=== PATIENT | male | born 1940 | race Caucasian/White ===

== ENCOUNTER 2019-11-23 23:53 | Inpatient (IN) ==
[2019-11-24] MEDS ORDERED: NS 1,000 ML IV ONE (00:25)
[2019-11-24 00:57] LABS: BASO# 0.02 X1000 (0.0-0.2); BASO% 0.3 % (0.0-0.8); EOS# 0.05 X1000 (0.0-0.7); EOS% 0.8 % (0.0-10.0); HEMOGLOBIN 11.7 g/dL (14.0-18.0); IMM GRAN# 0.01 X1000 (0.0-0.04); IMM GRAN% 0.2 % (0.0-0.5); LYMPH# 0.74 X1000 (1.2-3.4); LYMPH% 11.4 % (20.5-51.1); MCH 31.6 PG (27-31); MCHC 33.4 g/dL (33-37); MCV 94.6 FL (81-99); MONO# 0.89 X1000 (0.11-0.59); MONO% 13.7 % (1.7-9.3); MPV 9.5 FL (7.4-10.4); NEUT# 4.79 X1000 (1.4-6.5); NEUT% 73.6 % (42.2-75.2); PLT 150 X1000 (130-400); RDW 13.3 % (11.5-14.5)
[2019-11-24 01:10] LABS: ALBUMIN 3.5 g/dL (3.5-5.0); ALKALINE PHOSPHATASE 55 U/L (32-122); BUN 18 mg/dL (8-22); CALCIUM 8.4 mg/dL (8.8-10.2); CREATININE 0.7 mg/dL (0.7-1.2); ESTIMATED GFR > 60; GLUCOSE 103 mg/dL (70-104); GOT 29 U/L (10-34); GPT 16 U/L (10-44); TCO2 22 mmol/L (25-35); TOTAL PROTEIN 6.7 g/dL (6.3-8.3)
--- NOTE | 2019-11-24 01:21 | PROVIDER DOCUMENTATION ---
This chart was entered by Donita Quezada Scribe, acting as scribe for Ayde Araiza MD. HPI-Fever - General Chief Complaint: Fever Stated Complaint: FEVER/WHEEZING/CONFUSION Time Seen by Provider: 11/24/19 00:01 Source: patient, family Allergies/Adverse Reactions: Patient Allergies Allergy/AdvReac Type Severity Reaction Status Date / Time No Known Allergies Allergy Verified 11/24/19 00:04 Home Medications: Home Medication List Medication Instructions Recorded Confirmed Last Taken Type Atenolol [Tenormin] 50 mg PO DAILY 08/18/19 11/24/19 08/18/19 History Finasteride [Proscar] 5 mg PO DAILY 08/18/19 11/24/19 08/18/19 History Losartan [Cozaar] 100 mg PO DAILY 08/18/19 11/24/19 08/18/19 History Tamsulosin [Flomax] 0.4 mg PO BID 08/18/19 11/24/19 08/18/19 History Oseltamivir [Tamiflu] 45 mg PO BID 11/24/19 11/24/19 Unknown History - History of Present Illness-Fever Nature of Presenting Problem: pt is a 78 yowm presenting w/family to er w/cc pt [facility] he was dx w/flu friday, been on tamiflu since yest, pt had increased confusion, trouble ambulating fall yest and tonight, weakness and fever of 100.2. pt was given 4 doses of tamiflu (the daughter stopped tamiflu as she thought it was making him more confused). pt taking otc oscillococcinum otc. denies diarrhea, sob, cp, dizziness, xavier and dysuria. pt stays at independent living facility, fmily been staying w/pt bc of flu dx. At [place] [facility] pt is independent and has mild dementia as per daughter. Fever Severity/Quality: reports: low grade (100.2) Onset/Duration: reports: 5 days ago Timing: reports: still present Severity: reports: mild Context: reports: confusion, from snf (indep living) Recent Illness?: reports: other (influenza) Fever Therapy PEDIATRICIAN/MEDICAL DOCTOR: Initiated prescription medications (tamiflu), Initiated other (otc oscillococcinum) Cognitive Baseline: alert but confused Modifying Factors: improves with: nothing Associated Symptoms: reports: fever/chills, trouble walking, other (wheezing, fall) Similar Symptoms Previously?: Yes Recently seen or treated by another doctor?: Yes (seen at dr friday, +flu ) - Glascow Coma Score Best Eye Response (Jeronimo): (4) open spontaneously Best Verbal Response ([place]): (4) confused conversation Best Motor Response (Jeronimo): (5) localizes to pain [place] Total: 13 Review of Systems - Adult - REVIEW OF SYSTEMS - ADULT Constitutional: reports: see HPI, fever, other (increased confusion). denies: chills, fatique, night sweats Eyes: reports: no symptoms reported Ears, Nose, Mouth & Throat: reports: no symptoms reported Cardiovascular: reports: no symptoms reported Respiratory: reports: see HPI, wheezing. denies: cough, pleurisy, shortness of breath Gastrointestinal: reports: no symptoms reported. denies: diarrhea, nausea, vomiting Genitourinary: reports: no symptoms reported. denies: dysuria, hematuria, hesitency Musculoskeletal: reports: see HPI, muscle weakness. denies: joint pain, joint swelling, muscle aches Integumentary: reports: no symptoms reported Neurological: reports: see HPI, loss of balance. denies: dizziness/vertigo, headache/migraines, syncope Psychiatric: reports: no symptoms reported Endocrine: reports: no symptoms reported Hematologic/Lymphatic: reports: no symptoms reported Allergic/Immunologic: reports: no symptoms reported All Other Systems: Reviewed and Negative Past History - Adult - PAST MEDICAL HISTORY-ADULT Review of Records: reports: Nursing Assessment Review, Medications Reviewed, Social history reviewed & non-contributory. Major Childhood Illnesses: reports: denies history Cardiovascular: reports: HTN Respiratory: reports: denies history Gastrointestinal: reports: denies history Obstetrical/Gynecological: reports: denies history Genitourinary: reports: retention, other (enlarged prostate) Musculoskeletal: reports: denies history Neurological: reports: dementia Endocrine/Immune: reports: denies history Other Conditions: reports: denies history - PRIOR SURGERIES/PROCEDURES Surgical/Procedure History: reports: appendectomy, other - IMMUNIZATION STATUS Childhood Immunizations: See Nurse Assessment Flu Vaccine: See Nurse Assessment - FAMILY HISTORY Family History: reviewed, not pertinent - SOCIAL HISTORY Smoking: other (former smoker) Substance Use: alcohol Alcohol Use Frequency: rarely Physical Exam-General - PHYSICAL EXAM-ADULT Initial Vital Signs Reviewed: Yes - CONSTITUTIONAL General Appearance: appears well, no apparent distress, slow to respond. negative: cachetic, lethargic, combative - EYES Eyes: PERRL/EOMI, pink conjunctivae - HEAD, EARS, NOSE, MOUTH & THROAT HENMT: normocephalic/atraumatic, normal ENT inspection. negative: moist mucous membranes (dry muc mem) - NECK Neck: non-tender, full range of motion, supple, normal inspection - RESPIRATORY Respiratory: chest non-tender, lungs clear, normal breath sounds, no pleuratic chest pain, no respiratory distress, no accessory muscle use. negative: crackles, rhonchi, stridor, wheezing - CARDIOVASCULAR Cardiovascular: normal peripheral pulses, regular rate, rhythm - GASTROINTESTINAL (ABDOMEN) Abdominal Exam: normal bowel sounds, non tender, soft - MUSCULOSKELETAL Back Exam: normal inspection Extremity: normal range of motion, non-tender, normal inspection - SKIN Integumentary: normal color, normal turgor, warm/dry - NEUROLOGIC Neurologic: grossly normal - PSYCHIATRIC Psych/Mental Status: other (sharon x 2.). negative: oriented x 3 Progress - PLAN OF CARE/RESULTS Progress/Plan/Lab Results: Vital Signs - 8 hr 11/23/19 23:57 11/24/19 01:38 11/24/19 02:04 Temperature 98.1 F Pulse Rate 64 67 75 Respiratory Rate 18 22 24 Blood Pressure 218/107 203/105 228/134 O2 Sat by Pulse Oximetry 94 L 93 L 93 L 11/24/19 02:42 Temperature Pulse Rate Respiratory Rate Blood Pressure 203/102 O2 Sat by Pulse Oximetry Laboratory Results - last 24 hr 11/24/19 11/24/19 11/24/19 00:40 00:40 00:40 WBC 6.50 RBC 3.70 L Hgb 11.7 L Hct 35.0 L MCV 94.6 MCH 31.6 H MCHC 33.4 RDW Std Deviation 13.3 Plt Count 150 MPV 9.5 Immature Gran % (Auto) 0.2 Neut % (Auto) 73.6 Lymph % (Auto) 11.4 L [place] % (Auto) 13.7 H Eos % (Auto) 0.8 Baso % (Auto) 0.3 Immature Gran # (Auto) 0.01 Neut # (Auto) 4.79 Lymph # (Auto) 0.74 L [place] # (Auto) 0.89 H Eos # (Auto) 0.05 Baso # (Auto) 0.02 Sodium 135 L Potassium 3.5 Chloride 100 Carbon Dioxide 22 L Anion Gap 13 BUN 18 Creatinine 0.7 Estimated GFR/1.73 m2 > 60 BUN/Creatinine Ratio 26 Glucose 103 Calculated Osmolality 272 Calcium 8.4 L Total Bilirubin 0.90 AST 29 ALT 16 Alkaline Phosphatase 55 Trp-J-Naityettadb Pept Total Protein 6.7 Albumin 3.5 Globulin 3.0 Albumin/Globulin Ratio 1.0 Plasma Lactate 0.8 Urine Source Urine Color Urine Turbidity Urine pH Ur Specific [place] Urine Protein Ur Glucose (Stick) Ur Ketones (Stick) Urine Blood Urine Nitrite Urine Bilirubin Urobilinogen Dipstick Urine Leukocytes Urine WBC (Auto) Urine RBC (Auto) U Epithel Cells (Auto) Urine Bacteria (Auto) 11/24/19 11/24/19 00:40 03:03 WBC RBC Hgb Hct MCV MCH MCHC RDW Std Deviation Plt Count MPV Immature Gran % (Auto) Neut % (Auto) Lymph % (Auto) [place] % (Auto) Eos % (Auto) Baso % (Auto) Immature Gran # (Auto) Neut # (Auto) Lymph # (Auto) [place] # (Auto) Eos # (Auto) Baso # (Auto) Sodium Potassium Chloride Carbon Dioxide Anion Gap BUN Creatinine Estimated GFR/1.73 m2 BUN/Creatinine Ratio Glucose Calculated Osmolality Calcium Total Bilirubin AST ALT Alkaline Phosphatase Zqu-I-Uyyrwaxfwku Pept 5784 H Total Protein Albumin Globulin Albumin/Globulin Ratio Plasma Lactate Urine Source CLEAN CATCH Urine Color YELLOW Urine Turbidity CLEAR Urine pH 7.5 Ur Specific [place] 1.008 Urine Protein NEGATIVE Ur Glucose (Stick) NEGATIVE Ur Ketones (Stick) TRACE A Urine Blood LARGE A Urine Nitrite NEGATIVE Urine Bilirubin NEGATIVE Urobilinogen Dipstick NORMAL Urine Leukocytes NEGATIVE Urine WBC (Auto) <10 Urine RBC (Auto) TNTC A U Epithel Cells (Auto) <10 Urine Bacteria (Auto) NEGATIVE Orders Category Date Time Status Admit - [facility] Routine AdmDCTranf 11/24/19 04:05 Active Saline Loc NOW Care 11/24/19 00:25 Active CHEST-PORTABLE [RAD] Stat Exams 11/24/19 00:[address] HEAD W/O CONTRAST [CT] Stat Exams 11/24/19 00:25 Taken BLOOD CULTURE [BLDCUL] Stat Lab 11/24/19 00:44 Ordered BNP [PRO B-NATRIURETIC PEPTIDE] Stat Lab 11/24/19 00:40 Completed CBC WITH DIFF [HEME] Stat Lab 11/24/19 00:40 Completed COMPREHENSIVE METABOLIC PANEL [CHEM] Stat Lab 11/24/19 00:40 Completed LACTATE, PLASMA [CHEM] Stat Lab 11/24/19 00:40 Completed URINALYSIS W/POSS RFLX CULT [URINALYSIS] Stat Lab 11/24/19 03:03 Completed 0.9% Sodium Chloride Inj [Ns] 1,000 ml Med 11/24/19 00:25 Discontinued IV 999 mls/hr Azithromycin 500 mg/Ns [Zithromax 500 mg/Ns] Med 11/24/19 04:04 Active 500 mg in 250 ml IV NOW CefTRIAXONE [Rocephin] 1 gm Med 11/24/19 04:04 Active 0.9% Sodium Chloride Inj [Ns] 50 ml IV NOW Clonidine [Catapres] Med 11/24/19 02:43 Discontinued 0.1 mg PO NOW ONE Enalaprilat [Vasotec] Med 11/24/19 03:48 Discontinued 0.625 mg IV NOW ONE Furosemide [Lasix] Med 11/24/19 03:48 Discontinued 40 mg IV NOW ONE Lidocaine 2% Jelly Appl [Xylocaine 2% Jelly Uroject] Med 11/24/19 02:07 Discontinued 10 ml .ROUTE .STK-MED ONE Lorazepam [Ativan] Med 11/24/19 03:37 Discontinued 0.5 mg IV NOW ONE Pulse Oximetry Stat Oth 11/24/19 00:25 Completed Transfer/Admit Order [TRANSFER] Routine Transfer 11/24/19 04:07 Ordered Result Diagrams: 11/24/19 00:40 11/24/19 00:40 - REASSESSMENT Reassessment #1 Time Reassessed: 02:00 Status: other (questionable RLL infiltrate. UA pending) Reassessment #2 Time Reassessed: 03:00 Status: other (BP continued to be elevated, Clonidine ordered. Pt is little restless, will order some clonidine.) Reassessment #3 Time Reassessed: 03:45 Status: other (BP still elevated, will add lasix and enalaprilat. UA shows hematuria, negative leucks and Nitratites. Will admit, d/w Dr Robertson. Will add abxs for CAP, continue tamiflu.) - CONSULTS/PCP/HOSPITALIST Notification #1 *Consult/PCP/Hospitalist*: d/w Dr Robertson Time Discussed: 03:55 Consult Disposition: Admit Departure - Departure Date of Disposition Decision: 11/24/19 Time of Disposition Decision: 04:03 DIAGNOSIS: CHF (congestive heart failure), Generalized weakness, Frequent falls, Pneumonia, AMS (altered mental status), Uncontrolled hypertension Disposition: ADMITTED INPATIENT 09 Certified Medical Emergency: Emergent Condition: Stable Additional Instructions: ED Follow Up Instructions: You have been treated by a care provider in the Emergency Department. These instructions are being provided to you so you can have an understanding of how to care for yourself upon discharge. Upon discharge from the Emergency Department, you are responsible for making arrangements for follow-up care by a physician of your choice. Take all prescribed medications as directed. Return to the Emergency Department immediately for any new or worsening symptoms. You may call the Physician Referral phone number at [phone] to obtain a list of Physicians who are taking new patients. Referrals and Follow-Ups: None,PCP [NON-STAFF PROVIDER] - Discharge Education: Influenza, Adult, [id number] - Critical Care Note This patient required my direct & personal management of CC.: No Attestation - Physician/ MILAGRO Attestation Patient care was provided by Advanced Practice Provider:: No The physician spent face to face time with patient:: Yes Advanced Practice Provider documentation review:: Supervising physician onsite and consulted in the evaluation and care of this patient. The physician did have a face to face encounter with the patient. This chart was documented by the indicated scribe, (Donita Quezada Scribe) and accurately reflects the services I performed and decisions made by me, Ayde Araiza MD, as attested by the provider's signature.
[2019-11-24 02:07] LABS: CHLORIDE 100 mmol/L (98-107); POTASSIUM 3.5 mmol/L (3.5-5.1); SODIUM 135 mmol/L (136-145)
[2019-11-24] MEDS ORDERED: XYLOCAINE 2% JELLY UROJECT ONE (02:07)
[2019-11-24 02:12] LABS: AGAP 13; COSMO 272
[2019-11-24] MEDS ORDERED: CATAPRES PO ONE (02:43)
[2019-11-24 03:09] LABS: URINE SOURCE CLEAN CATCH
[2019-11-24] MEDS ORDERED: ATIVAN IV ONE (03:37)
[2019-11-24 03:42] LABS: BILIRUBIN URINE NEGATIVE (NEGATIVE); BLOOD URINE LARGE (NEGATIVE); COLOR YELLOW; GLUCOSE URINE NEGATIVE (NEGATIVE); KETONE URINE TRACE mg/dL (NEGATIVE); LEUKOCYTES URINE NEGATIVE (NEGATIVE); NITRITE URINE NEGATIVE (NEGATIVE); PH URINE 7.5; PROTEIN URINE NEGATIVE (NEGATIVE); SP GRAVITY URINE 1.008; TURBIDITY URINE CLEAR (CLEAR); UROBILINOGEN URINE NORMAL (NORMAL)
[2019-11-24 03:44] LABS: UR EPITHELIAL CELLS <10 /HPF (<10); URINE BACTERIA NEGATIVE /HPF; URINE RBC TNTC /HPF (<10); URINE WBC <10 /HPF (<10)
[2019-11-24] MEDS ORDERED: VASOTEC IV ONE ×2 (03:48→04:42)
[2019-11-24] MEDS ORDERED: LASIX IV ONE (03:48)
[2019-11-24] MEDS ORDERED: ROCEPHIN 1 GM in NS 50 ML IV ONE (04:04)
[2019-11-24] MEDS ORDERED: ZITHROMAX 500 MG/NS 500 MG/250 ML IVPB IV ONE (04:04)
[2019-11-24] MEDS ORDERED: CATAPRES PO PRN (04:40)
--- NOTE | 2019-11-24 08:53 | Diag Imaging Result Doc PS360 ---
CHEST-PORTABLE - 11/24/2019 INDICATION: cough COMPARISON: None FINDINGS: There is cardiomegaly and central pulmonary vascular congestion. No infiltrates or edema. No large pleural effusion. IMPRESSION: Cardiomegaly and pulmonary vascular congestion. Electronically signed by Damien Crow 11/24/2019 8:51 AM
--- NOTE | 2019-11-24 09:23 | HISTORY AND PHYSICAL ---
PRIMARY CARE PHYSICIAN: Dr. Chinchilla. CHIEF COMPLAINT: The patient was diagnosed with the flu on Friday, started Tamiflu and has had increased confusion with a fall x2 and increased weakness. HISTORY OF PRESENTING ILLNESS: This is a 78-year-old male, who presents to [facility] ER with family at the time of arrival, stating that he had been diagnosed with the flu on Friday and started Tamiflu, had taken about 4 doses of the Tamiflu, but continued to have increased weakness. He had 2 falls and increased confusion. Had to be placed in soft wrist restraints bilaterally due to pulling at equipment and confusion. When he arrived, his blood pressure was 218/107. He was satting 94% on room air. Labs were fairly unremarkable. He did have an elevated proBNP at 5784. No previous to compare to. His chest x- ray per ER read was a right lower lobe infiltrate, so he is being admitted for further evaluation and treatment. PAST MEDICAL HISTORY: Dementia, hypertension and an enlarged prostate. PAST SURGICAL HISTORY: An appendectomy. FAMILY HISTORY: Reviewed and noncontributory. SOCIAL HISTORY: Currently lives in an assisted living facility independently. He is a former smoker. Denied any alcohol or illicit drug use. ALLERGIES: No known drug allergies. HOME MEDICATIONS: We will hold his Tamiflu 45 mg p.o. b.i.d., continue his Tenormin 50 mg p.o. daily, Proscar 5 mg p.o. daily and Cozaar 100 mg p.o. daily, sertraline 100 mg p.o. daily and Flomax 0.4 mg p.o. b.i.d. LABORATORY DATA: Showed a white blood cell count of 6.50, hemoglobin 11.7, hematocrit 35, platelets 150. Sodium 135, potassium 3.5, chloride 100, CO2 22. BUN of 18, creatinine 0.7, glucose 103. ProBNP of 5784. Plasma lactate of 0.8. Urinalysis was negative, except for blood. IMAGING STUDIES: Chest x-ray per ER documentation showed a right lower lobe infiltrate. Awaiting Radiology read and head CT is pending. REVIEW OF SYSTEMS: Unable to obtain from patient. The family does report increased weakness, increased confusion, fall x2 since being diagnosed with the flu Friday. PHYSICAL EXAMINATION: VITAL SIGNS: On arrival, he had a temperature of 98.1 degrees, pulse 64, respirations 18, blood pressure 218/107, satting 94% on room air. He was given several antihypertensive medications in the emergency room, but it did not seem to affect his blood pressure. This morning, it is 206/103. We will continue his home medications, and I will also add some hydralazine p.r.n. GENERAL: This is a 78-year-old male lying in the bed, confused x3. Remains in bilateral soft wrist restraints due to confusion and pulling at medical equipment. HENT: Normocephalic, atraumatic. Normal ENT inspection. Oropharynx and nares are clear. EYES: Pupils are equal, round, reactive to light and accommodation. Extraocular movements are intact. NECK: Normal inspection. Normal range of motion. LUNGS: Clear to auscultation bilaterally with equal lung expansion and chest wall movement. HEART: With regular rate and rhythm. No murmurs, rubs, or gallops. ABDOMEN: Soft, nontender, nondistended. Bowel sounds are present x4 quadrants. MUSCULOSKELETAL: He had 5/5 strength x4 extremities. NEUROLOGICAL: The cranial nerves 2-12 appear grossly intact. ASSESSMENT: 1. Metabolic encephalopathy. 2. Right lower lobe pneumonia. 3. Uncontrolled hypertension. 4. Dementia. Aware. PLAN: He was admitted to the medical unit, placed on a healthy heart diet, telemetry. We will place him on Rocephin 1 gram IV q. 24 hours and azithromycin 500 mg IV q. 24 hours. He received a dose of each of those in the emergency room. We will continue his home medications as previously identified. I am going to place him on hydralazine 10 mg IV q. 4 hours p.r.n. for systolic blood pressure greater than 190, diastolic greater than 100. All of his electrolytes looked well, so we are going to hold off on giving him any fluids as he did have a mild bump in his proBNP, but I do not have anything to compare it with previously. He received 4 doses of the Tamiflu. I am not going to continue that at this point. He is on respiratory precautions. Recheck a CBC, BMP in the a.m. and further orders after seen by attending. Dictated by DALLAS Linder for Dwayne Robertson MD cc: Daja DejanDALLAS cisse MD Akram Haggag, MD
[2019-11-24] MEDS: COZAAR PO SCH (09:57)
[2019-11-24] MEDS: TENORMIN PO SCH (09:57)
[2019-11-24] MEDS: ZOLOFT PO SCH (09:57)
[2019-11-24] MEDS: PROSCAR PO SCH (09:57)
[2019-11-24] MEDS: FLOMAX PO SCH ×2 (09:57→20:56)
--- NOTE | 2019-11-24 10:18 | Diag Imaging Result Doc PS360 ---
CT HEAD W/O CONTRAST - 11/24/2019 INDICATION: altered mental status COMPARISON: 08/18/2019 FINDINGS: Stable moderate diffuse cerebral atrophy. Stable advanced cerebral white matter chronic microvascular ischemia. No intracranial mass or hemorrhage. The skull is intact. The sinuses are clear. IMPRESSION: No acute process. This exam was performed using automated exposure control, adjustment of mA or kV according to patient size, and/or use of iterative reconstruction technique Electronically signed by Damien Crow 11/24/2019 10:16 AM
[2019-11-24] MEDS: DUONEB (A & A) INH SCH ×4 (11:12→22:51)
[2019-11-24] MEDS ORDERED: RISPERDAL M-TAB PO ONE (12:45)
--- NOTE | 2019-11-24 13:09 | HISTORY AND PHYSICAL ---
ADDENDUM: The patient came in with confusion. He was recently diagnosed with the flu. He has been on 4 doses of Tamiflu. It was stopped because there was concern that it was making him more confused. He does have baseline dementia. He also had very high blood pressure. He is being treated for pneumonia, but his x-ray is being read as heart failure and not pneumonia. He does not have a white count. He does not have any fever. He has empirically been placed on antibiotics, but I think this may be a misdiagnosis. It looks like he may have some heart failure. PROBLEM LIST: 1. Congestive heart failure exacerbation presumably. May have been triggered by the flu. We will continue diuretics. He is on medications already for blood pressure. These may need to be further adjusted. He is maxed out on those other two, so we may need to put him on some Norvasc and see how he does. 2. Pneumonia. If his procalcitonin level is normal, I do not think we necessarily need to continue antibiotics. 3. Recent flu. He only got two doses of treatment, but I guess there is concern it may be making him confused. I think it is probably just the flu. He is in restraints. I am going to start some Risperdal, and will see how he does. 4. Disposition. Pending his clinical status. cc: Dwayne Robertson MD
[2019-11-24] MEDS: LASIX IV SCH (16:45)
[2019-11-24] MEDS: RISPERDAL M-TAB PO SCH (20:57)
[2019-11-25] MEDS: DUONEB (A & A) INH SCH ×6 (03:01→22:49)
[2019-11-25] MEDS: ROCEPHIN 1 GM in NS 50 ML IV SCH (03:46)
[2019-11-25] MEDS: LASIX IV SCH ×2 (03:46→15:24)
[2019-11-25] MEDS ORDERED: ZITHROMAX 500 MG/NS 500 MG/250 ML IVPB IV SCH (05:00)
[2019-11-25 06:27] LABS: BASO# 0.01 X1000 (0.0-0.2); BASO% 0.2 % (0.0-0.8); EOS# 0.02 X1000 (0.0-0.7); EOS% 0.3 % (0.0-10.0); HEMATOCRIT 37.7 % (42.0-52.0); HEMOGLOBIN 12.4 g/dL (14.0-18.0); IMM GRAN# 0.02 X1000 (0.0-0.04); IMM GRAN% 0.3 % (0.0-0.5); LYMPH# 0.74 X1000 (1.2-3.4); LYMPH% 11.6 % (20.5-51.1); MCH 30.7 PG (27-31); MCHC 32.9 g/dL (33-37); MCV 93.3 FL (81-99); MONO# 0.85 X1000 (0.11-0.59); MONO% 13.3 % (1.7-9.3); MPV 9.4 FL (7.4-10.4); NEUT# 4.73 X1000 (1.4-6.5); NEUT% 74.3 % (42.2-75.2); PLT 179 X1000 (130-400); RBC 4.04 XMIL (4.7-6.1); WBC 6.37 X1000 (4.8-10.8)
[2019-11-25 07:26] LABS: SODIUM 141 mmol/L (136-145)
[2019-11-25 07:27] LABS: AGAP 14; BUN 18 mg/dL (8-22); CALCIUM 8.6 mg/dL (8.8-10.2); CHLORIDE 100 mmol/L (98-107); COSMO 283; CREATININE 0.8 mg/dL (0.7-1.2); ESTIMATED GFR > 60; GLUCOSE 99 mg/dL (70-104); TCO2 27 mmol/L (25-35)
[2019-11-25 07:28] LABS: POTASSIUM 2.4 mmol/L (3.5-5.1)
[2019-11-25] MEDS ORDERED: KLOR-CON PO ONE (07:28)
[2019-11-25] MEDS ORDERED: POTASSIUM CHLORIDE 20 MEQ/SWI 20 MEQ/100 ML IVPB IV ONE (07:29)
[2019-11-25] MEDS ORDERED: NS 1,000 ML ONE (07:51)
[2019-11-25] MEDS: COZAAR PO SCH (08:05)
[2019-11-25] MEDS: RISPERDAL M-TAB PO SCH ×2 (08:05→19:59)
[2019-11-25] MEDS: PROSCAR PO SCH (08:05)
[2019-11-25] MEDS: TENORMIN PO SCH (08:05)
[2019-11-25] MEDS: FLOMAX PO SCH ×2 (08:05→19:59)
[2019-11-25] MEDS: ZOLOFT PO SCH (08:06)
--- NOTE | 2019-11-25 11:17 | PROGRESS NOTE ---
DATE: 11/25/2019 SUBJECTIVE: Patient with no new complaints. Family is not currently available. Staff notes that he had issues with agitation overnight, but no other issues currently. OBJECTIVE: Vital Signs: Temperature 97.5 degrees, pulse 98, respiratory rate 18, BP 165/85. General: The patient is awake, but confused. Does not answer questions or follow commands. He is in no distress. HEENT: Normocephalic, atraumatic. DOROTHY. Neck: Supple. CV: Regular rate. Chest: Clear. Abdomen: Soft. Extremities: Moves all extremities. ASSESSMENT: 1. Acute delirium. 2. Metabolic encephalopathy secondary to pneumonia and influenza. 3. Influenza. 4. Pneumonia. 5. Uncontrolled hypertension. Continue hydralazine. 6. Hypoxemia. PLAN: Will continue the patient on oxygen. Will continue symptomatic care. Further orders as needed. cc: Salomon Mejia MD
--- NOTE | 2019-11-25 15:19 | ECHO REPORT ---
ORDER DATE: 11/25/2019 ECHOCARDIOGRAPHIC MEASUREMENTS: 1. Interventricular septum 1.3. 2. Left ventricular posterior wall 1.4. 3. Diastolic diameter 5.2. 4. Left atrium 4. 5. Aorta 3.6. SUMMARY: 1. Aortic valve leaflets are trileaflet. 2. Mitral valve was normal. 3. Tricuspid valve was normal. There is left atrial enlargement. Normal left ventricular cavity size. Concentric left ventricular hypertrophy. Estimated ejection fraction of 65%. 4. There is mild mitral regurgitation. 5. Mild tricuspid regurgitation. Peak velocity across the tricuspid valve was 3 m/sec. 6. Pulmonary artery systolic pressure of 46 mmHg. 7. Peak velocity across the aortic valve less than 2 m/sec. There is no aortic stenosis. There is mild aortic regurgitation. 8. There is no pericardial effusion or obvious intracardiac mass or thrombus. cc: MD Dwayne Hameed MD
[2019-11-25] MEDS: APRESOLINE IV PRN ×2 (17:25→22:23)
[2019-11-26] MEDS: ROCEPHIN 1 GM in NS 50 ML IV SCH (04:11)
[2019-11-26] MEDS: LASIX IV SCH ×2 (04:11→16:07)
[2019-11-26] MEDS: DUONEB (A & A) INH SCH ×6 (06:36→23:10)
--- NOTE | 2019-11-26 09:33 | PROGRESS NOTE ---
DATE: 11/26/2019 SUBJECTIVE: Patient is still confused, disoriented, does not answer questions nor follow commands. PHYSICAL EXAMINATION: Vital Signs: Reviewed. Temperature 99 degrees, respiratory rate 18, BP 172/82. General: Patient is awake, alert, pleasant, no distress. HEENT: Normocephalic. Neck: Supple. Cardiovascular: Regular rate. Chest: Clear. Abdomen: Soft. Extremities: No edema. Neurologic: Unable to assess given patient's confusion. He still is in soft restraints due to his confusion. ASSESSMENT: 1. Hypertension currently elevated, but stable. 2. Metabolic encephalopathy. 3. Right lower lobe pneumonia. 4. Dementia. 5. Hypokalemia. We will replace and recheck. PLAN: We will continue patient in the hospital. Continue treatment. Further orders as needed. cc: Salomon Mejia MD
[2019-11-26] MEDS: TENORMIN PO SCH (10:01)
[2019-11-26] MEDS: FLOMAX PO SCH ×2 (10:01→21:21)
[2019-11-26] MEDS: COZAAR PO SCH (10:01)
[2019-11-26] MEDS: PROSCAR PO SCH (10:01)
[2019-11-26] MEDS: ZOLOFT PO SCH (10:01)
[2019-11-26] MEDS: RISPERDAL M-TAB PO SCH ×2 (10:01→21:20)
[2019-11-26 10:07] LABS: HEMATOCRIT 41.3 % (42.0-52.0); HEMOGLOBIN 13.6 g/dL (14.0-18.0); MCH 30.9 PG (27-31); MCHC 32.9 g/dL (33-37); MCV 93.9 FL (81-99); MPV 9.2 FL (7.4-10.4); RBC 4.4 XMIL (4.7-6.1); RDW 13.2 % (11.5-14.5); WBC 6.51 X1000 (4.8-10.8)
[2019-11-26 10:22] LABS: AGAP 14; ALKALINE PHOSPHATASE 60 U/L (32-122); BUN 19 mg/dL (8-22); CALCIUM 9.4 mg/dL (8.8-10.2); CHLORIDE 101 mmol/L (98-107); COSMO 287; CREATININE 0.7 mg/dL (0.7-1.2); ESTIMATED GFR > 60; GLUCOSE 123 mg/dL (70-104); GOT 25 U/L (10-34); GPT 14 U/L (10-44); MAGNESIUM 1.7 mg/dL (1.5-2.7); SODIUM 142 mmol/L (136-145); TCO2 27 mmol/L (25-35); TOTAL PROTEIN 7.6 g/dL (6.3-8.3)
[2019-11-26] MEDS: KLOR-CON PO SCH ×2 (16:11→21:20)
[2019-11-26] MEDS ORDERED: PNEUMOVAX 23 IM ONE (19:24)
[2019-11-27] MEDS: DUONEB (A & A) INH SCH ×6 (02:51→23:38)
[2019-11-27] MEDS: ROCEPHIN 1 GM in NS 50 ML IV SCH (04:29)
[2019-11-27] MEDS: LASIX IV SCH (04:29)
--- NOTE | 2019-11-27 07:10 | Diag Imaging Result Doc PS360 ---
CHEST-PORTABLE - 11/27/2019 INDICATION: follow PNA/pulm edema COMPARISON: 11/24/2019 FINDINGS: The lungs are normally expanded and clear. Heart size and mediastinal contours are normal. No pneumothorax or pleural effusion. IMPRESSION: Negative exam. Electronically signed by Damien Crow 11/27/2019 7:07 AM
[2019-11-27] MEDS: KLOR-CON PO SCH ×2 (09:18→21:23)
[2019-11-27] MEDS: COZAAR PO SCH (09:18)
[2019-11-27] MEDS: ZOLOFT PO SCH (09:18)
[2019-11-27] MEDS: TENORMIN PO SCH (09:18)
[2019-11-27] MEDS: RISPERDAL M-TAB PO SCH ×2 (09:18→21:23)
[2019-11-27] MEDS: PROSCAR PO SCH (09:19)
[2019-11-27] MEDS: FLOMAX PO SCH ×2 (09:19→21:23)
--- NOTE | 2019-11-27 17:32 | PROGRESS NOTE ---
DATE: 11/27/2019 SUBJECTIVE: The patient has no complaints. He is calm. PHYSICAL EXAMINATION: Vital Signs: Reviewed. Temperature 98, pulse 81, respiratory rate 18, BP 142/90. General: Patient is awake, currently in no distress. HEENT: Normocephalic. Neck: Supple. Cardiovascular: Regular rate. Chest: Clear. Abdomen: Soft. Extremities: Moves all extremities. ASSESSMENT: 1. Metabolic encephalopathy, continuing to be problematic. 2. Hypertension, improving. 3. Hypokalemia, improving. 4. Right lower lobe pneumonia. 5. Dementia. PLAN: We will continue patient in the hospital. We will attempt to remove his restraints and will follow. Hopefully to rehab soon. cc: Salomon Mejia MD
[2019-11-28] MEDS: DUONEB (A & A) INH SCH ×7 (03:15→23:23)
[2019-11-28] MEDS: ROCEPHIN 1 GM in NS 50 ML IV SCH (04:24)
[2019-11-28 06:45] LABS: HEMOGLOBIN 12.7 g/dL (14.0-18.0); MCH 30.8 PG (27-31); MCHC 32.6 g/dL (33-37); MCV 94.4 FL (81-99); MPV 9.3 FL (7.4-10.4); RBC 4.13 XMIL (4.7-6.1); RDW 13.1 % (11.5-14.5); WBC 7.77 X1000 (4.8-10.8)
[2019-11-28 06:53] LABS: AGAP 13; ALBUMIN 3.8 g/dL (3.5-5.0); ALKALINE PHOSPHATASE 62 U/L (32-122); BUN 39 mg/dL (8-22); CALCIUM 9.6 mg/dL (8.8-10.2); CHLORIDE 103 mmol/L (98-107); COSMO 293; CREATININE 0.8 mg/dL (0.7-1.2); ESTIMATED GFR > 60; GLUCOSE 105 mg/dL (70-104); GOT 30 U/L (10-34); GPT 13 U/L (10-44); MAGNESIUM 2.1 mg/dL (1.5-2.7); POTASSIUM 3.2 mmol/L (3.5-5.1); SODIUM 142 mmol/L (136-145); TCO2 26 mmol/L (25-35); TOTAL PROTEIN 7.3 g/dL (6.3-8.3)
[2019-11-28] MEDS ORDERED: KLOR-CON PO ONE (09:36)
[2019-11-28] MEDS: COZAAR PO SCH (09:55)
[2019-11-28] MEDS: ZOLOFT PO SCH (09:55)
[2019-11-28] MEDS: TENORMIN PO SCH (09:56)
[2019-11-28] MEDS: KLOR-CON PO SCH ×2 (09:56→21:19)
[2019-11-28] MEDS: RISPERDAL M-TAB PO SCH ×2 (09:56→21:20)
[2019-11-28] MEDS: PROSCAR PO SCH (09:56)
[2019-11-28] MEDS: FLOMAX PO SCH ×2 (09:56→21:19)
--- NOTE | 2019-11-28 12:52 | PROGRESS NOTE ---
DATE: 11/28/2019 SUBJECTIVE: Patient with no complaints. States that he wants a cup of coffee. OBJECTIVE: Vital Signs: Temp 98, pulse 78, respiratory rate 18, BP 166/60. General: The patient is awake. He is in no distress. HEENT: Normocephalic. Neck: Supple. Cardiovascular: Regular rate. No murmurs. Chest: Clear. Abdomen: Soft. Extremities: Moves all extremities, although generalized weakness. ASSESSMENT: 1. Metabolic encephalopathy, improving. 2. Right lower lobe pneumonia. Continue antibiotics. 3. Hypertension, stable. 4. Hypokalemia, improving. PLAN: We are going to continue the patient in the hospital until which time he can transition to rehab. cc: Salomon Mejia MD
[2019-11-28] MEDS: APRESOLINE IV PRN (22:20)
[2019-11-29] MEDS: ROCEPHIN 1 GM in NS 50 ML IV SCH (03:01)
[2019-11-29] MEDS: DUONEB (A & A) INH SCH ×4 (03:15→15:27)
[2019-11-29] MEDS ORDERED: NORVASC PO SCH (09:00)
[2019-11-29] MEDS: FLOMAX PO SCH (09:30)
[2019-11-29] MEDS: RISPERDAL M-TAB PO SCH (09:31)
[2019-11-29] MEDS: TENORMIN PO SCH (09:31)
[2019-11-29] MEDS: KLOR-CON PO SCH (09:31)
[2019-11-29] MEDS: COZAAR PO SCH (09:31)
[2019-11-29] MEDS: ZOLOFT PO SCH (09:31)
[2019-11-29] MEDS: PROSCAR PO SCH (09:31)
--- NOTE | 2019-11-29 12:25 | DISCHARGE SUMMARY ---
ADMISSION DATE: 11/24/2019 DISCHARGE DATE: 11/29/2019 PRIMARY CARE PHYSICIAN: Dr. Chinchilla. ADMISSION DIAGNOSES: 1. Metabolic encephalopathy. 2. A right lower lobe pneumonia. 3. Uncontrolled hypertension. 4. Dementia. DISCHARGE DIAGNOSES: 1. Metabolic encephalopathy, improved. 2. Right lower lobe pneumonia, improved. 3. Hypertension. 4. Hypokalemia, improved. SUMMARY OF FINDINGS: This is a 78-year-old male. Who presented to the ER stating that he had been diagnosed with the flu on the Friday before and had started Tamiflu, but continued to have increased weakness with 2 falls and increased confusion. He had been placed in soft wrist restraints bilaterally due to pulling at his equipment and confusion. When he arrived, his blood pressure was also noted to be 218/107. He had an elevated proBNP of 5784 with no previous to compare to. His chest x-ray showed a right lower lobe infiltrate. He was admitted, placed on IV antibiotics. We placed him on some hydralazine p.r.n. He has improved. His white blood cell count remains normal. He did have a low potassium down to 2.4, now up to 3.2. His chest x-ray on 11/27/2019 showed a negative exam, and he has remained afebrile for greater than 24 hours, although it is now felt that he can safely be discharged to rehab. DISCHARGE MEDICATIONS: Include Omnicef 300 mg p.o. b.i.d. x7 days, losartan 100 mg p.o. daily, atenolol 50 mg p.o. daily, finasteride 5 mg p.o. daily, tamsulosin 0.4 mg p.o. b.i.d., sertraline 100 mg p.o. daily, vitamin C 500 mg p.o. daily, aspirin 81 mg p.o. daily, probiotic p.o. daily, vitamin D 3 5000 units p.o. daily, fish oil 1200 mg p.o. daily, 10 mg p.o. daily, multivitamin p.o. daily, Co-Q 10 100 mg p.o. daily, vitamin B 12 1000 mcg sublingually daily, Saw palmetto capsule 1 p.o. daily and magnesium 400 mg p.o. daily. FOLLOWUP: He will follow up with his primary care physician once he has completed his rehab stay. TIME SPENT: This is a 35 minute discharge. Dictated by DALLAS Linder for Salomon Mejia MD cc: DALLAS Linder MD Akram Haggag, MD MTDD
[2019-11-29 13:53] VITALS: BP 206/104
[2019-11-29] MEDS: APRESOLINE IV PRN (14:14)
--- NOTE | 2019-11-30 08:44 | DISCHARGE SUMMARY ---
ADMISSION DATE: 11/24/2019 DISCHARGE DATE: 11/29/2019 Overall, patient has improved. He was admitted to the hospital with metabolic encephalopathy secondary to right lower lobe pneumonia as well as hypertension. Blood pressures although elevated or not nearly severe. We did add Norvasc. Potassium was noted to be low on several occasions and was replaced. His metabolic encephalopathy appeared to have improved. He does have baseline. We will discharge him to rehab. cc: Salomon Mejia MD
== END 2019-11-29 16:30 ==
LOC: P.ED 23:53 → SUATTDRO 11-24 04:32 → P.MEDSURG 11-24 04:32
PROVIDERS: ATTEND Family Medicine

== ENCOUNTER 2019-12-05 07:13 | Inpatient (IN) ==
[2019-12-05] MEDS ORDERED: MORPHINE IV ONE (07:22)
[2019-12-05] MEDS ORDERED: NS 1,000 ML IV ONE (07:22)
[2019-12-05] MEDS ORDERED: ZOFRAN IV ONE (07:22)
--- NOTE | 2019-12-05 07:40 | Diag Imaging Result Doc PS360 ---
EXAM: CHEST-2 VIEWS 12/05/2019 HISTORY: fall right rib pain, recent pneumonia TECHNIQUE: AP and lateral chest COMMENT: There are fractures of the posterior seventh and eighth ribs on the right. There is no evidence of pneumothorax or pleural fluid collection. Overall there has been no significant change otherwise since 11/27/2019 considering differences in technique. IMPRESSION: Right rib fractures. Electronically signed by Malik Tovar 12/05/2019 7:37 AM
--- NOTE | 2019-12-05 08:09 | Diag Imaging Result Doc PS360 ---
EXAM: CT T-SPINE/L-SPINE W/O CON 12/05/2019 HISTORY: fall injury TECHNIQUE: This exam was performed using automated exposure control, adjustment of mA or kV according to patient size, and/or use of iterative reconstruction technique. COMMENT: Thoracic spine: There is bridging osteophyte formation throughout much of the thoracic spine with accentuated dorsal kyphosis. There is compression of the upper endplate of T12 and L1 with some retropulsion of fragments by less than 4 mm at T12. There is a large pleural fluid collection present on the right. There are apparent fractures of the posterior lateral right fourth, sixth, seventh, eighth, ninth, and 10th ribs. There is no evidence of pneumothorax. There is compressive atelectasis in the right lower lobe and some subsegmental atelectasis is seen in the left lower lobe. Lumbar spine: There is compression of the upper endplate of L1 with 5 mm of retropulsion of the posterior fragment. There is some concavity of the upper endplate of the L5 vertebral body which may also be due to to a compression fracture, however this is of uncertain age. There are no previous studies available for comparison. There is some disc bulge at the L4-5 level. There is disc bulge and mild spinal stenosis at L3-4 and somewhat severe spinal stenosis is present at the L2-3 level due to disc bulge and ligamentum flavum hypertrophy. There is also disc bulge at the L1-2 level. There is a fairly large cyst posterior to the right kidney which displaces the right kidney anteriorly. This is not entirely included on the yqezc-md-guja but is at least 7 cm in transverse dimension and over 14 cm in superior-inferior dimension. There appear to be at least two separate loculations.There is a large amount of stool present in the colon particularly in the cecum and rectosigmoid colon. IMPRESSION: 1. Compression fractures of T12 and L1 as described above. Multiple right rib fractures. 2. Right hemothorax. 3. Large right renal or pararenal cyst. Constipation. Other nonacute findings as described above. Electronically signed by Malik Tovar 12/05/2019 8:06 AM
--- NOTE | 2019-12-05 08:12 | Diag Imaging Result Doc PS360 ---
EXAM: CT HEAD/C-SPINE W/O CONTRAST 12/05/2019 HISTORY: head injury/pain TECHNIQUE: This exam was performed using automated exposure control, adjustment of mA or kV according to patient size, and/or use of iterative reconstruction technique. COMMENT: There are patchy periventricular white matter lucencies bilaterally and mild generalized cerebral atrophy is present. Compared to 11/24/2019 the appearance the brain has not changed significantly. There is no evidence of mass effect bleed or abnormal extra-axial fluid collection. The visualized paranasal sinuses are clear. The calvarium is intact. Cervical spine: There are no previous studies available for comparison. There is posterior osteophyte formation at C3-4 and C4-5. There is no evidence of prevertebral soft tissue swelling fracture or subluxation. The facets are aligned. There are hypertrophic changes present in the right C4-5 facet joint. IMPRESSION: 1. No evidence of acute intracranial disease. Chronic microvascular changes and atrophy. 2. Degenerative changes in the cervical spine without evidence of acute bony abnormality. Electronically signed by Malik Tovar 12/05/2019 8:09 AM
[2019-12-05 08:23] LABS: ALLEN TEST YES; BE 1.1 mmoll (-3.0-3.0); BLOOD TYPE ARTERIAL; HCO3-(ACT) 25.7 mmoll (20.0-26.0); METHB 1.1 % (0.0-1.5); O2HB 94.6 % (95.0-99.0); PCO2(98.6) 37 mmHg (35-45); PO2(98.6) 77 mmHg (60-100); SAMPLE BLOOD; SAO2 97.6 % (95.0-100.0); pH(98.6) 7.44 (7.35-7.45)
[2019-12-05 08:26] LABS: MODALITY ROOM AIR
[2019-12-05 08:37] LABS: URINE SOURCE CATH
[2019-12-05 08:43] LABS: BASO# 0.03 X1000 (0.0-0.2); BASO% 0.4 % (0.0-0.8); EOS# 0.16 X1000 (0.0-0.7); HEMATOCRIT 38.1 % (42.0-52.0); HEMOGLOBIN 12.1 g/dL (14.0-18.0); IMM GRAN# 0.02 X1000 (0.0-0.04); IMM GRAN% 0.2 % (0.0-0.5); LYMPH# 1.07 X1000 (1.2-3.4); LYMPH% 13.2 % (20.5-51.1); MCH 30.5 PG (27-31); MCHC 31.8 g/dL (33-37); MONO# 0.86 X1000 (0.11-0.59); MONO% 10.6 % (1.7-9.3); MPV 9.5 FL (7.4-10.4); NEUT# 5.94 X1000 (1.4-6.5); NEUT% 73.6 % (42.2-75.2); PLT 272 X1000 (130-400); RBC 3.97 XMIL (4.7-6.1); RDW 12.7 % (11.5-14.5); WBC 8.08 X1000 (4.8-10.8)
[2019-12-05 08:44] LABS: BILIRUBIN URINE NEGATIVE (NEGATIVE); BLOOD URINE NEGATIVE (NEGATIVE); COLOR YELLOW; GLUCOSE URINE NEGATIVE (NEGATIVE); KETONE URINE NEGATIVE (NEGATIVE); LEUKOCYTES URINE NEGATIVE (NEGATIVE); NITRITE URINE NEGATIVE (NEGATIVE); PH URINE 6.5; PROTEIN URINE 50 mg/dL (NEGATIVE); SP GRAVITY URINE 1.027; TURBIDITY URINE CLEAR (CLEAR); UROBILINOGEN URINE NORMAL (NORMAL)
[2019-12-05 08:46] LABS: UR EPITHELIAL CELLS <10 /HPF (<10); URINE BACTERIA NEGATIVE /HPF; URINE RBC <10 /HPF (<10); URINE WBC <10 /HPF (<10)
[2019-12-05 09:00] LABS: AGAP 9; ALB/GLOB RATIO 1.2; ALBUMIN 3.9 g/dL (3.5-5.0); ALKALINE PHOSPHATASE 116 U/L (32-122); BUN 22 mg/dL (8-22); CALCIUM 9.2 mg/dL (8.8-10.2); CHLORIDE 102 mmol/L (98-107); CK PROFILE 133 U/L (24-204); COSMO 279; CREATININE 0.8 mg/dL (0.7-1.2); ESTIMATED GFR > 60; GLUCOSE 99 mg/dL (70-104); GOT 25 U/L (10-34); GPT 13 U/L (10-44); LIPASE 32 U/L (13-60); MAGNESIUM 2.1 mg/dL (1.5-2.7); POTASSIUM 4.4 mmol/L (3.5-5.1); SODIUM 138 mmol/L (136-145); TCO2 27 mmol/L (25-35); TOTAL BILIRUBIN 0.97 mg/dL (0.20-1.00); TOTAL PROTEIN 7.2 g/dL (6.3-8.3)
[2019-12-05 09:12] LABS: INR 1.15; PROTIME 14.8 Seconds (11.0-16.0)
--- NOTE | 2019-12-05 10:36 | PROVIDER DOCUMENTATION ---
This chart was entered by Stephie Eubanks Scribe, acting as scribe for Jh Butcher MD. HPI-Musculoskeletal Pain/Inj - GENERAL Chief Complaint: Fall Stated Complaint: FALL Time Seen by Provider: 12/05/19 07:13 Source: patient - HX OF PRESENT ILLNESS-MUSKULOSKELTAL Nature of Presenting Problem: 78 y/o male is sent from [facility] with complaint of back pain after fall two days ago. The patient was recently discharged from here with diagnosis of pneumonia and multiple falls at which time he had a chest x-ray due to right rib pain and was found to have multiple rib fractures. The patient is sent back to the ED today with persistent back pain. Onset/Duration: 2 days ago Timing: still present Modifying Factors: worse with: movement Any recent injury?: Yes (fall two days ago ) Locality of Occurance: Other ([facility]) - FALL INJURY Location of Pain/Injury: reports: back Injury Associated Symptoms: reports: back/neck pain - BACK & NECK PAIN/INJURY Back/Neck Pain Location: reports: lumbar spine Context / Method of Injury: reports: fall Review of Systems - Adult - REVIEW OF SYSTEMS - ADULT Constitutional: reports: other (h/o dementia). denies: chills, fever Eyes: reports: no symptoms reported Ears, Nose, Mouth & Throat: reports: no symptoms reported Cardiovascular: reports: no symptoms reported Respiratory: reports: no symptoms reported Gastrointestinal: denies: diarrhea, nausea, vomiting Genitourinary: reports: no symptoms reported Musculoskeletal: reports: back pain. denies: joint pain, joint swelling Integumentary: reports: no symptoms reported Neurological: reports: no symptoms reported Endocrine: reports: no symptoms reported Hematologic/Lymphatic: reports: no symptoms reported Allergic/Immunologic: reports: no symptoms reported All Other Systems: Reviewed and Negative Past History - Adult - PAST MEDICAL HISTORY-ADULT Review of Records: reports: Old Records Reviewed, Nursing Assessment Review, Medications Reviewed Major Childhood Illnesses: reports: denies history Cardiovascular: reports: HTN Respiratory: reports: denies history Gastrointestinal: reports: denies history Obstetrical/Gynecological: reports: denies history Genitourinary: reports: retention, other (enlarged prostate) Musculoskeletal: reports: denies history Neurological: reports: dementia Endocrine/Immune: reports: denies history Other Conditions: reports: denies history - PRIOR SURGERIES/PROCEDURES Surgical/Procedure History: reports: appendectomy, other - IMMUNIZATION STATUS Childhood Immunizations: See Nurse Assessment Flu Vaccine: See Nurse Assessment - FAMILY HISTORY Family History: reviewed, not pertinent - SOCIAL HISTORY Smoking: other (former smoker) Substance Use: none presently/history of abuse (alcohol) Physical Exam-Injury Related - Physical Exam-Injury Related Initial Vital Signs Reviewed: Yes General Appearance: no apparent distress Head, Ears, Nose, Mouth & Throat: normocephalic/atraumatic, moist mucous membranes Respiratory: no respiratory distress, no accessory muscle use, rhonchi (scattered), other (right chest wall tenderness). negative: crepitus Cardiovascular: regular rate, rhythm Back Exam: other (low back paraspinous spasm and tenderness). negative: vertebral tenderness Integumentary: normal color, warm/dry Psych/Mental Status: other (demented and confused but appears to be baseline) Progress - PLAN OF CARE/RESULTS Progress/Plan/Lab Results: Vital Signs - 8 hr 12/05/19 07:26 12/05/19 07:28 12/05/19 07:30 Temperature 98.1 F Pulse Rate 69 Respiratory Rate 17 Blood Pressure 193/87 193/87 O2 Sat by Pulse Oximetry 97 97 12/05/19 08:24 Temperature Pulse Rate Respiratory Rate Blood Pressure O2 Sat by Pulse Oximetry 97 Laboratory Results - last 24 hr 12/05/19 12/05/19 12/05/19 08:15 08:15 08:15 WBC 8.08 RBC 3.97 L Hgb 12.1 L Hct 38.1 L MCV 96.0 MCH 30.5 MCHC 31.8 L RDW Std Deviation 12.7 Plt Count 272 MPV 9.5 Immature Gran % (Auto) 0.2 Neut % (Auto) 73.6 Lymph % (Auto) 13.2 L Rutherford % (Auto) 10.6 H Eos % (Auto) 2.0 Baso % (Auto) 0.4 Immature Gran # (Auto) 0.02 Neut # (Auto) 5.94 Lymph # (Auto) 1.07 L Rutherford # (Auto) 0.86 H Eos # (Auto) 0.16 Baso # (Auto) 0.03 PT INR Specimen Type ARTERIAL Sample Site R RADIAL pH 7.44 pCO2 37 pO2 77 HCO3 25.7 Base Excess 1.1 Oxyhemoglobin 94.6 L ABG O2 Sat (Calculated) 16.0 ABG O2 Saturation 97.6 ABG Carboxyhemoglobin 2.10 ABG Methemoglobin 1.1 Ariel Test YES A-a O2 Difference 26.0 Total Hemoglobin 12.0 Lactate 0.70 Blood Gas Modality ROOM AIR FiO2 % 21.0 Sodium 138 Potassium 4.4 Chloride 102 Carbon Dioxide 27 Anion Gap 9 BUN 22 Creatinine 0.8 Estimated GFR/1.73 m2 > 60 BUN/Creatinine Ratio 28 Glucose 99 POC Glucose Calculated Osmolality 279 Calcium 9.2 Magnesium 2.1 Total Bilirubin 0.97 AST 25 ALT 13 Alkaline Phosphatase 116 Creatine Kinase 133 Troponin T Wxv-A-Fleddlwzway Pept Total Protein 7.2 Albumin 3.9 Globulin 3.3 Albumin/Globulin Ratio 1.2 Lipase 32 Plasma Lactate Urine Source Urine Color Urine Turbidity Urine pH Ur Specific [place] Urine Protein Ur Glucose (Stick) Ur Ketones (Stick) Urine Blood Urine Nitrite Urine Bilirubin Urobilinogen Dipstick Urine Leukocytes Urine WBC (Auto) Urine RBC (Auto) U Epithel Cells (Auto) Urine Bacteria (Auto) 12/05/19 12/05/19 12/05/19 08:15 08:15 08:15 WBC RBC Hgb Hct MCV MCH MCHC RDW Std Deviation Plt Count MPV Immature Gran % (Auto) Neut % (Auto) Lymph % (Auto) Rutherford % (Auto) Eos % (Auto) Baso % (Auto) Immature Gran # (Auto) Neut # (Auto) Lymph # (Auto) Rutherford # (Auto) Eos # (Auto) Baso # (Auto) PT 14.8 INR 1.15 Specimen Type Sample Site pH pCO2 pO2 HCO3 Base Excess Oxyhemoglobin ABG O2 Sat (Calculated) ABG O2 Saturation ABG Carboxyhemoglobin ABG Methemoglobin Ariel Test A-a O2 Difference Total Hemoglobin Lactate Blood Gas Modality FiO2 % Sodium Potassium Chloride Carbon Dioxide Anion Gap BUN Creatinine Estimated GFR/1.73 m2 BUN/Creatinine Ratio Glucose POC Glucose Calculated Osmolality Calcium Magnesium Total Bilirubin AST ALT Alkaline Phosphatase Creatine Kinase Troponin T Oca-U-Lqdzviobwae Pept 4921 H Total Protein Albumin Globulin Albumin/Globulin Ratio Lipase Plasma Lactate 0.8 Urine Source Urine Color Urine Turbidity Urine pH Ur Specific [place] Urine Protein Ur Glucose (Stick) Ur Ketones (Stick) Urine Blood Urine Nitrite Urine Bilirubin Urobilinogen Dipstick Urine Leukocytes Urine WBC (Auto) Urine RBC (Auto) U Epithel Cells (Auto) Urine Bacteria (Auto) 12/05/19 12/05/19 12/05/19 08:15 08:15 08:42 WBC RBC Hgb Hct MCV MCH MCHC RDW Std Deviation Plt Count MPV Immature Gran % (Auto) Neut % (Auto) Lymph % (Auto) Rutherford % (Auto) Eos % (Auto) Baso % (Auto) Immature Gran # (Auto) Neut # (Auto) Lymph # (Auto) Rutherford # (Auto) Eos # (Auto) Baso # (Auto) PT INR Specimen Type Sample Site pH pCO2 pO2 HCO3 Base Excess Oxyhemoglobin ABG O2 Sat (Calculated) ABG O2 Saturation ABG Carboxyhemoglobin ABG Methemoglobin Ariel Test A-a O2 Difference Total Hemoglobin Lactate Blood Gas Modality FiO2 % Sodium Potassium Chloride Carbon Dioxide Anion Gap BUN Creatinine Estimated GFR/1.73 m2 BUN/Creatinine Ratio Glucose POC Glucose 197 H Calculated Osmolality Calcium Magnesium Total Bilirubin AST ALT Alkaline Phosphatase Creatine Kinase Troponin T < 0.010 Pet-U-Glnayaaqoxn Pept Total Protein Albumin Globulin Albumin/Globulin Ratio Lipase Plasma Lactate Urine Source CATH Urine Color YELLOW Urine Turbidity CLEAR Urine pH 6.5 Ur Specific [place] 1.027 Urine Protein 50 A Ur Glucose (Stick) NEGATIVE Ur Ketones (Stick) NEGATIVE Urine Blood NEGATIVE Urine Nitrite NEGATIVE Urine Bilirubin NEGATIVE Urobilinogen Dipstick NORMAL Urine Leukocytes NEGATIVE Urine WBC (Auto) <10 Urine RBC (Auto) <10 U Epithel Cells (Auto) <10 Urine Bacteria (Auto) NEGATIVE Orders Category Date Time Status Finger Stick Blood Sugar (ED) DIRECTED Care 12/05/19 07:19 Active Nursing- Obtain EKG once Care 12/05/19 07:19 Active Saline Loc NOW Care 12/05/19 07:19 Active CHEST-2 VIEWS [RAD] Stat Exams 12/05/19 07:[address] HEAD/C-SPINE W/O CONTRAST [CT] Stat Exams 12/05/19 07:[address] T-SPINE/L-SPINE W/O CON [CT] Stat Exams 12/05/19 07:21 Completed ABG [RESP] Routine Lab 12/05/19 08:15 Completed BLOOD CULTURE [BLDCUL] Stat Lab 12/05/19 08:15 Received CBC WITH ELECTRONIC DIFF [HEME] Stat Lab 12/05/19 08:15 Completed CK PROFILE [SP CHEM] Stat Lab 12/05/19 08:15 Completed COMPREHENSIVE METABOLIC PANEL [CHEM] Stat Lab 12/05/19 08:15 Completed LACTATE, PLASMA [CHEM] Stat Lab 12/05/19 08:15 Completed LIPASE [CHEM] Stat Lab 12/05/19 08:15 Completed MAGNESIUM [CHEM] Stat Lab 12/05/19 08:15 Completed PRO B-NATRIURETIC PEPTIDE Stat Lab 12/05/19 08:15 Completed PROTIME WITH INR [COAG] Stat Lab 12/05/19 08:15 Completed TROPONIN T Stat Lab 12/05/19 08:15 Completed URINALYSIS W/POSS RFLX CULT [URINALYSIS] Stat Lab 12/05/19 08:15 Completed 0.9% Sodium Chloride Inj [Ns] 1,000 ml Med 12/05/19 07:22 Discontinued IV 999 mls/hr Morphine Med 12/05/19 07:22 Discontinued 2 mg IV NOW ONE Ondansetron [Zofran] Med 12/05/19 07:22 Discontinued 4 mg IV NOW ONE EKG [EKG] Stat Ther 12/05/19 07:19 Ordered Result Diagrams: 12/05/19 08:15 12/05/19 08:15 - REASSESSMENT Reassessment #1 Time Reassessed: 10:33 Status: improving (better with IV morphine. Will need admission for pain control/pulmonary toilet. Old chart reviewed from last admission, d/c on 11/29) - EKG 1 Time of EKG reading by physician:: 09:17 EKG Read and Signed by:: Jh Butcher EKG Interpretation (*Must complete 3 of following elements*): Abnormal ST Wave: depressed (nonspecific) Comments: frequent PACs, LVH - CONSULTS/PCP/HOSPITALIST Notification #1 *Consult/PCP/Hospitalist*: Hospitalist Time Discussed: 10:32 Reason/Comments: thoracic spine FX Consult Disposition: Admit Departure - Departure Date of Disposition Decision: 12/05/19 Time of Disposition Decision: 10:34 DIAGNOSIS: Multiple fractures of ribs, right side, initial encounter for closed fracture, Hemothorax on right Compression fracture of T12 vertebra Qualifiers: Encounter type: initial encounter Qualified Code(s): S22.080A - Wedge compr ession fracture of T11-T12 vertebra, initial encounter for closed fracture Compression fracture of L1 lumbar vertebra Qualifiers: Encounter type: initial encounter Qualified Code(s): S32.010A - Wedge compression fracture of first lumbar vertebra, initial encounter for closed fracture Fall at [facility] Qualifiers: Encounter type: initial encounter Qualified Code(s): W19.XXXA - Unspecified fall, initial encounter; Y92.129 - Unspecified place in [facility] as the place of occurrence of the external cause Disposition: ADMITTED INPATIENT 09 Certified Medical Emergency: Emergent Condition: Stable Referrals and Follow-Ups: Brianne Chinchilla MD [Primary Care Provider] - - Critical Care Note This patient required my direct & personal management of CC.: No Attestation - Physician/ MILAGRO Attestation Patient care was provided by Advanced Practice Provider:: No The physician spent face to face time with patient:: Yes Advanced Practice Provider documentation review:: Supervising physician onsite and consulted in the evaluation and care of this patient. The physician did have a face to face encounter with the patient. This chart was documented by the indicated scribe, (Stephie Eubanks, Scribe) and accurately reflects the services I performed and decisions made by me, Jh Butcher MD, as attested by the provider's signature.
[2019-12-05] MEDS ORDERED: MORPHINE IV PRN (11:09)
[2019-12-05] MEDS ORDERED: TYLENOL PO PRN (11:09)
[2019-12-05] MEDS ORDERED: ZOFRAN IV PRN (11:09)
[2019-12-05] MEDS ORDERED: ROCEPHIN IM SCH (12:15)
[2019-12-05] MEDS ORDERED: XYLOCAINE-MPF 1% INJ PRN (12:37)
--- NOTE | 2019-12-05 12:46 | HISTORY AND PHYSICAL ---
PRIMARY CARE PROVIDER: Dr. Chinchilla. CHIEF COMPLAINT: Right rib pain, lower back pain. HISTORY OF PRESENT ILLNESS: Mr. Ezra Watkins is a 78-year-old male who was most recently admitted and treated for the flu and pneumonia. He was discharged to [facility], where he has been receiving physical therapy. According to the daughter, who is at the bedside, who is also a speech therapist at [facility], she states that he had experienced a fall on night, and then on Friday, he started having complaints of lower back pain, and yesterday when he had his clothing off, his daughter noticed he had a right hip that was bruised, and that he was holding his right chest in pain. He presents here with these complaints, was found to have rib fractures on the right from #4, and then 6 through 10, along with a large right hemothorax. He also had a T12 and L1 compression fracture of the spine, so we will treat him medically with pain medication. Will also consult Orthopedics and General Surgery. PAST MEDICAL HISTORY: 1. Dementia with frequent falls. 2. Hypertension. 3. Enlarged prostate. 4. Questionable congestive heart failure. He had an echo that was normal, ejection fraction 65%, but had left ventricular hypertrophy and pulmonary artery pressure of 46 mmHg, and this was on an echocardiogram that was performed on 11/25/2019, just this past month. PAST SURGICAL HISTORY: 1. On a previous H and P, it says appendectomy, but him and his daughter both deny that he has ever had an appendectomy. 2. Right hand tendon repair. 3. Bilateral cataracts. SOCIAL HISTORY: Quit smoking in his 40s. Apparently, he did abuse alcohol, and was actually admitted for alcohol abuse and withdrawal in 07/2019. He has not had any alcohol since then. He has been living in [facility], but for the past week or so, he has been at [facility]. FAMILY HISTORY: Mother had breast cancer. Father had stroke. ALLERGIES: Daughter said that Omnicef gave him a rash around his eyes. HOME MEDICATIONS: 1. Acetaminophen 650 mg p.o. p.r.n. every 4 hours. 2. Aspirin 81 mg p.o. daily. 3. Centrum Silver 1 tablet p.o. daily. 4. CoQ10 one capsule p.o. daily. 5. Cozaar 100 mg p.o. daily. 6. Fish oil 1200 mg p.o. daily. 7. Flomax 0.4 mg p.o. twice daily. 8. MiraLAX daily. 9. Potassium 40 mEq p.o. daily. 10. Magnesium oxide 400 mg p.o. daily. 11. Finasteride 5 mg p.o. daily. 12. Rocephin 1 gram IM daily. That is supposed to be ending on 12/11/2019, so we will continue that as an IV. 13. Sertraline 100 mg p.o. daily. 14. Atenolol 50 mg p.o. daily. 15. Vitamin B12, 1000 mcg sublingual daily. 16. Vitamin C 500 mg p.o. daily. 17. Vitamin D3, 5000 units p.o. daily. 18. Azithromycin 500 mg p.o. daily for a total of 7 days until 12/09/2019, just a couple more days left of that. REVIEW OF SYSTEMS: All are negative, except for those mentioned above in the HPI. PHYSICAL EXAMINATION: VITAL SIGNS: Temperature 98.1 degrees, heart rate 69, respiratory rate 17, blood pressure 168/90, sat 97% on room air. GENERAL: Mr. Ezra Watkins is a 78-year-old, male. He is in no acute distress. He is not agitated at this time. He is currently being nonverbal, not really talking to me or answering questions, so information was obtained through the daughter. This is likely secondary to his advanced dementia. HEENT: Atraumatic, normocephalic. Pupils equal, round, reactive to light. Extraocular movements intact. Mucous membranes are dry. NECK: Trachea midline. CARDIOVASCULAR: S1, S2. Regular rate and rhythm. No rubs, gallops, murmurs. No lower extremity edema. There are +2 dorsalis and radial pulses. Negative for JVD or carotid bruits. PULMONARY: Clear to auscultation. Bilateral breath sounds. No accessory muscle use or work of breathing noted. GASTROINTESTINAL: Soft, nontender, nondistended. Positive bowel sounds x4. EXTREMITIES: Decreased range of motion of all extremities. Decreased strength of all extremities, probably about a 4/5. NEUROLOGIC: Oriented to name. Really otherwise no conversation effort was made by him. SKIN: Warm, dry, intact. Bruising of the right hip noted. LABORATORY DATA: White blood cells 8000, hemoglobin 12, hematocrit 38, platelet count 272,000. INR is 1.15. PH 7.44, pCO2 of 37, PO2 of 77, bicarb 25.7, base excess 1.1, saturation 94%, lactate 0.7 (this is on room air). Sodium 138, potassium 4.4, BUN 22, creatinine 0.8, glucose 99, calcium 9.2. Magnesium 2.1. Bilirubin 0.97, AST 25, ALT 13. CK 133. Troponin less than 0.01. ProBNP 4921. Albumin 3.9. Lactate 0.8. Urinalysis 50 protein. IMAGING: Chest x-ray: Right rib fractures. Head and cervical spine CT: No acute changes. There is some degenerative disk disease. Thoracic lumbar spine compression fractures of T12 and L1, along with rib fractures #4, and then 6 through 10, along with a large right hemothorax. It also shows constipation. ASSESSMENT AND PLAN: 1. Frequent falls. He will need physical therapy. 2. Traumatic right rib fractures, #4, and 6 through 10, along with a right hemothorax that is large. General Surgery has been consulted. Hemoglobin and hematocrit are currently 12 and 38, which are at his baseline. He is not in any respiratory distress at this time. Morphine low-dose is being used for pain control. 3. Traumatic T12 and L1 compression fracture. Orthopedic Surgery is consulted, and pain control. Will do physical therapy. Maybe could use a brace. 4. Dementia. Reviewing his home medications, I do not see any medications for the dementia. 5. Reported congestive heart failure, but his ejection fraction was preserved. He did have some left ventricular hypertrophy and pulmonary hypertension. No changes with that. ProBNP is 4921. 6. Hypertension. Continue home medications. 7. Benign prostatic hypertrophy. Continue Flomax and Proscar. 8. Recent treatment for flu-induced pneumonia. Will continue the Rocephin 1 gram intramuscular until 12/11/2019, and will continue the oral azithromycin until the night. 9. Deep venous thrombosis prophylaxis. Sequential compression devices. 10. History of alcohol abuse, but has been sober since 07/2019. Dictated by DALLAS Ramirez for Trenton Richardson MD cc: DALLAS Ramirez MD
[2019-12-05] MEDS: NS 1,000 ML IV SCH (14:41)
[2019-12-05] MEDS: HALDOL IV PRN ×2 (16:31→20:42)
[2019-12-05] MEDS ORDERED: LIDODERM TOP SCH (17:00)
[2019-12-05] MEDS: ROCEPHIN 1 GM in NS 50 ML IV SCH (18:32)
--- NOTE | 2019-12-05 20:26 | GENERAL SURGERY CONSULTATION ---
DATE: 12/05/2019 REQUESTING PHYSICIAN: Dr. Richardson. REASON FOR CONSULTATION: Right hemothorax. HISTORY OF PRESENT ILLNESS: This is a 78-year-old male who apparently fell at [facility] where he was getting physical therapy. He recently had been discharged from the hospital with pneumonia and flu. He had back pain and chest pain and was brought to the hospital. He was found to have multiple right-sided rib fractures with a moderate right hemothorax as well as T12 and L1 compression fractures of the spine. He is a very poor historian. There is no one else available for history. PAST MEDICAL HISTORY: According to the chart, dementia, frequent falls, hypertension. PAST SURGICAL HISTORY: According to the chart, right hand tendon repair and bilateral cataract repair. HOME MEDICATIONS: According to chart review, multiple multivitamins, finasteride, magnesium, MiraLAX, Flomax, Cozaar, Centrum, aspirin, acetaminophen. ALLERGIES: Cefdinir. FAMILY HISTORY: His mother had breast cancer. Father had a stroke. SOCIAL HISTORY: He quit smoking in his 40s. He has a history of alcohol abuse. He has been living at [facility] but has been at [facility] recently. REVIEW OF SYSTEMS: Unobtainable. PHYSICAL EXAMINATION: Vital Signs: Temperature 98.5 degrees, pulse 83, respirations 19, blood pressure 151/88, O2 saturations 97%. General: Elderly, somewhat frail-appearing male who is actively trying to get out of bed and appears confused but is overall pleasant. He is nontoxic appearing. HEENT: Normocephalic, atraumatic. Extraocular muscles intact. Pupils equal, round, reactive to light. Sclerae anicteric. Moist mucous membranes. Neck: Supple. No thyromegaly. CV: Regular rate and rhythm. Respiratory: Clear bilateral breath sounds. No increased work of breathing. He does have some ecchymosis over the right lateral chest and is tender in the right side and back. GI: Soft, nondistended, nontender. No organomegaly or mass. Extremities: No clubbing, cyanosis, or edema. Skin: Warm and dry. No rash except for the ecchymoses noted above. LUNGS: White blood cell count 8, hemoglobin 12, hematocrit 38. Electrolytes reviewed and unremarkable. ABG looks normal. IMAGING: CT of the thoracic and lumbar spine as well as the chest x-ray with findings as noted above. ASSESSMENT AND PLAN: A 38-year-old male with recent fall and dementia. He has multiple right- sided rib fractures and hemothorax as well as T12 compression fracture as well as an L1 compression fracture. He does not appear to be any respiratory distress. I would not recommend a chest tube at this time. We may get a chest CT tomorrow to further evaluate for the hemothorax and whether tube drainage is needed. I would keep him admitted under close observation for his dementia and trying to get out of bed as well as development of pulmonary contusion or worsening hemothorax. cc: Arnold Portillo MD
[2019-12-05] MEDS: FLOMAX PO SCH (20:42)
--- NOTE | 2019-12-05 21:33 | HISTORY AND PHYSICAL ---
ADDENDUM: I agree with most components of history, physical, assessment, and plan mentioned in the nurse practitioner's note. This is an addendum to it. In brief, Mr. Watkins is 78 years old man with a past medical history of essential hypertension, gradually progressive dementia, recently diagnosed right lower lobe pneumonia with influenza in October 2019, recurrent falls, who was in the hospital and was discharged to rehab on 11/29/2019 when he was treated for pneumonia, comes in with another episode of fall. History was obtained from the records as well as from the daughter at bedside. The patient was noted to have some memory impairment about 1 year ago. He has had history of chronic alcoholism, which he eventually stopped in July 2019. He has been living in [place] since almost last 1 year. Since then, the daughter has noticed memory lapses and some cognitive impairment, which has been progressively getting worse, though, the patient was living independently in an assisted living facility until a few weeks ago. About 3 weeks ago, he started having recurrent falls and he was diagnosed with influenza about 2 weeks ago and he also developed pneumonia after that for which he was treated and was discharged to rehab on antibiotics. However, yesterday, the daughter noticed a large bruise over his right flank, so he was sent to the emergency room. In the emergency room, he was hemodynamically stable. He was found to have multiple rib fractures affecting 4th, 6th to 10th rib on the right side, right-sided hemo thorax, and compression fracture of T12-L1, so the hospitalist team was consulted for further management. SUBJECTIVE: The patient is confused. He is alert, but he babbles irrelevantly and does not engage in the encounter meaningfully. He was trying to come out of bed for which haloperidol had to be given. VITALS: Temperature 98.5 degrees, pulse 83, respiratory rate 19, blood pressure 150/80, saturating 97% room air. PHYSICAL EXAMINATION: Not in acute distress. MOUTH: Oral cavity is moist. LUNGS: Air entry bilaterally equal. No wheeze, rhonchi, crackles. CARDIOVASCULAR: S1, S2 normal. No murmur or gallop. She has a large hematoma affecting right- sided hemithorax. ABDOMEN: Soft, nontender. EXTREMITIES: No lower extremity edema. NEUROLOGIC: Examination is significantly limited as the patient does not comply. However, he is moving all extremities spontaneously and trying to come out of bed. He does not have any obvious facial droop. LABS: Suggestive of no leukocytosis, normocytic anemia, normal platelet count, normal coagulation, normal ABG, normal electrolytes. Microbiology, no blood cultures have been collected. IMAGING: Chest x-ray had right-sided rib fracture. Head and cervical spine CT did not have any evidence of acute intracranial disease. Chronic microvascular changes and atrophy, degenerative changes in the cervical spine without evidence of acute bony abnormality. Thoracic and lumbar spine CT had compression fracture of T12 and L1. Multiple right rib fractures, right hemothorax, large right renal or pararenal cyst and constipation. ASSESSMENT AND PLAN: 1. Recurrent falls. This could likely be in the setting of gradually progressive dementia. Continue vitamin D supplementation. The patient would likely need a lot of assistance for all of his activities of daily living in future. Further disposition discussion would be held with daughter as per his clinical course. 2. Traumatic multiple right rib fracture with right-sided hemothorax. He does not have any evidence of respiratory compromise at the moment. I am holding his aspirin and monitoring him inside the hospital for the next 24 to 48 hours. Continue low-dose morphine and topical lidocaine for pain control. 3. Dementia. He prior has had history of alcohol abuse and the daughter had noticed gradually progressive memory impairment since last 1 year. Daughter was requesting an MRI to be done to look if he had any strokes. Currently, on my examination, there is no focality and I explained to the daughter that considering the noise of an MRI and the patient's current agitation, he may not lie down flat and can get claustrophobic. So, we would hold off and defer it to outpatient open MRI if possible. 4. Reported congestive heart failure with preserved ejection fraction, left ventricle hypertrophy and pulmonary hypertension with elevated proBNP. He is not in acute distress. I will continue to monitor him. 5. Others. Continue home atenolol, losartan for history of hypertension, tamsulosin for history of benign prostatic hypertrophy along with finasteride. 6. Disposition. Monitor patient inside the hospital. Plan of care discussed with the patient and the patient's daughter. All of her questions have been answered. cc: Trenton Richardson MD
[2019-12-06] MEDS: HALDOL IV PRN ×2 (03:27→18:57)
[2019-12-06] MEDS: NORCO-7.5 PO PRN ×2 (05:44→17:20)
[2019-12-06] MEDS: NS 1,000 ML IV SCH ×2 (05:45→18:06)
--- NOTE | 2019-12-06 07:10 | EKG Report ---
Test Performed on : 12/05/2019 08:37:14 AM Test Reason : fall Blood Pressure : / mmHG Vent. Rate : 070 BPM Atrial Rate : 070 BPM P-R Int : 190 ms QRS Dur : 086 ms QT Int : 424 ms P-R-T Axes : 069 -18 031 degrees QTc Int : 457 ms Sinus rhythm. with premature atrial complexes. Minimal voltage criteria for LVH, may be normal variant Borderline ECG When compared with ECG of 05-DEC-2019 08:36, (Unconfirmed) Sinus rhythm. has replaced Atrial fibrillation. Unconfirmed Result
[2019-12-06 07:41] LABS: INR 1.19; PROTIME 15.3 Seconds (11.0-16.0)
[2019-12-06 07:42] LABS: BASO# 0.02 X1000 (0.0-0.2); BASO% 0.3 % (0.0-0.8); EOS# 0.08 X1000 (0.0-0.7); EOS% 1.2 % (0.0-10.0); HEMATOCRIT 34.2 % (42.0-52.0); HEMOGLOBIN 11.1 g/dL (14.0-18.0); IMM GRAN# 0.02 X1000 (0.0-0.04); IMM GRAN% 0.3 % (0.0-0.5); MCH 31.2 PG (27-31); MCHC 32.5 g/dL (33-37); MCV 96.1 FL (81-99); MONO# 0.96 X1000 (0.11-0.59); MONO% 14.4 % (1.7-9.3); MPV 9.6 FL (7.4-10.4); NEUT% 71.8 % (42.2-75.2); PLT 280 X1000 (130-400); PTT 38.6 Seconds (22.3-41.8); RBC 3.56 XMIL (4.7-6.1); RDW 12.7 % (11.5-14.5); WBC 6.68 X1000 (4.8-10.8)
[2019-12-06 08:22] LABS: AGAP 10; ALBUMIN 2.9 g/dL (3.5-5.0); ALKALINE PHOSPHATASE 93 U/L (32-122); BUN 18 mg/dL (8-22); CALCIUM 8.5 mg/dL (8.8-10.2); CHLORIDE 108 mmol/L (98-107); COSMO 285; CREATININE 0.8 mg/dL (0.7-1.2); ESTIMATED GFR > 60; GLUCOSE 100 mg/dL (70-104); GOT 18 U/L (10-34); GPT 10 U/L (10-44); MAGNESIUM 1.8 mg/dL (1.5-2.7); POTASSIUM 3.5 mmol/L (3.5-5.1); SODIUM 142 mmol/L (136-145); TCO2 24 mmol/L (25-35); TOTAL BILIRUBIN 0.57 mg/dL (0.20-1.00); TOTAL PROTEIN 5.9 g/dL (6.3-8.3)
[2019-12-06] MEDS ORDERED: VITAMIN B-12 PO SCH (09:00)
[2019-12-06] MEDS ORDERED: CENTRUM SILVER PO SCH (09:00)
[2019-12-06] MEDS ORDERED: VITAMIN C PO SCH (09:00)
[2019-12-06] MEDS ORDERED: ASPIRIN PO SCH (09:00)
[2019-12-06] MEDS ORDERED: COENZYME Q10 PO SCH (09:00)
[2019-12-06] MEDS ORDERED: FISH OIL CONCENTRATE PO SCH (09:00)
[2019-12-06] MEDS: ZITHROMAX PO SCH (10:08)
[2019-12-06] MEDS: FLOMAX PO SCH ×2 (10:09→21:43)
[2019-12-06] MEDS: COZAAR PO SCH (10:09)
[2019-12-06] MEDS: KLOR-CON PO SCH (10:09)
[2019-12-06] MEDS: ZOLOFT PO SCH (10:09)
[2019-12-06] MEDS: TENORMIN PO SCH (10:10)
[2019-12-06] MEDS: MIRALAX PO SCH (10:10)
[2019-12-06] MEDS: MAG-OX PO SCH (10:10)
[2019-12-06] MEDS: PROSCAR PO SCH (10:10)
[2019-12-06] MEDS: VITAMIN D PO SCH (10:10)
--- NOTE | 2019-12-06 10:39 | Diag Imaging Result Doc PS360 ---
EXAM: CT THORAX W/WO CONTRAST INDICATION: right hemothorax TECHNIQUE: This exam was performed using automated exposure control, adjustment of mA or kV according to patient size, and/or use of iterative reconstruction technique. COMPARISON: None. FINDINGS: There are fractures of the posterior aspect of the sixth through the 10th ribs and likely subtle nondisplaced fractures involving the posterior lateral aspect of the fourth and fifth ribs on the right. There are nondisplaced fractures involving the transverse processes of the seventh, eighth, ninth ribs on the right. There are compression fractures involving T12 and L1 that are stable as compared to a recent radiograph of the T-spine and L-spine dated 12/05/2019. There is a moderate-sized right pleural fluid collection that probably has some blood layering in the posterior inferior portion. There is adjacent right lower lobe atelectasis. No active arterial contrast extravasation is appreciated on this study. Otherwise, the lungs are clear. There is no mediastinal fluid collection. There is no evidence of thoracic great vessel injury. There is an incidental 4.0 x 2.5 cm left thyroid lobe heterogeneous nodule that is indeterminate. Consider nonemergent follow-up with ultrasound. IMPRESSION: 1.Multiple right rib fractures, right spinous process fractures, and compression fractures at T12 and L1. 2.Moderate-sized right pleural fluid collection with adjacent atelectasis that is probably serosanguineous. No active contrast extravasation can be identified, however. 3.Other incidental/nonacute findings detailed above. Electronically signed by Kennedy Quezada 12/06/2019 10:36 AM
[2019-12-06] MEDS: LIDODERM TOP SCH (16:59)
[2019-12-06] MEDS: ROCEPHIN 1 GM in NS 50 ML IV SCH (16:59)
--- NOTE | 2019-12-06 18:14 | PROGRESS NOTE ---
DATE: 12/06/2019 SUBJECTIVE: Today, Mr. Watkins referred to be doing fair. Daughter was at the bedside who happens to be a physical therapist in [facility] where the patient was. OBJECTIVE: Vital signs: Blood pressure is 159/81, pulse of 60, respirations 16, temperature is 99 degrees. General: Mr. Watkins is a 78-year-old elderly gentleman. He is in bed. No distress. Mucosa is pink, slightly dry. Anicteric. Acyanotic. Neck: Supple. Chest: Air entry is bilaterally reduced. No crackles. Cardiovascular: Regular rate and rhythm. Abdomen: Soft, nontender. Bowel sounds present. No hepatosplenomegaly. Extremities: No pedal edema. Central Nervous System: Patient is drowsy but easily arousable. He is oriented to person and to place. Disoriented to time. He was not able to give me the name of his daughter who was at the bedside. He is however, able to move all extremities. He denies any pain. LABORATORY DATA: Has been reviewed CBC shows mild normocytic anemia. Chemistry is unremarkable. CT scan of the chest shows multiple rib fractures on the right, right spinal process fractures. There is a compression fracture of T12-L1. There is a moderate-sized right pleural collection ASSESSMENT: 1. Status post multiple falls. 2. Multiple right rib fractures. 3. Right hemothorax secondary to rib fractures. 4. Traumatic T12-L1 compression fracture. Physical therapy is on board. We will order braces. The patient does not have any motor deficit in the lower extremities. Denies any urinary incontinence. Denies any fecal incontinence. 5. Dementia. 6. Clinical volume depletion. 7. Recently treated for influenza with pneumonia. 8. Hypertension. 9. A left thyroid intermediate nodule measuring 4 x 2.5. We will get a TSH, free T4 to make sure it is not a functioning nodule. If it is non functioning, the patient will be advised to follow up with Endocrine to evaluate the need for further testing to rule out thyroid malignancy. cc: Severo Tran MD [facility]
--- NOTE | 2019-12-06 19:56 | ORTHOPAEDICS CONSULTATION ---
DATE: 12/06/2019 PRIMARY CARE PROVIDER: Brianne Chinchilla MD CHIEF COMPLAINT: Lower back pain. HISTORY OF PRESENT ILLNESS: Mr. Ezra Watkins is a 78-year-old male who was recently admitted to [facility] for flu and pneumonia. He was discharged to [facility] where he was participating in physical therapy. On night, he experienced a witnessed fall at the rehab. On Friday morning, he started complaining of lower back pain and right- sided chest pain. His daughter noticed bruising to the right side as well. He was not having shortness of breath, dizziness, headaches, nausea or vomiting. Because of the fall and complaints of pain, the daughter brought him to the [facility]. He was found to have several rib fractures on the right side, along with a right hemothorax. He was also found to have a T12 and L1 compression fracture. He was admitted for further treatment. Orthopedics was consulted for the T12 and L1 compression fracture. General Surgery was consulted for the rib fractures and hemothorax. PAST MEDICAL HISTORY: 1. Dementia. 2. Frequent falls. 3. Primary essential hypertension. 4. Enlarged prostate. 5. Possible congestive heart failure. PAST SURGICAL HISTORY: 1. Appendectomy. 2. Right hand tendon repair. 3. Bilateral cataracts. SOCIAL HISTORY: Past smoker, but quit in his 40s. Recent alcohol abuse. Apparently, he has not had any alcohol since July 2019. He had been living at [facility], but has recently been in [facility] following a flu and pneumonia hospital stay. FAMILY HISTORY: Noncontributory. ALLERGIES: Omnicef. HOME MEDICATIONS: 1. Acetaminophen 650 mg p.o. as needed every 4 hours. 2. Aspirin 81 mg p.o. daily. 3. Centrum Silver 1 tablet p.o. daily. 4. CoQ10 1 capsule p.o. daily. 5. Cozaar 100 mg p.o. daily. 6. Fish oil 1200 mg p.o. daily. 7. Flomax 0.4 mg p.o. twice daily. 8. MiraLAX daily. 9. Potassium 40 mEq p.o. daily. 10. Mag-Ox 400 mg p.o. daily. 11. Rocephin 1 gram IM daily. This is supposed to end on 12/11/2019. 12. Atenolol 50 mg p.o. daily. 13. Vitamin B 1000 mcg sublingual daily. 14. Azithromycin 500 mg p.o. daily for a total of 7 days before it ends on 12/09/2019. REVIEW OF SYSTEMS: A 10-point review of systems was completed and negative except what is mentioned above in the HPI. PHYSICAL EXAMINATION: Vital Signs: Temperature is 97.8 degrees, pulse 83, respirations 16, blood pressure 157/94, he is 98% on room air. General: This is a 78-year-old male in no acute distress. HEENT: Head is atraumatic, normocephalic. Pupils are equal, round, reactive to light. Cardiovascular: Regular rate and rhythm. Pulmonary: Breathing is even unlabored with equal chest rise. Abdomen: Appears nondistended. Extremities: He is able to move all extremities well. He has good sensation to the lower extremities. He denies any numbness. He is able to dorsiflex and plantar flex at the ankles. He is able move all the toes. He has a capillary refill of less than 2 seconds. He has a 2+ pedal pulse bilaterally. He has no significant edema. He is able to move the arms well. His hand intrinsics are intact. He has no tenderness to palpation in any extremities. He does have some tenderness to palpation over the T11, T12, and L1 vertebrae. Neurological: He is alert and is answering some questions. He does babble a little bit. He is not oriented to place or time. He is oriented to person. IMAGING: A lumbar and thoracic spine CT reviewed and interpreted by Dr. Torres does show compression fractures of T12 and L1. He does have multiple right-sided rib fractures. He does have a right sided hemothorax. ASSESSMENT: T12 and L1 compression fractures. PLAN: Mr. Zhang pain is well controlled. When I spoke with him earlier, he was not having any complaints of pain except with direct palpation. He said he has been able to sit up without much pain. He has not done any weightbearing since being admitted to the hospital. Right now, I am okay with doing physical therapy and pain management. We do want to get him up and moving as much as possible. I do not think he needs a brace based off his pain right now. If he does try to start mobilizing and has complaints of pain, we will plan on doing a TLSO back brace to help with some of that pain. He will follow up with Dr. Torres as an outpatient at [facility]. Thank you for the consult. If there are any more questions or concerns, please call Dr. Torres. Dictated by DALLAS Alexander for Edenilson Torres MD cc: DALLAS Alexander [facility]
[2019-12-07] MEDS: HALDOL IV PRN (02:40)
[2019-12-07] MEDS: NORCO-7.5 PO PRN ×2 (05:21→23:06)
[2019-12-07 07:53] LABS: BASO# 0.03 X1000 (0.0-0.2); BASO% 0.4 % (0.0-0.8); EOS# 0.11 X1000 (0.0-0.7); EOS% 1.4 % (0.0-10.0); HEMOGLOBIN 10.8 g/dL (14.0-18.0); IMM GRAN# 0.02 X1000 (0.0-0.04); IMM GRAN% 0.3 % (0.0-0.5); LYMPH# 0.85 X1000 (1.2-3.4); LYMPH% 10.9 % (20.5-51.1); MCH 30.8 PG (27-31); MCHC 31.8 g/dL (33-37); MCV 96.9 FL (81-99); MONO# 0.92 X1000 (0.11-0.59); MONO% 11.8 % (1.7-9.3); MPV 9.6 FL (7.4-10.4); NEUT# 5.86 X1000 (1.4-6.5); NEUT% 75.2 % (42.2-75.2); PLT 295 X1000 (130-400); RBC 3.51 XMIL (4.7-6.1); RDW 12.9 % (11.5-14.5); WBC 7.79 X1000 (4.8-10.8)
[2019-12-07 08:27] LABS: AGAP 14; ALKALINE PHOSPHATASE 104 U/L (32-122); BUN 20 mg/dL (8-22); CALCIUM 8.8 mg/dL (8.8-10.2); CHLORIDE 107 mmol/L (98-107); COSMO 289; CREATININE 0.8 mg/dL (0.7-1.2); ESTIMATED GFR > 60; GLUCOSE 95 mg/dL (70-104); GOT 22 U/L (10-34); GPT 10 U/L (10-44); POTASSIUM 4.1 mmol/L (3.5-5.1); SODIUM 144 mmol/L (136-145); TCO2 23 mmol/L (25-35); TOTAL BILIRUBIN 0.61 mg/dL (0.20-1.00); TOTAL PROTEIN 6.1 g/dL (6.3-8.3)
[2019-12-07 10:03] LABS: FREE T4 1.85 ng/dL (0.93-1.70); TSH 0.26 uIUmL (0.27-4.20)
--- NOTE | 2019-12-07 13:16 | Diag Imaging Result Doc PS360 ---
EXAM: MRI LUMBAR SPINE W/O CONTRAST 12/07/2019 HISTORY: T12-L1 Burst/Compression Fx TECHNIQUE: Sagittal T1-T2 and STIR, axial T1 and T2. COMMENT: There is bone marrow edema in the upper portions of the T12 and L1 vertebral bodies and also in the upper portion of L5. This is consistent with acute compression fractures. These abnormalities were also demonstrated on CT on 12/05/2019. At the T11-12 level there is no evidence of spinal or foraminal stenosis. There is a very large right renal cyst which was also seen on the previous CT exam. At the T12-L1 level, there is no evidence of spinal or foraminal stenosis. At L1-2 there is disc bulge producing a mild degree of spinal stenosis. The foramina appear to be patent. At L2-3 there is ligamentum flavum hypertrophy and facet arthropathy with a mild degree of spinal stenosis. At L3-4 there is some question of bilateral foraminal stenosis no significant spinal stenosis. At L4-5 there is no evidence of spinal or foraminal stenosis. L5-S1 there is no spinal or foraminal stenosis. IMPRESSION: Acute compression fractures of T11, T12, and L1. Spinal stenosis at L1-2, L2-3 and foraminal stenosis at L3-4, not related to the acute fractures. Electronically signed by Malik Tovar 12/07/2019 1:14 PM
[2019-12-07] MEDS: MIRALAX PO SCH (14:27)
[2019-12-07] MEDS: ZITHROMAX PO SCH (14:27)
[2019-12-07] MEDS: KLOR-CON PO SCH (14:28)
[2019-12-07] MEDS: MAG-OX PO SCH (14:28)
[2019-12-07] MEDS: VITAMIN D PO SCH (14:28)
[2019-12-07] MEDS: ZOLOFT PO SCH (14:28)
[2019-12-07] MEDS: COZAAR PO SCH (14:28)
[2019-12-07] MEDS: FLOMAX PO SCH ×2 (14:29→23:07)
[2019-12-07] MEDS: PROSCAR PO SCH (14:29)
[2019-12-07] MEDS: TENORMIN PO SCH (14:29)
--- NOTE | 2019-12-07 14:44 | Diag Imaging Result Doc PS360 ---
EXAM: MRI BRAIN W/O CONTRAST 12/07/2019 HISTORY: AMS. unremarkable CT TECHNIQUE: T1 sagittal and axial, axial T2, FLAIR, DWI and coronal gradient echo. COMMENT: There are patchy areas of subcortical and periventricular white matter hyperintensity on T2. There are no previous MRI studies. There is no evidence of bleed, mass effect, or abnormal extra-axial fluid collection. There is no evidence of restricted diffusion. IMPRESSION: Chronic ischemic microvascular changes. No evidence of acute ischemia. Electronically signed by Malik Tovar 12/07/2019 2:42 PM
--- NOTE | 2019-12-07 15:34 | ORTHOPAEDICS PROGRESS NOTE ---
DATE: 12/07/2019 SUBJECTIVE: No acute events overnight. Patient is resting comfortably. He reports minimal pain in his back. OBJECTIVE: Vital Signs: Afebrile. Vital signs stable. Hematocrit is 34. Back examination of the thoracic and lumbar spine shows skin intact. No crepitus or step-offs. Patient has tenderness to palpation over his T12-L1 vertebrae. He also has tenderness around his rib cage secondary to his rib fractures. He is neurovascularly intact bilateral lower extremities. IMAGING: CT scan of the thoracic and lumbar spine were reviewed demonstrating a T12 burst fracture with L1 compression fracture. He has some mild retropulsion of his posterior vertebral body at T12 level, however, minimal compromise of the canal. Posterior elements are intact. ASSESSMENT: 78-year-old male with a T12 and L1 compression fracture. PLAN: 1. The patient appears to have extension of his T12 compression fracture into the middle column of the spine making this more of a burst type injury. Given these findings, I think we should be a little bit more aggressive with bracing of his fracture. Recommend placement of a TLSO brace. Physical Therapy can mobilize once his brace is in place. I will then get some x-rays post mobilization in the brace to ensure no further compression of the fracture fragments. 2. General surgery is managing his rib fractures. Encourage incentive spirometer and aggressive pulmonary toilet. 3. Disposition per primary team. He can follow up with me as outpatient in clinic in 2 weeks with repeat x-rays.
--- NOTE | 2019-12-07 15:47 | GENERAL SURGERY PROGRESS NOTE ---
DATE: 12/07/2019 SUBJECTIVE: The patient is resting quietly in bed. He is not very talkative today. He denies pain except when his chest is palpated. OBJECTIVE: Vital Signs: He is afebrile. Vital signs are stable. O2 saturation 97% to 98% on room air. Gastrointestinal: Soft, nontender. His right flank, back, and chest are tender to palpation. LABORATORY: White blood cell count 6.7, hemoglobin 11, hematocrit 34. Electrolytes reviewed and unremarkable. IMAGING: CT of the chest was reviewed, which shows multiple right rib fractures, a right spinous process fracture and a compression fracture of T12-L1. There is a moderate size right pleural effusion which is serosanguineous. There is no active contrast extravasation. ASSESSMENT AND PLAN: A 78-year-old male with recent fall, multiple rib fractures and spine fractures as described above. He has a right hydro hemothorax but is asymptomatic. I would not recommend any treatment at this time and would recommend physical therapy and discharge back to his residence when medically stable. There are no acute surgical plans at this time. cc: Arnold Portillo MD
[2019-12-07] MEDS: ROCEPHIN 1 GM in NS 50 ML IV SCH (16:50)
[2019-12-07] MEDS: LIDODERM TOP SCH (16:50)
--- NOTE | 2019-12-07 20:22 | PROGRESS NOTE ---
DATE: 12/07/2019 SUBJECTIVE: Today, Mr. Watkins refers to be doing fairly okay. He was most times sleeping. According to the nurse, he was very agitated last night and he got a dose of Haldol early this morning. When we saw him, he was for the most part sleeping. The ex- was at the bedside. OBJECTIVE: Blood pressure is 148/111. Pulse of 88. Respiration is 18. Temperature 98.2 degrees. The patient is saturating 98% on room air. General: Mr. Watkins is a 78-year-old, male. He is in bed. No distress. Mucosa is pink and moist. Anicteric, acyanotic. Neck: Supple. Chest: Good air entry bilaterally. No crepitations. No rhonchi. Cardiovascular: Regular rate and rhythm. No murmurs, no rubs, no gallops. Gastrointestinal: Abdomen is soft, nontender. Bowel sounds present. Extremities: No pedal edema. Central nervous system: Patient is drowsy, but is easily arousable. He moves all extremities. He obeys commands. LABORATORY DATA: CBC shows mild normocytic anemia. Chemistry is within normal range. TSH and free T4 are abnormal. IMAGING STUDIES: Lumbar spine MRI shows an acute compression fracture of T11, T12, and L1. Spinous stenosis at L1-L2, L2-L3, and foraminal stenosis at L3-L4. The patient is, however, remarkably neurovascularly intact in the lower extremities. ASSESSMENT/PLAN: 1. Status post multiple falls at home. 2. Multiple rib fractures. Surgery is on board. 3. Right hemothorax secondary to rib fractures. The patient has been evaluated by Surgery. Recommendation is to continue medical and conservative management. 4. Traumatic T12-L1 compression fracture. Braces have been ordered. An MRI of the lumbar spine has also been reviewed. There is no acute significant cord compression on the imaging, and as I said, the patient is neurovascularly intact in both lower extremities. 5. Dementia with delirium episodes. We will try to avoid any benzodiazepines for now. The patient had an MRI this morning, which only showed chronic ischemic vascular changes, but no evidence of acute ischemic event. 6. Clinical volume depletion. Improved. 7. Recently treated for influenza with pneumonia. 8. Hypertension. 9. Left thyroid nodule with function significant for hyperthyroidism. We will get a nuclear study of the thyroid to see if this is uniformly up-taking or it is a hot nodule. We will start Mr. Watkins on propranolol for now until after the nuclear test. Of note, I did call [facility] to see if I could relate the MRI report to a neurosurgeon. Unfortunately, I was told that the hospital is on diversion. The patient has been seen over here by Orthopedics and General Surgery, and we truly appreciate their help in the management. cc: MD ESME Martinez
--- NOTE | 2019-12-07 22:30 | GENERAL SURGERY PROGRESS NOTE ---
DATE: 12/07/2019 SUBJECTIVE: The patient complains of some pain on his right side as before. No new complaints. OBJECTIVE: Vital Signs: He is afebrile. Vital signs are stable. General: He is awake, alert, and oriented x3. No acute distress. Cardiovascular: Regular rate and rhythm. Respiratory: Bilateral breath sounds, slightly decreased in the right base. No increased work of breathing. ASSESSMENT/PLAN: V[age]mee[age]lolf-old male with multiple right rib fractures and hemothorax after a fall. He appears stable. I do not think he will require any acute intervention. cc: Arnold Portillo MD
[2019-12-07] MEDS: NS 1,000 ML IV SCH (23:07)
[2019-12-08] MEDS: ABILIFY PO SCH ×2 (01:42→20:40)
[2019-12-08] MEDS: NS 1,000 ML IV SCH ×2 (06:27→13:59)
[2019-12-08 06:54] LABS: BASO# 0.02 X1000 (0.0-0.2); BASO% 0.3 % (0.0-0.8); EOS% 1.4 % (0.0-10.0); HEMATOCRIT 34.1 % (42.0-52.0); HEMOGLOBIN 10.8 g/dL (14.0-18.0); IMM GRAN# 0.03 X1000 (0.0-0.04); IMM GRAN% 0.4 % (0.0-0.5); LYMPH# 1.01 X1000 (1.2-3.4); LYMPH% 13.7 % (20.5-51.1); MCH 30.9 PG (27-31); MCHC 31.7 g/dL (33-37); MCV 97.7 FL (81-99); MONO% 9.5 % (1.7-9.3); MPV 9.5 FL (7.4-10.4); NEUT# 5.49 X1000 (1.4-6.5); NEUT% 74.7 % (42.2-75.2); PLT 296 X1000 (130-400); RBC 3.49 XMIL (4.7-6.1); WBC 7.35 X1000 (4.8-10.8)
[2019-12-08 07:27] LABS: AGAP 11; ALB/GLOB RATIO 0.9; ALBUMIN 2.9 g/dL (3.5-5.0); ALKALINE PHOSPHATASE 107 U/L (32-122); BUN 21 mg/dL (8-22); CALCIUM 8.7 mg/dL (8.8-10.2); CHLORIDE 108 mmol/L (98-107); COSMO 286; CREATININE 0.9 mg/dL (0.7-1.2); ESTIMATED GFR > 60; GLUCOSE 92 mg/dL (70-104); GOT 23 U/L (10-34); GPT 11 U/L (10-44); MAGNESIUM 1.9 mg/dL (1.5-2.7); SODIUM 142 mmol/L (136-145); TCO2 23 mmol/L (25-35); TOTAL BILIRUBIN 0.56 mg/dL (0.20-1.00); TOTAL PROTEIN 6.2 g/dL (6.3-8.3)
--- NOTE | 2019-12-08 10:53 | Diag Imaging Result Doc PS360 ---
EXAM: CHEST-PORTABLE 12/08/2019 HISTORY: dyspnea TECHNIQUE: AP upright sitting chest at 1023 COMMENT: The inspiration is less optimal than on 12/05/2019. There may be increasing atelectasis in the right lower lobe. There is also fluid present laterally and in the minor fissure. IMPRESSION: Right pleural effusion. Atelectasis versus pneumonia right lower lobe. Electronically signed by Malik Tovar 12/08/2019 10:50 AM
--- NOTE | 2019-12-08 10:57 | Diag Imaging Result Doc PS360 ---
EXAM: THORACO-LUMBAR SPINE 12/08/2019 HISTORY: T12-L1 fx. Upright standing xrays in TLSO brace TECHNIQUE: AP sitting and supine thoracolumbar spine COMMENT: There is apparent loss of height of the T12 and L1 vertebral bodies which would be consistent with compression fractures. This was also demonstrated on the MRI and CT scans performed on 12/07/2019 and 12/05/2019 respectively. IMPRESSION: Compression fractures of T12 and L1. Electronically signed by Malik Tovar 12/08/2019 10:55 AM
[2019-12-08] MEDS: ZOLOFT PO SCH (11:17)
[2019-12-08] MEDS: ZITHROMAX PO SCH (11:17)
[2019-12-08] MEDS: KLOR-CON PO SCH (11:17)
[2019-12-08] MEDS: MAG-OX PO SCH (11:18)
[2019-12-08] MEDS: MIRALAX PO SCH (11:18)
[2019-12-08] MEDS: FLOMAX PO SCH ×2 (11:18→20:40)
[2019-12-08] MEDS: TENORMIN PO SCH (11:18)
[2019-12-08] MEDS: COZAAR PO SCH (11:18)
[2019-12-08] MEDS: VITAMIN D PO SCH (11:18)
[2019-12-08] MEDS: PROSCAR PO SCH (11:18)
[2019-12-08] MEDS: NORCO-7.5 PO PRN (11:29)
--- NOTE | 2019-12-08 12:56 | ORTHOPAEDICS PROGRESS NOTE ---
DATE: 12/08/2019 SUBJECTIVE: No acute events yesterday. He ambulated 25 feet with physical therapy once he was fitted with his TLSO brace. A lumbar spine MRI yesterday, as well as a brain MRI. He states pain is controlled in his back. OBJECTIVE: Vital Signs: Afebrile. Vital signs stable. Hematocrit is 34. Back Examination: Lumbar spine shows the TLSO to be off and in the chair next to him. He is laying in a reclined position. He has tenderness to palpation over his T12-L1 vertebrae. He is neurovascularly intact distally. IMAGING: The MRI of the lumbar spine demonstrating acute T12 and L1 compression fractures. His T12 injury is a 2-column injury affecting both the anterior and middle columns with small amount of retropulsion of the fragment. There is no obvious cord compression. The posterior elements and ligamentous structures are intact. ASSESSMENT: A 78-year-old male status post fall with T12 and L1 compression fractures. He has mild retropulsion of the fragment on the T12 level; however, no major canal stenosis. Posterior elements are intact. PLAN: 1. Patient can continue to be weightbearing as tolerated and ambulate with the TLSO brace on. I am okay with him coming out of the brace while lying in bed. However, when he is up mobilizing, I think he should be in the brace in order to provide support and prevent significant collapse of the fracture site. Given the fact that posterior elements are intact, it should be a stable injury. However, we want to monitor this closely. 2. PT to mobilize and work on gait training. 3. Appreciate Surgery recommendations for his rib fractures. Encourage pulmonary toilet and incentive spirometer. 4. Disposition per primary team. He will follow up with me in clinic in 2 weeks with repeat x- rays of his thoracolumbar spine. 5. We will plan on getting standing AP and lateral views of the thoracolumbar spine in the hospital while wearing his TLSO brace to have a comparison film and assess the degree of collapse with his serial x-rays in the office.
--- NOTE | 2019-12-08 15:41 | PROGRESS NOTE ---
DATE: 12/08/2019 SUBJECTIVE: This morning Mr. Watkins refers to be doing better. He was more alert and more conversational. I understand he still became quite delirious last night. OBJECTIVE: Vital signs: Blood pressure is 152/78, pulse of 89, respiration is 19, temperature 97.9 degrees. General: Mr. Watkins is a 78-year-old male. He is in bed. No distress. HEENT: Mucosa is pink and moist. Anicteric. Acyanotic. Neck: Supple. Chest: Good air entry bilaterally. There were no crepitations. No rhonchi. Cardiovascular: Regular rate and rhythm. No murmurs, no rubs, no gallops. Gastrointestinal: Abdomen is soft, nontender. Bowel sounds present. There is no hepatosplenomegaly. Extremities: No pedal edema. Distal pulses present. GIS SCIENTIST: Patient is more awake and alert, more interactive and conversational today. Able to move all extremities. He obeys commands. He is somehow quite rigid everywhere. LABORATORY DATA: CBC is reviewed. There is a mild normocytic anemia. Chemistry is completely unremarkable. MEDICATIONS: Medications have also all been reviewed. IMAGING: A chest x-ray this morning shows right pleural effusion, atelectasis versus right lower lobe pneumonia. The thoracolumbar spine continues to show compression fracture of T12 and L1. ASSESSMENT: 1. Status post mechanical fall at home resulting into multiple rib fractures and traumatic T12-L1 compression fracture. The patient has been evaluated by both Surgery and Orthopedics. 2. Right hemothorax secondary to rib fractures with possible superimposed pneumonia. Patient is on antimicrobial therapy. The surgery has evaluated the patient, for now continues to recommend conservative management and no need for chest tube placement. 3. Delirium with baseline dementia. The patient's family members have been advised. Avoid benzos and physical restrains. Will try low dose of Abilify if needed. 4. Clinical volume depletion, improved. 5. Recently treated for influenza. 6. Hypertension, controlled. 7. Clinical hyperthyroidism with a left thyroid nodule. We are pending the thyroid uptake test. Mr. Watkins continues to be on braces. A repeat x-ray this morning continues to suggest a compression fracture. He is however, neurovascularly intact in the lower extremities. He does not have any urinary or fecal incontinence. He is doing well with Physical Therapy. We are pending his thyroid studies and hopefully be able to discharge him either tomorrow or Friday. cc: Severo Tran MD MTDD
[2019-12-08] MEDS: LIDODERM TOP SCH (17:21)
[2019-12-08] MEDS: LACTULOSE PO PRN (17:21)
[2019-12-08] MEDS: ROCEPHIN 1 GM in NS 50 ML IV SCH (17:21)
[2019-12-09] MEDS: NS 1,000 ML IV SCH ×2 (04:11→05:19)
[2019-12-09 06:47] LABS: BASO# 0.03 X1000 (0.0-0.2); BASO% 0.4 % (0.0-0.8); EOS# 0.06 X1000 (0.0-0.7); EOS% 0.8 % (0.0-10.0); HEMATOCRIT 35.6 % (42.0-52.0); HEMOGLOBIN 11.2 g/dL (14.0-18.0); IMM GRAN# 0.03 X1000 (0.0-0.04); IMM GRAN% 0.4 % (0.0-0.5); LYMPH# 0.92 X1000 (1.2-3.4); LYMPH% 12.7 % (20.5-51.1); MCH 30.7 PG (27-31); MCHC 31.5 g/dL (33-37); MCV 97.5 FL (81-99); MONO# 0.77 X1000 (0.11-0.59); MONO% 10.7 % (1.7-9.3); MPV 9.3 FL (7.4-10.4); NEUT# 5.42 X1000 (1.4-6.5); PLT 317 X1000 (130-400); RBC 3.65 XMIL (4.7-6.1); RDW 13.4 % (11.5-14.5); WBC 7.23 X1000 (4.8-10.8)
[2019-12-09 07:29] LABS: AGAP 13; ALB/GLOB RATIO 0.9; ALBUMIN 3.1 g/dL (3.5-5.0); ALKALINE PHOSPHATASE 117 U/L (32-122); BUN 18 mg/dL (8-22); CALCIUM 8.8 mg/dL (8.8-10.2); CHLORIDE 108 mmol/L (98-107); COSMO 290; CREATININE 0.9 mg/dL (0.7-1.2); ESTIMATED GFR > 60; GLUCOSE 86 mg/dL (70-104); GOT 25 U/L (10-34); GPT 13 U/L (10-44); POTASSIUM 4.1 mmol/L (3.5-5.1); SODIUM 145 mmol/L (136-145); TCO2 24 mmol/L (25-35); TOTAL BILIRUBIN 0.58 mg/dL (0.20-1.00); TOTAL PROTEIN 6.5 g/dL (6.3-8.3)
[2019-12-09] MEDS: LACTULOSE PO PRN (08:51)
[2019-12-09] MEDS: VITAMIN D PO SCH (08:51)
[2019-12-09] MEDS: ZITHROMAX PO SCH (08:51)
[2019-12-09] MEDS: ZOLOFT PO SCH (08:51)
[2019-12-09] MEDS: COZAAR PO SCH (08:52)
[2019-12-09] MEDS: MIRALAX PO SCH (08:52)
[2019-12-09] MEDS: MAG-OX PO SCH (08:52)
[2019-12-09] MEDS: PROSCAR PO SCH (08:52)
[2019-12-09] MEDS: KLOR-CON PO SCH (08:52)
[2019-12-09] MEDS: FLOMAX PO SCH ×2 (08:52→22:25)
[2019-12-09] MEDS: TENORMIN PO SCH (08:52)
[2019-12-09] MEDS: NORCO-7.5 PO PRN ×2 (10:07→22:25)
--- NOTE | 2019-12-09 12:01 | Diag Imaging Result Doc PS360 ---
EXAM: KUB ABDOMEN 12/09/2019 HISTORY: SBO TECHNIQUE: KUB COMMENT: There is a large amount of formed stool in the distal descending and rectosigmoid colon. No small bowel or gastric distention is present. There is no evidence organomegaly or mass. IMPRESSION: Constipation. Electronically signed by Malik Tovar 12/09/2019 11:58 AM
[2019-12-09] MEDS ORDERED: GOLYTELY PO ONE (14:00)
[2019-12-09] MEDS ORDERED: FLEET ENEMA PR ONE (14:54)
[2019-12-09] MEDS: LIDODERM TOP SCH (18:43)
[2019-12-09] MEDS: ROCEPHIN 1 GM in NS 50 ML IV SCH (19:07)
--- NOTE | 2019-12-09 19:09 | PROGRESS NOTE ---
DATE: 12/09/2019 SUBJECTIVE: This morning, Mr. Watkins refers to be doing well. He looked more alert and conversational. The daughter and his sister were at the bedside at the time of the encounter. OBJECTIVE: Vital signs: Blood pressure is 145/96, pulse of 91, respirations 20, temperature is 98.3 degrees. The patient is saturating 99% on room air. General: Mr. Watkins is a 78-year-old, gentleman. He is in bed, in no distress. HEENT: Mucosa is pink and moist. Anicteric, acyanotic. Neck: Supple. Chest: Good air entry bilaterally. There are no crepitations, no rhonchi. Cardiovascular: Regular rate and rhythm. No murmurs, no rubs, no gallops. Gastrointestinal: Abdomen is soft, minimally distended, but nontender. Bowel sounds present. Extremities: No pedal edema. Distal pulses present. Central nervous system: Patient is awake, alert, oriented to person and to place, disoriented to time. The patient moves all extremities and obeys commands. LABORATORY AND DIAGNOSTIC DATA: 1. Hemoglobin is 11.2, platelet count of 317,000. Chemistry was also reviewed. No abnormality detected. 2. KUB this morning shows significant constipation. ASSESSMENT/PLAN: 1. Status post mechanical fall, resulting in to multiple rib fractures and a traumatic T12-L1 compression fracture. The patient has been evaluated by both Surgery and Orthopedics. He is on braces. 2. Right hemothorax secondary to rib fractures with possible superimposed pneumonia. 3. Delirium with baseline dementia. 4. Hypertension. Controlled. 5. Clinical hyperthyroidism with left thyroid nodule. Patient is pending radioiodine thyroid uptake test. 6. Severe constipation. The patient has not responded to MiraLAX or lactulose. We will get him an enema and also start him on GoLYTELY. 7. Questionable aspiration as per the daughter. A swallow evaluation was ordered; however, per the Speech Therapy documentation, the daughter really wants a modified barium swallow. Mr. Watkins is a potential discharge back to [facility] tomorrow after his thyroid scan testing and swallow evaluation. cc: Severo Tran MD
[2019-12-09] MEDS: ABILIFY PO SCH (22:25)
--- NOTE | 2019-12-10 08:44 | Diag Imaging Result Doc PS360 ---
EXAM: THYROID SCAN/UPTAKE 12/08/2019 HISTORY: hyperthyroidism TECHNIQUE: Thyroid scan and uptake, 282 uCi I-123. COMMENT: Six and 24-hour uptake is 1.6 and 2.4% respectively. There is very little if any uptake in the thyroid gland visible on the scan. This is presumably due to the fact that the iodinated contrast administered for the thoracic CT scan performed on 12/06/2019 has suppressed the gland. IMPRESSION: Nondiagnostic study due to recent administration of iodinated contrast. Advise repeating the study after at least six weeks without receiving iodinated contrast. Electronically signed by Malik Tovar 12/10/2019 8:42 AM
--- NOTE | 2019-12-10 11:23 | Diag Imaging Result Doc PS360 ---
EXAM: BA SWALLOW W/VIDEO SPEECH THER 12/10/2019 HISTORY: possible aspiration TECHNIQUE: 389 images 310 mGy, 38 seconds fluoroscopy time. COMMENT: Patient was able to swallow various consistencies of barium some with solid food without two much difficulty. There is a tendency for barium to collect in the vallecula and perform sinuses with delayed swallowing. There is some penetration of barium with thin barium in the glottis but no substantial aspiration is present. 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 IMPRESSION: 1. Delayed swallowing and generally decreased pharyngeal tone. 2. Presbyesophagus. Electronically signed by Malik Tovar 12/10/2019 11:21 AM
[2019-12-10 12:25] VITALS: BP 174/89
[2019-12-10 12:28] LABS: AGAP 13; ALB/GLOB RATIO 0.9; ALBUMIN 2.9 g/dL (3.5-5.0); ALKALINE PHOSPHATASE 129 U/L (32-122); BUN 16 mg/dL (8-22); CALCIUM 8.7 mg/dL (8.8-10.2); CHLORIDE 109 mmol/L (98-107); COSMO 288; CREATININE 0.9 mg/dL (0.7-1.2); ESTIMATED GFR > 60; GLUCOSE 102 mg/dL (70-104); GOT 25 U/L (10-34); GPT 12 U/L (10-44); MAGNESIUM 2.1 mg/dL (1.5-2.7); POTASSIUM 3.9 mmol/L (3.5-5.1); SODIUM 144 mmol/L (136-145); TCO2 22 mmol/L (25-35); TOTAL BILIRUBIN 0.63 mg/dL (0.20-1.00); TOTAL PROTEIN 6.3 g/dL (6.3-8.3)
[2019-12-10 12:39] LABS: BASO# 0.02 X1000 (0.0-0.2); BASO% 0.2 % (0.0-0.8); EOS# 0.04 X1000 (0.0-0.7); EOS% 0.4 % (0.0-10.0); HEMATOCRIT 38.9 % (42.0-52.0); HEMOGLOBIN 12.1 g/dL (14.0-18.0); LYMPH# 0.76 X1000 (1.2-3.4); LYMPH% 7.8 % (20.5-51.1); MCH 31.7 PG (27-31); MCHC 31.1 g/dL (33-37); MCV 101.8 FL (81-99); MONO# 0.95 X1000 (0.11-0.59); MONO% 9.7 % (1.7-9.3); MPV 9.5 FL (7.4-10.4); NEUT# 8.01 X1000 (1.4-6.5); NEUT% 81.9 % (42.2-75.2); PLT 298 X1000 (130-400); RBC 3.82 XMIL (4.7-6.1); RDW 13.9 % (11.5-14.5); WBC 9.78 X1000 (4.8-10.8)
[2019-12-10] MEDS: VITAMIN D PO SCH (13:10)
[2019-12-10] MEDS: PROSCAR PO SCH (13:10)
[2019-12-10] MEDS: FLOMAX PO SCH (13:10)
[2019-12-10] MEDS: ZOLOFT PO SCH (13:10)
[2019-12-10] MEDS: COZAAR PO SCH (13:10)
[2019-12-10] MEDS: TENORMIN PO SCH (13:11)
[2019-12-10] MEDS: MIRALAX PO SCH (13:11)
[2019-12-10] MEDS: MAG-OX PO SCH (13:11)
[2019-12-10] MEDS: KLOR-CON PO SCH (13:11)
[2019-12-10 13:12] LABS: FREE T4 1.56 ng/dL (0.93-1.70); TSH 0.53 uIUmL (0.27-4.20)
[2019-12-10] MEDS: NS 1,000 ML IV SCH (13:12)
--- NOTE | 2019-12-10 13:57 | DISCHARGE SUMMARY ---
ADMISSION DATE: 12/05/2019 DISCHARGE DATE: 12/09/2019 DISPOSITION: Back to [facility]. FOLLOWUP: 1. Dr. Chinchilla. 2. Dr. Torres. 3. Dr. Marley. CONSULTATION DURING THIS ADMISSION: 1. Orthopedics was consulted. Patient was seen by Dr. Torres. 2. Surgery was consulted. Patient was seen by Dr. Portillo. INVASIVE PROCEDURES DONE DURING THIS ADMISSION: None. IMAGING STUDIES OF SIGNIFICANCE: 1. A chest x-ray did show right rib fractures. 2. CT scan of the head and cervical spine showed no evidence of acute disease and no acute fractures. 3. A thoracolumbar CT show a compression fraction of T12 and L1. Right hemothorax. A large right renal cyst. Constipation. 4. A lumbar spine MRI showed an acute compression fracture of T11, T12 and L1. Spinal stenosis at L1-L2, L2-3 and a foraminal stenosis at L3-4, not related to the acute fracture. 5. MRI of the brain showed chronic ischemic microvascular changes. No evidence of acute disease. 6. A thyroid uptake was nondiagnostic due to recent iodine contrast. 7. A thoracolumbar spine repeat showed compression fractures. 8. Chest x-ray showed a right pleural effusion, atelectasis versus pneumonia. 9. A KUB showed constipation. 10. A modified swallow test showed a delay swallowing and generally decreased pharyngeal tone, presbyesophagus. No substantial aspiration present during the studies. ADMISSION DIAGNOSES: 1. Frequent falls. 2. Traumatic rib fractures. 3. Dementia. 4. Hypertension. 5. BPH. DIAGNOSES AT THE TIME OF DISCHARGE: 1. Status post mechanical fall resulting into multiple rib fractures and a traumatic T11, T12 and L1 compression fracture. The patient was evaluated by Surgery and Orthopedics. He has been recommended to be in braces. He will follow up with Orthopedics. 2. Right hemothorax secondary to rib fractures. The patient was evaluated by Surgery. Recommendation was to continue medical management. No need for chest tube placement. 3. Suspected superimposed pneumonia on the right lower lobe. The patient has been on antimicrobial therapy. He seems to be doing well. He will continue with Augmentin for another 5 more days. 4. Delirium during the hospital course with baseline dementia, improved. The patient's mentation is back to baseline. 5. Hypertension. 6. Abnormal liver tests with left thyroid node. Radioiodine uptake test was done. Unfortunately, patient has had iodinated contrast studies, so it was nondiagnostic. I have explained this to the sister who was at the bedside at the time of the discharge and has been advised to follow up with Dr. Marley who is the financial services intern in [place]. 7. Severe constipation. KUB shows some remarkable obstipation. The patient was started on bowel regimen. It has been documented that he has had 3 bowel movements this morning and 1 yesterday. 8. Presbyesophagus with delayed swallowing and generally decreased pharyngeal tone. The patient has been advised to eat small portions at a given time and observe aspiration precautions at all times. DISCHARGE MEDICATIONS: 1. Losartan 100 mg p.o. daily. 2. Atenolol 50 mg p.o. daily. 3. Finasteride 5 mg p.o. at bedtime. 4. Tamsulosin 0.4 b.i.d. 5. Sertraline 100 mg p.o. daily. 6. Vitamin C 500 p.o. daily. 7. Aspirin 81 mg p.o. daily. 8. Cholecalciferol 5000 p.o. daily. 9. [place] fish oil 1 tab daily. 10. Multivitamin. 11. MiraLAX. 12. Timnath 1 tablet every 4 hours p.r.n. 13. Amoxiclav 875 p.o. b.i.d. for 5 days. PRESENTING COMPLAINT: Rib pain, lower back pain. HISTORY OF PRESENT COMPLAINT: Mr. Watkins is a 78-year-old elderly male who was recently admitted to the hospital and discharged to [facility] for physical therapy, was found to have fallen down and started complaining of a lot of back pain and chest pain, was brought back and evaluated in the emergency room. He was found to have multiple rib fractures on the right side and a fracture to L1, T12 and T11. Mr. Watkins was admitted for further medical care. HOSPITAL COURSE: Mr. Watkins was admitted to the medical floor. Orthopedics and Surgery were consulted. He was seen by Dr. Portillo and Dr. Torres. Surgery standpoint recommended the hemothorax will reabsorb on its own and that no need for chest tube placement. The patient was seen also by Orthopedics. Dr. Torres recommended braces and to follow up with them on an outpatient basis. Mr. Watkins was also seen on multiple occasions by Physical Therapy after yesterday. During the hospital course, the daughter had multiple concerns, especially with the father swallowing abilities, so a swallow test was done which revealed that he has presbyesophagus with delay in swallowing but there was no significant aspiration during the test. The patient has been advised to eat smaller portions at the time and observe aspiration precautions at all times. Mr. Watkins was also found to have abnormal liver enzymes, which would be consistent with hyperthyroidism. He is not clinically evident of the disease process. A radioiodine uptake was done; however this was nondiagnostic because of prior iodine contrast study. He has been advised to follow up with Dr. Marley, the financial services intern in [facility], for further evaluation and proper treatment. All the discharge instructions have been discussed with him and the daughter and the sister who was at the bedside at the time of the encounter. Both voiced understanding. TIME SPENT: The time spent for discharge is 38 minutes. cc: MD Brianne Martinez MD Justin Hallock, MD MTDD
== END 2019-12-10 14:37 | DRG 199 ==
LOC: SUPCPDRO → ED 07:13 → EDIPHOLD 10:53 → SUATTDRO 10:53 → 4N 15:31
PROVIDERS: ATTEND Internal Medicine

== ENCOUNTER 2019-12-12 11:15 | Inpatient (IN) ==
[2019-12-12 13:27] LABS: BASO# 0.02 X1000 (0.0-0.2); BASO% 0.2 % (0.0-0.8); EOS# 0.09 X1000 (0.0-0.7); EOS% 0.9 % (0.0-10.0); HEMATOCRIT 37.7 % (42.0-52.0); HEMOGLOBIN 11.9 g/dL (14.0-18.0); IMM GRAN# 0.04 X1000 (0.0-0.04); IMM GRAN% 0.4 % (0.0-0.5); LYMPH# 0.73 X1000 (1.2-3.4); LYMPH% 7.7 % (20.5-51.1); MCH 30.9 PG (27-31); MCHC 31.6 g/dL (33-37); MCV 97.9 FL (81-99); MONO# 0.86 X1000 (0.11-0.59); MONO% 9.1 % (1.7-9.3); MPV 9.1 FL (7.4-10.4); NEUT# 7.74 X1000 (1.4-6.5); NEUT% 81.7 % (42.2-75.2); PLT 322 X1000 (130-400); RBC 3.85 XMIL (4.7-6.1); RDW 14.3 % (11.5-14.5); WBC 9.48 X1000 (4.8-10.8)
[2019-12-12 13:51] LABS: INR 1.16
[2019-12-12 13:52] LABS: PTT 36.8 Seconds (22.3-41.8)
[2019-12-12 14:14] LABS: AGAP 8; ALB/GLOB RATIO 0.9; ALKALINE PHOSPHATASE 197 U/L (32-122); BUN 20 mg/dL (8-22); CALCIUM 8.6 mg/dL (8.8-10.2); CHLORIDE 110 mmol/L (98-107); COSMO 292; ESTIMATED GFR > 60; GLUCOSE 103 mg/dL (70-104); GOT 30 U/L (10-34); GPT 13 U/L (10-44); POTASSIUM 3.7 mmol/L (3.5-5.1); SODIUM 145 mmol/L (136-145); TCO2 27 mmol/L (25-35); TOTAL BILIRUBIN 0.48 mg/dL (0.20-1.00); TOTAL PROTEIN 6.5 g/dL (6.3-8.3)
--- NOTE | 2019-12-12 15:40 | Diag Imaging Result Doc PS360 ---
EXAM: CT ABD/PELVIS W/IV CONT ONLY HISTORY: Hx of trauma, R flank bruising today TECHNIQUE: CT abdomen and pelvis with oral and intravenous contrast COMPARISON: None. FINDINGS: There is a moderate to large right-sided pleural effusion measuring 5.8 cm posteriorly and inferiorly in the midline. There is atelectasis to the right lower lobe. No left effusion. No hepatic or splenic laceration. Normal enhancement of the liver and spleen. Normal gallbladder, pancreas, and adrenal glands. There are several large right renal cysts. The largest measures 8.8 cm. Hypodense right renal nodule measuring 2.4 cm. No definite enhancement. No hydronephrosis. No retroperitoneal hematoma. Prominent atherosclerosis. No aortic aneurysm. Prominent stool in rectum. No bowel obstruction. The urinary bladder is distended. There are compression fractures to the T12 and L1 vertebra. There are fractures to the right eighth, ninth, 10th, and 11th ribs. IMPRESSION: 1.Right rib fractures with a moderate to large right effusion and right lower lobe atelectasis 2.Compression fractures to T12 and L1 of less than 50% 3.Fecal impaction 4.Renal cysts This exam was performed using automated exposure control, adjustment of mA or kV according to patient size, and/or use of iterative reconstruction technique. Electronically signed by Darci Bowles 12/12/2019 3:38 PM
[2019-12-12] MEDS ORDERED: DULCOLAX PR ONE (16:59)
[2019-12-12] MEDS ORDERED: NS 1,000 ML IV SCH (17:00)
[2019-12-12] MEDS ORDERED: DIPRIVAN 1% ONE (17:04)
[2019-12-12] MEDS ORDERED: TYLENOL PO PRN (17:04)
[2019-12-12] MEDS ORDERED: ZOFRAN IV PRN (17:04)
--- NOTE | 2019-12-12 17:06 | PROVIDER DOCUMENTATION ---
This chart was entered by Kavon Samaniego Scribe, acting as scribe for Joshua Bradford MD. HPI-Musculoskeletal Pain/Inj - GENERAL Chief Complaint: Rib Injury Stated Complaint: SWELLING AND PAIN FROM FALL 2 WEEKS AGO Time Seen by Provider: 12/12/19 12:16 Source: patient, family, EMS - HX OF PRESENT ILLNESS-MUSKULOSKELTAL Nature of Presenting Problem: 78 yom presents to the ed w/ rib and T-spine injury. family states " pt has fallen twice , on second fall pt broke 6 ribs and fractured T-12 down. family states " over past couple weeks had Flu and pneumonia. family states Rt sided "swelling and ema liquidly." family states pt was constipated but "moved all out now." family states pt was on Tamaflu, but stopped poss made pt dizzy and caused fall. pt was discharged on . family states pts been at [facility] on constant supervision. Quality of Pain: reports: aching Severity in ED: mild Onset/Duration: other (past couple weeks.) Timing: still present Modifying Factors: improves with: nothing Any recent injury?: Yes (2 falls ) Similar Symptoms Previously?: No Recently seen or treated by another doctor?: No - FALL INJURY Location of Pain/Injury: reports: abdomen (stated by family ,6 broken ribs from 2nd fall), back (t-12 down fractured stated by family), other (contusions RT lung stated by family) Pain Radiation: reports: no radiation Reason for Fall: reports: unknown Symptoms prior to fall:: reports: none Loss of Consciousness: unsure Injury Associated Symptoms: reports: back/neck pain (back). denies: chest pain, nausea, vomiting - BACK & NECK PAIN/INJURY Back/Neck Pain Location: reports: T-spine (t-12 down fractured stated by family) Context / Method of Injury: reports: fall Associated Symptoms: reports: denies symptoms History of Chronic Neck or Back Pain?: No - TRUNK INJURY Location of Injury(s)/Pain: reports: ribs (stated by family ,6 broken ribs from 2nd fall) Context / Method of Injury: reports: fall Associated Symptoms: reports: denies symptoms Review of Systems - Adult - REVIEW OF SYSTEMS - ADULT Constitutional: reports: no symptoms reported Eyes: reports: no symptoms reported Ears, Nose, Mouth & Throat: reports: no symptoms reported Cardiovascular: reports: no symptoms reported Respiratory: reports: no symptoms reported Gastrointestinal: reports: no symptoms reported Genitourinary: reports: no symptoms reported Musculoskeletal: reports: other (pain in back, R ribs from fracture) Integumentary: reports: see HPI Psychiatric: reports: other (confusion/dementia) Hematologic/Lymphatic: reports: no symptoms reported Allergic/Immunologic: reports: no symptoms reported Past History - Adult - PAST MEDICAL HISTORY-ADULT Review of Records: reports: Medications Reviewed Major Childhood Illnesses: reports: denies history Cardiovascular: reports: HTN Respiratory: reports: denies history Gastrointestinal: reports: denies history Obstetrical/Gynecological: reports: denies history Genitourinary: reports: retention, other (enlarged prostate) Musculoskeletal: reports: denies history Neurological: reports: dementia Endocrine/Immune: reports: denies history Other Conditions: reports: denies history - PRIOR SURGERIES/PROCEDURES Surgical/Procedure History: reports: appendectomy, other - IMMUNIZATION STATUS Childhood Immunizations: See Nurse Assessment Flu Vaccine: See Nurse Assessment - FAMILY HISTORY Family History: reviewed, not pertinent Physical Exam-Injury Related - Physical Exam-Injury Related Initial Vital Signs Reviewed: Yes General Appearance: appears well, alert, mild distress Eyes: PERRL/EOMI Respiratory: chest non-tender, lungs clear, normal breath sounds Cardiovascular: normal peripheral pulses, regular rate, rhythm Abdominal Exam: normal bowel sounds, non tender, soft Male Genitalia: deferred Rectal Exam: deferred Hemoccult Exam: deferred Back Exam: other (ecchyomtic areas Rt flank Rt buttocks) Integumentary: normal color - Glascow Coma Score Best Eye Response (Jeronimo): (2) open to pain Best Motor Response (Jeronimo): (6) obeys commands [place] Total: 8 Progress - PLAN OF CARE/RESULTS Progress/Plan/Lab Results: Vital Signs - 8 hr 12/12/19 11:30 Temperature 98.1 F Pulse Rate 80 Respiratory Rate 17 Blood Pressure 162/91 O2 Sat by Pulse Oximetry 98 Laboratory Results - last 24 hr 12/12/19 12/12/19 12/12/19 13:15 13:15 13:30 WBC 9.48 RBC 3.85 L Hgb 11.9 L Hct 37.7 L MCV 97.9 MCH 30.9 MCHC 31.6 L RDW Std Deviation 14.3 Plt Count 322 MPV 9.1 Immature Gran % (Auto) 0.4 Neut % (Auto) 81.7 H Lymph % (Auto) 7.7 L [place] % (Auto) 9.1 Eos % (Auto) 0.9 Baso % (Auto) 0.2 Immature Gran # (Auto) 0.04 Neut # (Auto) 7.74 H Lymph # (Auto) 0.73 L [place] # (Auto) 0.86 H Eos # (Auto) 0.09 Baso # (Auto) 0.02 PT 15.0 INR 1.16 PTT (Actin FS) 36.8 Sodium 145 Potassium 3.7 Chloride 110 H Carbon Dioxide 27 Anion Gap 8 BUN 20 Creatinine 1.0 Estimated GFR/1.73 m2 > 60 BUN/Creatinine Ratio 20 Glucose 103 Calculated Osmolality 292 Calcium 8.6 L Total Bilirubin 0.48 AST 30 ALT 13 Alkaline Phosphatase 197 H Total Protein 6.5 Albumin 3.0 L Globulin 3.5 Albumin/Globulin Ratio 0.9 Orders Category Date Time Status Consent for Surgery DIRECTED Care 12/12/19 16:[address] ABD/PELVIS W/IV CONT ONLY [CT] Stat Exams 12/12/19 12:19 Completed CBC WITH DIFF [HEME] Stat Lab 12/12/19 13:15 Completed COMPREHENSIVE METABOLIC PANEL [CHEM] Stat Lab 12/12/19 13:15 Completed PROTIME WITH INR [COAG] Stat Lab 12/12/19 13:30 Completed PTT [COAG] Stat Lab 12/12/19 13:30 Completed URINALYSIS [URINALYSIS] Stat Lab 12/12/19 12:19 Uncollected 0.9% Sodium Chloride Inj [Ns] 1,000 ml Med 12/12/19 17:00 Ordered IV 75 mls/hr Bisacodyl [Dulcolax] Med 12/12/19 16:59 Discontinued 10 mg RI NOW ONE Result Diagrams: 12/12/19 13:15 12/12/19 13:15 - CT/MRI 1 CT Study: Abdomen, Pelvis Impression: See EMR Report ( EXAM: CT ABD/PELVIS W/IV CONT ONLY HISTORY: Hx of trauma, R flank bruising today TECHNIQUE: CT abdomen and pelvis with oral and intravenous contrast COMPARISON: None. FINDINGS: There is a moderate to large right-sided pleural effusion measuring 5.8 cm posteriorly and inferiorly in the midline. There is atelectasis to the right lower lobe. No left effusion. No hepatic or splenic laceration. Normal enhancement of the liver and spleen. Normal gallbladder, pancreas, and adrenal glands. There are several large right renal cysts. The largest measures 8.8 cm. Hypodense right renal nodule measuring 2.4 cm. No definite enhancement. No hydronephrosis. No retroperitoneal hematoma. Prominent atherosclerosis. No aortic aneurysm. Prominent stool in rectum. No bowel obstruction. The urinary bladder is distended. There are compression fractures to the T12 and L1 vertebra. There are fractures to the right eighth, ninth, 10th, and 11th ribs. IMPRESSION: 1.Right rib fractures with a moderate to large right effusion and right lower lobe atelectasis 2.Compr ession fractures to T12 and L1 of less than 50% 3.Fecal impaction 4.Renal cysts This exam was performed using automated exposure control, adjustment of mA or kV according to patient size, and/or use of iterative reconstruction technique. Electronically signed by Darci Bowles 12/12/2019 3:38 PM 12/12/19 1538 Interpreting Physician: Darci Bowles MD Dictated Date/Time: 12/12/19 1532 cc: Joshua Bradford MD; Torres Moran MD) - CONSULTS/PCP/HOSPITALIST Notification #1 *Consult/PCP/Hospitalist*: consult w/ Dr. Asencio Time Discussed: 16:04 Consult Disposition: Will see in ED #2 Consult: consult w/ hospitalists Time Discussed: 16:38 (accepted ) Departure - Departure Date of Disposition Decision: 12/12/19 Time of Disposition Decision: 16:05 DIAGNOSIS: Hemothorax on right, Frequent falls, Multiple fractures of ribs, right side, sequela Hematoma of right flank Qualifiers: Encounter type: initial encounter Qualified Code(s): S30.1XXA - Contusion of abdominal wall, initial encounter Dementia Qualifiers: Dementia type: unspecified type Dementia behavioral disturbance: with behavior al disturbance Qualified Code(s): F03.91 - Unspecified dementia with behavioral disturbance Disposition: ADMITTED INPATIENT 09 Certified Medical Emergency: Emergent Condition: Fair Referrals and Follow-Ups: Torres Moran MD [Primary Care Provider] - - Critical Care Note This patient required my direct & personal management of CC.: No Attestation - Physician/ MILAGRO Attestation Patient care was provided by Advanced Practice Provider:: No The physician spent face to face time with patient:: Yes Advanced Practice Provider documentation review:: Supervising physician onsite and consulted in the evaluation and care of this patient. The physician did have a face to face encounter with the patient. This chart was documented by the indicated scribe, (Kavon Samaniego, [place]) and accurately reflects the services I performed and decisions made by me, Joshua Bradford MD, as attested by the provider's signature.
[2019-12-12] MEDS ORDERED: SENSORCAINE-MPF 0.5%/EPI 1:200,000 ONE (17:10)
[2019-12-12] MEDS: LABETALOL ONE ×2 (18:06→20:26)
[2019-12-12] MEDS: OFIRMEV 1000 MG/ISOTONIC SOLN 1,000 MG/100 ML BOTTLE ONE ×2 (18:25→20:26)
[2019-12-12] MEDS ORDERED: NS 1,000 ML ONE (18:39)
--- NOTE | 2019-12-12 18:54 | Diag Imaging Result Doc PS360 ---
EXAM: CHEST-PORTABLE HISTORY: s/p chest tube TECHNIQUE: Single view COMPARISON: Recent CT and chest x-ray from 12/08/2019 FINDINGS: There is a right-sided chest tube. There are several lower right rib fractures. These were present on the recent chest x-ray. There is only a tiny effusion. No pneumothorax. IMPRESSION: Placement of a right-sided chest tube with decreased size of the right effusion. Electronically signed by Darci Bowles 12/12/2019 6:52 PM
--- NOTE | 2019-12-12 20:49 | HISTORY AND PHYSICAL ---
PRIMARY CARE PROVIDER: Dr. Chinchilla. GENERAL SURGEON: Dr. Asencio. CHIEF COMPLAINT: Swelling and pain from fall 2 weeks ago. HISTORY OF PRESENT ILLNESS: Mr. Watkins is a 78-year-old male who was just discharged from our service 2 weeks ago after admitted with frequent falls, traumatic rib fractures, dementia, hypertension, and BPH. He was noted to have multiple rib fractures, traumatic T11, T12 and L1 compression fractures. He was evaluated by both surgery and Orthopedics who recommended braces. Surgery evaluated him for his right hemothorax secondary to the rib fractures. Their recommendation at that time was medical management. There was no need for chest tube placement at that time. There was a suspected superimposed pneumonia on the right as well. He had been on antimicrobial therapy and was continued on Augmentin at discharge to rehab. He had delirium during his hospital course with his baseline dementia that it did improve. Daughter reports since his discharge, he has gotten up a couple of times with physical therapy. He has a sitter who sits with him at night. He has been eating and drinking. However, he became more confused. They felt that this swelling on the right side of his body increased. He has had more bruising and felt that he has had more pain, so she brought him back to the ED to be evaluated. His abdomen and pelvis CT continues to show right rib fractures with a moderate to large right effusion and right lower lobe lateral atelectasis, fecal impaction and compression fractures to T12 and L1 of less than 50%. Dr. Asencio has evaluated the patient and his imaging and he is planning on a right chest tube for his hemothorax and we have been asked to admit the patient to the hospital for his multiple medical comorbidities. PAST MEDICAL HISTORY: 1. Dementia with frequent falls. 2. Hypertension. 3. Enlarged prostate. 4. Questionable congestive heart failure. Last echo with an EF of 65% with LVH, mild pulmonary hypertension. PAST SURGICAL HISTORY: Appendectomy, right hand tendon repair, bilateral cataracts. SOCIAL HISTORY: Quit smoking in his 40s. He did abuse alcohol and was admitted for alcohol abuse and withdrawal back in August 2019. He has not had any alcohol since that time. He had been living in [facility] up until the past week or so ago until he got the flu and then pneumonia and was at [facility] for physical therapy, where he had a fall and sustained his rib fractures and compression fractures and then had an admission to the hospital, and went back for rehab. FAMILY HISTORY: Mother with breast cancer. Father had a stroke. ALLERGIES: To Omnicef. They gave him rash around the eyes. MEDICATIONS: Home medications are being compiled. PERTINENT PROCEDURES: Abdomen pelvis CT: Right rib fractures with moderate to large right effusion and right lower lobe atelectasis. Compression fractures to T2 and L1. Left 50% fecal impaction. Renal cyst. LABORATORY DATA: White count 9, hemoglobin and hematocrit 11 and 37, platelet count is 322,000. Sodium 145, potassium 3.7, BUN 20, creatinine 1, blood glucose is 103. ASSESSMENT AND PLAN: 1. Known right rib fractures secondary to frequent falls, now with moderate to large right effusion with right lower lobe atelectasis. The patient is currently being taken to surgery by Dr. Asencio for chest tube placement. Management of that will be per surgical team. 2. Compression fractures at T12 and L1. Known. 3. Dementia with frequent falls. The patient was in [facility] for physical rehab. We will continue physical therapy when appropriate. 4. Hypertension. 5. Enlarged prostate. 6. Questionable congestive heart failure with an ejection fraction of 65% with left ventricular hypertrophy and mild pulmonary hypertension on echocardiogram back in October 2019. 7. Known dementia. The patient is currently having an increase in his delirium. He is picking at covers. He is eating and drinking, but it is not there. He does not really answer any questions. Daughter is at bedside to answer all questions and give update. 8. Further recommendation to follow physician evaluation, laboratory and diagnostic data. Dictated by DALLAS Whaley for Severo Tran MD cc: MD Brianne Martinez MD Matthew L. Figh, MD
--- NOTE | 2019-12-12 20:58 | HISTORY AND PHYSICAL ---
ADDENDUM: I have seen and examined Mr. Watkins in the emergency room. The daughter who is a physical therapist at [facility] was at the bedside at the time of the encounter. The daughter tells me that Mr. Watkins has been remarkably confused, less responsive, is barely eating anything today has not drank anything today, was brought to the emergency room where he was evaluated including a CAT scan of the abdomen and pelvic which shows moderate to large right pleural effusion and a right lower lobe atelectasis, patient is pending surgery consultation for possible chest tube placement.General: Mr. Watkins 78-year-old elderly male he is in bed. He is remarkably more confused and fidgety than when he was last discharged. The mucous looks remarkably dry but anicteric. He does have some swelling over the right lateral chest wall to the flank associated with some bruise. He is however able to move all extremities. He does not follow commands, every now and then he will say a few words and then go back to sleep. I have reviewed his laboratory data. No major concerns. His CT scan report has also been reviewed. ASSESSMENT: 1. Altered mental status in patient with background history of dementia. Mr. Watkins obviously look less responsive and more confused than when he was last discharged, he seems to be moving all extremities. This seems more of a global encephalopathy picture which I think he had a similar presentation before I think is more related to toxic metabolic encephalopathy. Will gently hydrate him, check his blood cultures and urine culture has also been done to rule out any possible infection. Mr. Watkins was discharged on antimicrobial therapy. 2. Moderate to large right pleural effusion presumably hemothorax. This was evaluated the last time Mr. Watkins was in the hospital by surgery and a decision was made to just observe, it looks like this has been getting worse. My understanding is that surgery Dr. Asencio has been consulted and there is a plan to possibly put in a chest tube. 3. T11-12 and 1 compression fracture from last admission noted. 4. Severe constipation with fecal impaction. Will start the patient back on his on bowel regimen, will give a stat dose of Dulcolax rectal to see if that will help. 5. History of presbyesophagus with delayed swallowing that was noted on previous admission with a modified swallow exam. 6. Generalized weakness and deconditioning noted. Please refer to the details of the history and physical which has been dictated by the ELECTRICAL CONTROL ASSEMBLER in the chart. I have discussed the plan with her. cc: Severo Tran MD MTDD
--- NOTE | 2019-12-12 21:07 | GENERAL SURGERY CONSULTATION ---
DATE: 12/12/2019 REQUESTING PHYSICIAN: Emergency Department. CONSULT CONCERNING: Right-sided hemothorax. HPI: A 78-year-old gentleman with baseline dementia who apparently fell at an outlying rehab facility, who initially was admitted on 12/05/2019 for this and had hemothorax. [place] it was small enough that he could be watched. He continued to improve and was discharged but then came in with worsening ecchymosis on his side. A repeat CT scan showed worsening pleural effusion and hemothorax on the right. He is currently in the process of being admitted by the hospitalist service for this. I was asked to weigh an opinion. The patient has baseline dementia and unable to give further history. PAST MEDICAL HISTORY: 1. Includes dementia with frequent falls. 2. Hypertension. 3. Enlarged prostate. 4. History of questionable congestive heart failure. 5. Recent fall with multiple rib fractures and compression fractures. PAST SURGICAL HISTORY: Includes appendectomy, right hand tendon repair, bilateral cataract. SOCIAL HISTORY: Lives at rehab facility. FAMILY HISTORY: Positive for breast cancer. ALLERGIES: Omnicef. HOME MEDICATIONS: Reviewed. REVIEW OF SYSTEMS: Unable to obtain secondary to patient's mental status. PHYSICAL EXAM: Vital Signs: Patient is currently afebrile. His vital signs are stable. General: No acute distress. HEENT: Normocephalic, atraumatic. Pupils equal, round, reactive to light. Mucous membranes moist. Oropharynx benign. Neck: Supple, trachea midline. Cardiovascular: Regular rate and rhythm. Lungs: Grossly clear. Abdomen: Soft, bruising noted on the right flank and right chest wall, tenderness along this side. Extremities: Moves all extremities. Neurologic: Grossly intact but baseline dementia. Vascular: All extremities perfused. Skin: As noted above. LABORATORY: White blood cell count is 9, hematocrit 37, platelet count 322,000. INR is 1.16. Remainder of labs reviewed. CT scan independently reviewed and radiology report reviewed. ASSESSMENT AND PLAN: A 78-year-old gentleman with worsening right-sided hemothorax. Worsening right-sided hemothorax. At this time, I suspect he needs a chest tube. Discussed with the daughter the risks, benefits, alternatives of procedure. We will plan on doing the operating room given his dementia and his combativeness. We will plan on doing this today. cc: Augie Asencio MD
[2019-12-12] MEDS ORDERED: HALDOL IM ONE (21:39)
[2019-12-13] MEDS ORDERED: CALMOSEPTINE OINTMENT TOP PRN (00:29)
[2019-12-13 04:07] LABS: URINE SOURCE CATH
[2019-12-13 04:14] LABS: BILIRUBIN URINE NEGATIVE (NEGATIVE); BLOOD URINE NEGATIVE (NEGATIVE); COLOR YELLOW; GLUCOSE URINE NEGATIVE (NEGATIVE); KETONE URINE TRACE mg/dL (NEGATIVE); LEUKOCYTES URINE NEGATIVE (NEGATIVE); NITRITE URINE NEGATIVE (NEGATIVE); PROTEIN URINE TRACE mg/dL (NEGATIVE); SP GRAVITY URINE 1.039; TURBIDITY URINE CLEAR (CLEAR); UR EPITHELIAL CELLS <10 /HPF (<10); URINE BACTERIA NEGATIVE /HPF; URINE RBC <10 /HPF (<10); URINE WBC <10 /HPF (<10); UROBILINOGEN URINE NORMAL (NORMAL)
--- NOTE | 2019-12-13 04:47 | OPERATIVE NOTE ---
PROCEDURE DATE: 12/12/2019 PREOPERATIVE DIAGNOSIS: Right hemothorax. POSTOPERATIVE DIAGNOSIS: Right hemothorax. PROCEDURE: Right sided chest tube placement (28-Polish chest tube). SURGEON: Augie Asencio MD. SUPERVISOR MACHINE WORKERS: None. ANESTHESIA: MAC anesthesia with local administered by the surgeon. FINDINGS: 1 L of old blood drained. COMPLICATIONS: None at time of dictation. ESTIMATED BLOOD LOSS: 5 mL. SPECIMENS REMOVED: None. BRIEF HISTORY: A 78-year-old gentleman who was previously admitted after a fall. He had a hemothorax they observed that had became worse, and thought that he needed a chest tube. The risks, benefits, and alternatives were discussed with the family. All questions answered. DESCRIPTION OF PROCEDURE: After informed consent was obtained, patient was brought to the operative theatre, and transferred to the operating table placed in the supine position. IV MAC anesthesia was then performed without complication. A formal time-out was then performed confirming patient, date and procedure. All were in agreement. At that time, attention was taken to the right chest. He was prepped and draped in a sterile fashion. After the time-out, we turned our attention to the 5th intercostal space. Using a local anesthetic, we anesthetized the field. We made a stab incision with 11 blade, and carried it all the way. We were able to bluntly dissect and entered the chest cavity above the 5th intercostal space. We encountered significant amount of blood. We then placed a 28-Polish chest tube into the cavity, and made sure it was able to freely spin. It changed with tidal with respirations. We secured it to the skin and connected to an atrium, and at least 1 L came out if not more. The patient tolerated the procedure well. He was transferred back to recovery room. A chest x-ray is pending. cc: Augie Asencio MD
[2019-12-13 07:03] LABS: AGAP 12; ALB/GLOB RATIO 0.8; ALBUMIN 2.8 g/dL (3.5-5.0); ALKALINE PHOSPHATASE 163 U/L (32-122); BUN 16 mg/dL (8-22); CALCIUM 8.5 mg/dL (8.8-10.2); CHLORIDE 110 mmol/L (98-107); COSMO 292; CREATININE 0.9 mg/dL (0.7-1.2); ESTIMATED GFR > 60; GLUCOSE 106 mg/dL (70-104); GOT 26 U/L (10-34); GPT 12 U/L (10-44); MAGNESIUM 2.2 mg/dL (1.5-2.7); POTASSIUM 3.7 mmol/L (3.5-5.1); SODIUM 146 mmol/L (136-145); TCO2 24 mmol/L (25-35); TOTAL BILIRUBIN 0.71 mg/dL (0.20-1.00); TOTAL PROTEIN 6.1 g/dL (6.3-8.3)
[2019-12-13 07:19] LABS: BASO# 0.03 X1000 (0.0-0.2); BASO% 0.3 % (0.0-0.8); EOS# 0.05 X1000 (0.0-0.7); EOS% 0.4 % (0.0-10.0); HEMATOCRIT 35.3 % (42.0-52.0); HEMOGLOBIN 11.1 g/dL (14.0-18.0); IMM GRAN# 0.03 X1000 (0.0-0.04); IMM GRAN% 0.3 % (0.0-0.5); LYMPH# 0.54 X1000 (1.2-3.4); LYMPH% 4.7 % (20.5-51.1); MCH 30.9 PG (27-31); MCHC 31.4 g/dL (33-37); MCV 98.3 FL (81-99); MONO# 0.94 X1000 (0.11-0.59); MONO% 8.2 % (1.7-9.3); MPV 9.1 FL (7.4-10.4); NEUT# 9.93 X1000 (1.4-6.5); NEUT% 86.1 % (42.2-75.2); PLT 373 X1000 (130-400); RBC 3.59 XMIL (4.7-6.1); RDW 13.9 % (11.5-14.5); WBC 11.52 X1000 (4.8-10.8)
--- NOTE | 2019-12-13 07:33 | Diag Imaging Result Doc PS360 ---
EXAM: CHEST-PORTABLE 12/13/2019 HISTORY: Rchest tube TECHNIQUE: AP portable at 0620 COMMENT: There is a chest tube on the right. There are multiple rib fractures including the posterior right lateral fourth, sixth posterior, seventh posterior, and eighth posterior ribs. No residual pneumothorax is present. There is some atelectasis in the right lower lobe. The left lung is clear. The inspiration is somewhat suboptimal. IMPRESSION: Multiple right rib fractures. Minimal right basilar atelectasis. Electronically signed by Malik Tovar 12/13/2019 7:30 AM
--- NOTE | 2019-12-13 07:40 | GENERAL SURGERY PROGRESS NOTE ---
DATE: 12/13/2019 SUBJECTIVE: The patient has been agitated through the night per the nursing staff. He has been pulling at things. He pulled his dressing off his chest tube, but has not appeared to pull his chest tube out. OBJECTIVE: Vital Signs: The patient is currently afebrile. His vital signs are stable. General: Agitated. Cardiovascular: Regular rate and rhythm. Lungs: No air leak noted to the chest tube. Another 400 or so of serosanguineous output drained since placement. Abdomen: Soft, nontender, nondistended. ASSESSMENT AND PLAN: A 78-year-old gentleman status post right-sided chest tube placement for drainage of hemothorax. Postoperative state. At this time, will place a chest tube to water seal. He is somewhat agitated, and we would like to try to avoid restraints, but if he keeps on pulling at the chest tube, may need to consider this. His chest x-ray looked better from yesterday, so will continue to monitor. Hopefully, we can get the chest tube out soon. cc: Augie Asencio MD
[2019-12-13] MEDS: FLOMAX PO SCH ×2 (09:24→23:06)
[2019-12-13] MEDS: NORCO-5 PO PRN ×2 (09:24→15:00)
[2019-12-13] MEDS: COZAAR PO SCH (09:24)
[2019-12-13] MEDS: CENTRUM SILVER PO SCH (09:24)
[2019-12-13] MEDS: ZOLOFT PO SCH (09:24)
[2019-12-13] MEDS: MAG-OX PO SCH (09:24)
[2019-12-13] MEDS: COENZYME Q10 PO SCH (09:25)
[2019-12-13] MEDS: TENORMIN PO SCH (09:25)
[2019-12-13] MEDS: VITAMIN D PO SCH (09:25)
--- NOTE | 2019-12-13 15:34 | PROGRESS NOTE ---
DATE: 12/13/2019 SUBJECTIVE: This morning Mr. Watkins referred to be doing well. The nurse was at the bedside at the time of the encounter and ham stringer was also at the bedside. The ham stringer was very insistent that she thinks that Mr. Watkins was hurting. However, I asked multiple times Homes himself and he told me he was not hurting. He actually at 1 point, he shouted like was angry and stated categorically that he was not hurting. I understand he became more agitated last night and had to be given a dose of Haldol. OBJECTIVE: Vital signs: Blood pressure is 149/88, pulse 80, respiration is 18, temperature 98.4 degrees. General: Mr. Watkins is a 78-year-old elderly male. He is in bed, no distress. HEENT: Mucosa is pink and slightly dry. Anicteric. Acyanotic. Neck: Supple. Chest: There is a chest tube in the right hemithorax which is currently under water seal. LUNGS: Good air entry bilaterally. Few crackles in the posterior lung field. GI: Abdomen soft, nontender. Bowel sounds present. Extremities: No pedal edema. SLITTER AND REWINDER: Patient has the eyes closed but he would open them and follow commands. He was able to open his mouth for me to look inside with upon command. He also move all his extremities upon command. LABORATORY DATA: WBC is 11.52, hemoglobin is 11.1, platelet count of 373,000. Chemistry is also reviewed. Sodium is 146. A chest x-ray this morning shows multiple rib fractures. Minimal right basilar atelectasis. ASSESSMENT: 1. Altered mental status in patient with background history of dementia. Patient was extensively evaluated on his previous admission including an MRI of the brain which was unremarkable for any acute issues. We are going to be extremely careful with the use of sedatives in Mr. Watkins. We will also get Neurology to evaluate him. 2. Moderate to large right hemothorax. The patient is status post chest tube placement. Surgery is on board. 3. T11, T12 and L1 compression fracture after mechanical fall. The patient was evaluated by Dr. Torres during the last admission. He is supposed to be on back braces and follow up with him. 4. Severe constipation with fecal impaction. We will continue with bowel regimen. The patient has had 4 bowel movements today. We will get a KUB tomorrow morning to follow up accordingly. 5. History of presbyesophagus with delayed swallowing. The patient has been advised to follow-up with aspiration precautions at all times. 6. Generalized weakness and deconditioning noted. 7. Previous history of alcohol use and abuse noted. PLAN: In general, I think Mr. Watkins is doing well. He looks more alert and conversational today than last night. We are going to continue with the gentle hydration. Continue with bowel regimen and his current home medications. We will get neurology to evaluate him as well and go from there. The patient is being seen by Physical therapy. Mr. Watkins came from [facility] and whenever he is medically stable, he is going to go back to [facility] for rehabilitation. This is the 3rd time Mr. Watkins is being admitted since end of last month. cc: Severo Tran MD
[2019-12-13] MEDS: D5 1/2 NS + KCL 20 MEQ 1,000 ML IV SCH (19:01)
[2019-12-13] MEDS: MIRALAX PO SCH (19:02)
[2019-12-13] MEDS: MORPHINE IV PRN (20:36)
[2019-12-13] MEDS: PROSCAR PO SCH (23:06)
[2019-12-14] MEDS: MORPHINE IV PRN ×2 (03:40→21:31)
[2019-12-14 07:09] LABS: HEMATOCRIT 31.1 % (42.0-52.0); HEMOGLOBIN 9.8 g/dL (14.0-18.0); MCH 31.5 PG (27-31); MCHC 31.5 g/dL (33-37); MPV 9.2 FL (7.4-10.4); RBC 3.11 XMIL (4.7-6.1); WBC 9.42 X1000 (4.8-10.8)
[2019-12-14 07:41] LABS: AGAP 8; ALBUMIN 2.7 g/dL (3.5-5.0); BUN 17 mg/dL (8-22); CALCIUM 8.5 mg/dL (8.8-10.2); CHLORIDE 111 mmol/L (98-107); COSMO 291; CREATININE 0.8 mg/dL (0.7-1.2); ESTIMATED GFR > 60; GLUCOSE 109 mg/dL (70-104); PHOSPHORUS 2.4 mg/dL (2.7-4.5); POTASSIUM 3.6 mmol/L (3.5-5.1); SODIUM 145 mmol/L (136-145); TCO2 26 mmol/L (25-35)
--- NOTE | 2019-12-14 07:54 | Diag Imaging Result Doc PS360 ---
EXAM: CHEST-PORTABLE HISTORY: Rchest tube TECHNIQUE: Single view COMPARISON: 12/13/2019 FINDINGS: No change in the right-sided chest tube. There is a small apical pneumothorax. Subcutaneous air is in the right axilla. There are multiple right rib fractures. Worsened atelectasis in the right lung. The left lung remains well expanded and clear. IMPRESSION: Small right apical pneumothorax with worsening atelectasis in the lower right lung Electronically signed by Darci Bowles 12/14/2019 7:52 AM
[2019-12-14] MEDS: VITAMIN D PO SCH (08:26)
[2019-12-14] MEDS: FLOMAX PO SCH ×2 (08:26→21:26)
[2019-12-14] MEDS: COZAAR PO SCH (08:26)
[2019-12-14] MEDS: TENORMIN PO SCH (08:27)
[2019-12-14] MEDS: MIRALAX PO SCH (08:27)
[2019-12-14] MEDS: ZOLOFT PO SCH (08:27)
[2019-12-14] MEDS: COENZYME Q10 PO SCH (08:27)
[2019-12-14] MEDS: MAG-OX PO SCH (08:27)
[2019-12-14] MEDS: CENTRUM SILVER PO SCH (08:27)
--- NOTE | 2019-12-14 09:57 | GENERAL SURGERY PROGRESS NOTE ---
DATE: 12/14/2019 SUBJECTIVE: Patient seems to be doing about the same. He is still significantly agitated. Nursing staff reports that he pulled out his chest tube and disconnected it. He still has a significant amount of output recorded out with almost 300 since I saw it last, with the chest tube being around 1700 in the atrium. OBJECTIVE: Vital Signs: The patient is currently afebrile. His vital signs are stable. General Examination: Agitated. HEENT: Normocephalic, atraumatic. Pupils equal, round, reactive to light. Mucous membranes moist. Oropharynx benign. Neck: Supple. Trachea midline. Cardiovascular: Regular rate and rhythm. Lungs: No air leak noted but chest tube still has drainage. Abdomen: Soft, nontender. ASSESSMENT AND PLAN: A 78-year-old gentleman with right-sided hemothorax with associated rib fractures, with altered mental status. Right-sided chest tube. At this time, keep chest tube in place. We may need to consider restraints if he continues to pull out his chest tube. We need to keep the chest tube in place. It is still draining over 300 a day. We will need to monitor him. cc: Augie Asencio MD
--- NOTE | 2019-12-14 12:22 | PROGRESS NOTE ---
DATE: 12/14/2019 SUBJECTIVE: The patient according to nursing staff, he has been very agitated and restless. I have talked with Dr. Asencio about him, and the patient unfortunately has been trying to pulled out his chest tube. OBJECTIVE: Vital Signs: Temperature 99.1 degrees, heart rate 91, respiratory 14, blood pressure 165/81, and O2 saturation 100% on room air. General: This is a 78-year-old male lying in bed in no acute distress. Now, he is sleepy not able to follow any commands or answer any questions. Cardiovascular: S1, S2 heard. No murmurs, gallops, or rubs. Regular rate and rhythm. Respiratory: On exam, there is a chest tube in the right hemithorax underwater seal. There are a few crackles in the posterior lung field. GI: Abdomen is soft. Nontender to palpation. Bowel sounds present. No organomegaly. Extremities: No clubbing, cyanosis, or edema. Peripheral pulses present in both legs. Neurological: The patient is very sleepy at this time, and not able to follow any commands. LABORATORY DATA: White cell count 9.42, hemoglobin 9.8, hematocrit 31.1 and platelets 337,000 with BMP that is unremarkable today except phosphorus 2.4. ASSESSMENT/PLAN: 1. Large hemothorax. Patient is being followed by Dr. Asencio from General Surgery, that chest tube is still draining pretty much amount of blood 300 in the last [address] with Dr[address] Asencio, and he remarked importance to keep that tube in place. We are going to provide Haldol and Ativan p.r.n. to keep this patient still. 2. Altered mental status in a patient with a background history of dementia. The patient of course continues to be agitated p.o. We are going to increase the doses of Haldol and Ativan p.r.n. It is important to remark that he had a recent MRI of the brain for workup of dementia which was unremarkable for any acute issues. Neurology has been consulted. We will follow recommendations. 3. T-11 and T12 and L1 compression fracture after mechanical fall. We will continue with pain medications. He has been evaluated by Dr. Torres on the last admission. He is supposed to be in braces. 4. Severe constipation with fecal impaction. Patient continues to have bowel movements on a daily basis. We will continue to monitor. 5. History of presbyesophagus. We will continue with aspiration precautions. 6. General weakness and deconditioning. Aware. 7. Disposition: We will continue to monitor this patient closely. He came from [facility]. Whenever he is medically stable, we will transfer this patient over there. cc: Luis Auguste MD MTDD
[2019-12-14] MEDS: NORCO-5 PO PRN ×2 (12:53→21:51)
[2019-12-14] MEDS ORDERED: SODIUM PHOSPHATE 35 MMOL in NS 250 ML IV ONE (13:00)
[2019-12-14] MEDS: D5 1/2 NS + KCL 20 MEQ 1,000 ML IV SCH (13:24)
[2019-12-14] MEDS: HALDOL IV PRN (17:36)
[2019-12-14] MEDS: PROSCAR PO SCH (21:26)
[2019-12-15] MEDS: NORCO-5 PO PRN ×2 (03:34→09:57)
[2019-12-15] MEDS: MORPHINE IV PRN ×2 (04:18→19:04)
[2019-12-15 07:18] LABS: HEMATOCRIT 31.5 % (42.0-52.0); MCH 31.4 PG (27-31); MCHC 31.7 g/dL (33-37); MCV 99.1 FL (81-99); MPV 8.9 FL (7.4-10.4); RBC 3.18 XMIL (4.7-6.1); WBC 7.89 X1000 (4.8-10.8)
--- NOTE | 2019-12-15 07:21 | Diag Imaging Result Doc PS360 ---
EXAM: CHEST-PORTABLE INDICATION: R chest tube TECHNIQUE: One view COMPARISON: 12/14/2019 FINDINGS: The right chest tube is in stable position. The very small apical pneumothorax is approximately stable. Right lower lung zone atelectasis is essentially stable. No new consolidation is identified. Cardiac silhouette is stable. IMPRESSION: Stable chest. Electronically signed by Kennedy Quezada 12/15/2019 7:18 AM
[2019-12-15 07:37] LABS: AGAP 9; ALBUMIN 2.4 g/dL (3.5-5.0); BUN 16 mg/dL (8-22); CALCIUM 8.1 mg/dL (8.8-10.2); CHLORIDE 112 mmol/L (98-107); COSMO 290; CREATININE 0.8 mg/dL (0.7-1.2); ESTIMATED GFR > 60; GLUCOSE 96 mg/dL (70-104); PHOSPHORUS 2.9 mg/dL (2.7-4.5); POTASSIUM 3.5 mmol/L (3.5-5.1); SODIUM 145 mmol/L (136-145); TCO2 24 mmol/L (25-35)
[2019-12-15] MEDS: MIRALAX PO SCH (09:50)
[2019-12-15] MEDS: PERIDEX MT SCH ×2 (09:50→21:00)
[2019-12-15] MEDS: ZOLOFT PO SCH (09:50)
[2019-12-15] MEDS: TENORMIN PO SCH (09:51)
[2019-12-15] MEDS: COENZYME Q10 PO SCH (09:51)
[2019-12-15] MEDS: VITAMIN D PO SCH (09:51)
[2019-12-15] MEDS: FLOMAX PO SCH ×2 (09:51→22:00)
[2019-12-15] MEDS: COZAAR PO SCH (09:51)
[2019-12-15] MEDS: CENTRUM SILVER PO SCH (09:51)
[2019-12-15] MEDS: MAG-OX PO SCH (09:51)
--- NOTE | 2019-12-15 09:58 | GENERAL SURGERY PROGRESS NOTE ---
DATE: 12/15/2019 SUBJECTIVE: Patient is a little less agitated today. His chest x-ray yesterday did show a small apical pneumothorax, it is likely related to the time where he disconnected his chest tube yesterday evening. OBJECTIVE: Vital Signs: Patient is currently afebrile. His vital signs are stable. General: No acute distress. Less agitated. Cardiovascular: Regular rate and rhythm. Lungs: No air leak noted. Chest tube with serosanguineous output. Abdomen: Soft and nontender. ASSESSMENT AND PLAN: A 78-year-old gentleman with right-sided hemothorax with associated rib fractures and altered mental status. Right-sided chest tube. At this time, we will keep the chest tube in place to water seal. We will follow up a chest x-ray in the morning. If he still has pneumothorax, may need to put it back to suction but at this point his drainage output still requires him to keep the chest tube. cc: Augie Asencio MD
--- NOTE | 2019-12-15 12:45 | PROGRESS NOTE ---
DATE: 12/15/2019 SUBJECTIVE: The patient is definitely more alert and awake. No acute issues noted overnight. OBJECTIVE: Vital Signs: Temperature 98.1, heart rate 79, respiratory rate 16, blood pressure 165/75, O2 saturation 97% on 2 L nasal cannula. General: This is a 78-year-old, male, lying in bed in no acute distress. Cardiovascular: S1 and S2 heard. No murmurs, gallops, or rubs. Regular rate and rhythm. Respiratory: Chest tube in the right hemithorax under water seal. Few crackles in the posterior lung jose. GI: Soft, nontender to palpation. Bowel sounds present. No organomegaly. Extremities: No clubbing, cyanosis, or edema. Peripheral pulses present in both legs. Neurological: The patient is more alert and awake. Answers questions appropriately. Moves all 4 extremities. IMAGING AND LABORATORY DATA: X-ray from this morning showed stable chest with no new consolidation, and very small apical pneumothorax is stable. White cell count 7.89, with hemoglobin 10.0, hematocrit 31.5, platelets 341,000, with normal BMP. ASSESSMENT AND PLAN: 1. Large right hemothorax. The patient is being followed with Dr. Asencio from General Surgery. He thinks that he still needs that chest tube. Will follow his recommendations. He is definitely more calmed down. 2. Altered mental status in a patient with background history of dementia. As we mentioned before, the patient is definitely more calmed down. Will continue with current medications. 3. [id number] compression fracture after mechanical fall. Aware. Will continue with pain medication. 4. Severe constipation with fecal impaction. The patient continues to have bowel movements on a daily basis. 5. History of presbyesophagus. Will continue with aspiration precautions. 6. General weakness and deconditioning. Aware. Physical Therapy will work with this patient. 7. Disposition. At this point, the patient is medically stable. We are following the recommendations from Dr. Asencio, and once this patient is cleared from a surgical standpoint, he can be sent to rehab facility at [facility]. They have actually 1 bed available. cc: Luis Auguste MD
[2019-12-15] MEDS: PROSCAR PO SCH (22:00)
--- NOTE | 2019-12-16 06:49 | Diag Imaging Result Doc PS360 ---
CHEST-PORTABLE - 12/16/2019 INDICATION: Rchest tube COMPARISON: 12/15/2019 FINDINGS: Stable right chest tube. Grossly stable soft tissue gas at the right chest wall. No pneumothorax or significant pleural effusion. There is slight decrease in the infiltrate or atelectasis throughout the right midlung. The left lung appears clear. Heart size is top normal. IMPRESSION: No change from prior. Electronically signed by Damien Crow 12/16/2019 6:47 AM
[2019-12-16 08:05] LABS: HEMOGLOBIN 10.2 g/dL (14.0-18.0); MCH 31.7 PG (27-31); MCHC 31.9 g/dL (33-37); MCV 99.4 FL (81-99); MPV 8.9 FL (7.4-10.4); RBC 3.22 XMIL (4.7-6.1); WBC 7.26 X1000 (4.8-10.8)
[2019-12-16] MEDS: COZAAR PO SCH (08:25)
[2019-12-16] MEDS: COENZYME Q10 PO SCH (08:25)
[2019-12-16] MEDS: CENTRUM SILVER PO SCH (08:26)
[2019-12-16] MEDS: MAG-OX PO SCH (08:26)
[2019-12-16] MEDS: ZOLOFT PO SCH (08:26)
[2019-12-16] MEDS: PERIDEX MT SCH ×2 (08:26→22:53)
[2019-12-16] MEDS: VITAMIN D PO SCH (08:26)
[2019-12-16] MEDS: MIRALAX PO SCH (08:26)
[2019-12-16] MEDS: TENORMIN PO SCH (08:26)
[2019-12-16] MEDS: FLOMAX PO SCH ×2 (08:26→22:53)
[2019-12-16 08:28] LABS: AGAP 6; ALBUMIN 2.5 g/dL (3.5-5.0); BUN 14 mg/dL (8-22); CALCIUM 8.4 mg/dL (8.8-10.2); CHLORIDE 108 mmol/L (98-107); COSMO 283; CREATININE 0.9 mg/dL (0.7-1.2); ESTIMATED GFR > 60; GLUCOSE 93 mg/dL (70-104); PHOSPHORUS 2.4 mg/dL (2.7-4.5); POTASSIUM 3.7 mmol/L (3.5-5.1); SODIUM 142 mmol/L (136-145); TCO2 28 mmol/L (25-35)
[2019-12-16] MEDS ORDERED: SODIUM PHOSPHATE 35 MMOL in NS 250 ML IV ONE (09:32)
--- NOTE | 2019-12-16 11:01 | GENERAL SURGERY PROGRESS NOTE ---
DATE: 12/16/2019 SUBJECTIVE: Patient seems a little more calm today. OBJECTIVE: Vital Signs: The patient is currently afebrile. His vital signs are stable. General Examination: No acute distress. Cardiovascular: Regular rate and rhythm. Lungs: Chest tube in place. No air leak but still with almost 300 recorded out. Abdomen: Soft, nontender. ASSESSMENT AND PLAN: A 78-year-old gentleman with right-sided hemopneumothorax. Chest tube. At this time, we will keep the chest tube to water seal. His small apical pneumothorax is improving but he is still having a good amount of drainage, so we would like to see the drainage decrease before we remove the chest tube. We will continue to follow. cc: Augie Asencio MD
[2019-12-16] MEDS: NORCO-5 PO PRN (11:09)
[2019-12-16] MEDS: ATIVAN IV PRN (11:10)
--- NOTE | 2019-12-16 13:11 | PROGRESS NOTE ---
DATE: 12/16/2019 SUBJECTIVE: Patient continues to alert and awake. Apparently, he has been calmed down last night. OBJECTIVE: Vital Signs: Temperature 97.8 degrees, heart rate 86, respiratory rate 18, blood pressure 146/79, O2 saturation 98% on room air. General examination: This is a chronically ill- looking, 78-year-old male, lying in bed in no acute distress. Cardiovascular: S1 and S2 heard. No murmurs, gallops, or rubs. Regular rate and rhythm. Respiratory exam: Chest tube located in the right hemithorax underwater seal, and a few crackles noted in the posterior lung jose GI. GI/Abdomen: Soft, nontender to palpation. Bowel sounds present. No organomegaly. Extremities: No clubbing, cyanosis, or edema. Peripheral pulses present in both legs. Neurological exam: Patient is more alert and awake. Answered questions appropriately. Moves 4 extremities. LABORATORY DATA: White cell count 7.36, hemoglobin 10.2, hematocrit 32.0 platelets are 373. Normal BMP. Phosphorus 2.4. ASSESSMENT AND PLAN: 1. Large right hemithorax. X-ray from this morning did show that the apical pneumothorax is getting better, but from this morning over the last 12 hours, it has drained 600 mL of pleural fluid. Dr. Asencio preferred to continue keeping this chest tube until we do see a reduction in the amount of drainage that this tube is removing. At this point, we will continue with the same management. 2. Altered mental status in a patient with background history of dementia. The patient continues to be more calmed down. We will continue with current medications. 3. L1 compression fracture after mechanical fall. We will continue with pain medications. 4. Severe constipation with fecal impaction. Patient continues to have bowel movements on a daily basis. We will continue to monitor. 5. History of presbyesophagus. Will continue with aspiration precautions. The patient apparently is eating okay as per nursing staff. 6. General weakness and deconditioning. Aware. Physical therapy working with this patient. 7. Disposition: At this point, we will continue to monitor this patient closely. We will continue with this NG tube in place until we do see that there is not too much drainage coming out from there. Once he is cleared by Surgery he can be sent to rehab facility in [facility]. cc: Luis Auguste MD
[2019-12-16] MEDS: PROSCAR PO SCH (22:53)
[2019-12-17] MEDS: HALDOL IV PRN ×2 (02:40→20:14)
--- NOTE | 2019-12-17 06:33 | Diag Imaging Result Doc PS360 ---
EXAM: CHEST-PORTABLE HISTORY: Rchest tube TECHNIQUE: Single view COMPARISON: 12/16/2019 FINDINGS: No change in the right-sided chest tube. There is a tiny apical pneumothorax. Heart remains mildly enlarged. There are infiltrates or contusion in the right lung with multiple rib fractures. The left lung remains clear. IMPRESSION: Stable chest Electronically signed by Darci Bowles 12/17/2019 6:31 AM
[2019-12-17 07:20] LABS: HEMOGLOBIN 10.8 g/dL (14.0-18.0); MCH 31.4 PG (27-31); MCHC 31.8 g/dL (33-37); MCV 98.8 FL (81-99); RBC 3.44 XMIL (4.7-6.1)
[2019-12-17 07:42] LABS: AGAP 10; ALBUMIN 2.5 g/dL (3.5-5.0); BUN 14 mg/dL (8-22); CALCIUM 8.3 mg/dL (8.8-10.2); CHLORIDE 110 mmol/L (98-107); COSMO 287; CREATININE 0.8 mg/dL (0.7-1.2); ESTIMATED GFR > 60; GLUCOSE 86 mg/dL (70-104); PHOSPHORUS 2.7 mg/dL (2.7-4.5); POTASSIUM 3.5 mmol/L (3.5-5.1); SODIUM 144 mmol/L (136-145); TCO2 24 mmol/L (25-35)
--- NOTE | 2019-12-17 10:25 | GENERAL SURGERY PROGRESS NOTE ---
DATE: 12/17/2019 SUBJECTIVE: The patient seems a little bit more controlled and not agitated today. OBJECTIVE: Vital Signs: Patient is currently afebrile. His vital signs are stable. General: Resting. Cardiovascular: Regular rate and rhythm. Lungs: Chest tube still with at least 200 to 300 out of serous fluid. No air leak noted. Abdomen: Soft, nontender. ASSESSMENT AND PLAN: A 78-year-old gentleman with a right-sided chest tube secondary to hemothorax. Right-sided chest tube. At this time, still with enough drainage to keep the chest tube in. We will monitor over the weekend, may be able to pull it. His pneumothorax seems to have resolved, so hopefully if his fluid output decreases, he can have it removed. cc: Augie Asencio MD
--- NOTE | 2019-12-17 11:59 | PROGRESS NOTE ---
DATE: 12/17/2019 SUBJECTIVE: Patient is sleepy this morning. According to nursing staff, he has received some Ativan because he was somehow restless overnight. OBJECTIVE: Vital Signs: Temperature 97.3 degrees, heart rate 79, respiratory rate 18, blood pressure 178/92, and O2 saturation 98% on room air. General: This is a is a chronically ill- looking 78-year-old male lying in bed in no acute distress. Cardiovascular: S1, S2 heard. No murmurs, gallops, or rubs. Regular rate and rhythm. Respiratory: There is a chest tube in the right hemithorax under water seal and rhonchi at posterior left lung field. GI: Abdomen is soft and nontender to palpation. Bowel sounds present. No organomegaly. Extremities: No clubbing, cyanosis or edema. Peripheral pulses present in both legs. Neurologic: The patient is definitely more sleepy today because he received recently Ativan. LABORATORY DATA: White cell count 8.0, hemoglobin 10.8, hematocrit 34, and platelets 359,000 with normal BMP. ASSESSMENT AND PLAN: 1. Large right hemithorax. X-ray from this morning shows still on small apical pneumothorax. Drain still continues to remove a good amount of pleural fluid. At this point, I have talked with Dr. Asencio to continue keeping this chest tube on this patient. We will see if we were able to remove it over the weekend. At this point, we will continue following recommendations from General Surgery. 2. Altered mental status in a patient with background history of dementia. The patient has been agitated at night so he was given sedating medication. At this point, he is definitely sleepy. We will continue to monitor. 3. L1 compression fracture after mechanical fall. We will continue with pain medications. 4. Severe constipation with fecal impaction resolved. 5. History of presbyesophagus. We will continue with aspiration precautions. 6. General weakness and deconditioning. Physical Therapy working with this patient. 7. Disposition: At this point, we will keep this patient over the weekend. We will see if we are able to remove chest tube. If we can do that, then we will try to send to rehab facility next week. cc: MD ESME Junior
[2019-12-17] MEDS: VITAMIN D PO SCH (17:19)
[2019-12-17] MEDS: ZOLOFT PO SCH (17:19)
[2019-12-17] MEDS: CENTRUM SILVER PO SCH (17:19)
[2019-12-17] MEDS: FLOMAX PO SCH ×2 (17:20→20:14)
[2019-12-17] MEDS: MIRALAX PO SCH (17:20)
[2019-12-17] MEDS: MAG-OX PO SCH (17:20)
[2019-12-17] MEDS: PERIDEX MT SCH ×2 (17:20→20:14)
[2019-12-17] MEDS: TENORMIN PO SCH (17:20)
[2019-12-17] MEDS: COZAAR PO SCH (17:20)
[2019-12-17] MEDS: COENZYME Q10 PO SCH (17:21)
[2019-12-17] MEDS: ATIVAN IV PRN (18:20)
[2019-12-17] MEDS: PROSCAR PO SCH (20:14)
[2019-12-18 07:05] LABS: HEMATOCRIT 35.7 % (42.0-52.0); HEMOGLOBIN 11.4 g/dL (14.0-18.0); MCH 31.1 PG (27-31); MCHC 31.9 g/dL (33-37); MCV 97.5 FL (81-99); MPV 8.8 FL (7.4-10.4); RBC 3.66 XMIL (4.7-6.1); WBC 7.69 X1000 (4.8-10.8)
--- NOTE | 2019-12-18 07:11 | Diag Imaging Result Doc PS360 ---
EXAM: CHEST-PORTABLE 12/18/2019 HISTORY: Rchest tube TECHNIQUE: AP portable at 0615 COMMENT: The right chest tube remains. There is a small residual apical pneumothorax on the right measuring slightly less than 10 mm at the apex. This is not changed significantly since the previous study. The soft tissue emphysema seen previously on the right in the lateral chest wall has diminished slightly. There is apparently slightly less pleural fluid or thickening present on the right. The inspiration is not quite as optimal as on the previous study of 12/17/2018. Otherwise are has been no significant change. IMPRESSION: Small residual right pneumothorax. Diminished soft tissue emphysema on the right. Electronically signed by Malik Tovar 12/18/2019 7:09 AM
[2019-12-18 07:25] LABS: AGAP 10; ALBUMIN 2.7 g/dL (3.5-5.0); BUN 12 mg/dL (8-22); CALCIUM 8.4 mg/dL (8.8-10.2); CHLORIDE 106 mmol/L (98-107); COSMO 280; CREATININE 0.8 mg/dL (0.7-1.2); ESTIMATED GFR > 60; GLUCOSE 85 mg/dL (70-104); PHOSPHORUS 2.3 mg/dL (2.7-4.5); POTASSIUM 3.3 mmol/L (3.5-5.1); SODIUM 141 mmol/L (136-145); TCO2 25 mmol/L (25-35)
[2019-12-18] MEDS: ZOLOFT PO SCH (13:06)
[2019-12-18] MEDS: CENTRUM SILVER PO SCH (13:06)
[2019-12-18] MEDS: PERIDEX MT SCH ×2 (13:06→20:26)
[2019-12-18] MEDS: TENORMIN PO SCH (13:06)
[2019-12-18] MEDS: VITAMIN D PO SCH (13:06)
[2019-12-18] MEDS: NORVASC PO SCH ×2 (13:07→20:26)
[2019-12-18] MEDS: MIRALAX PO SCH (13:07)
[2019-12-18] MEDS: COZAAR PO SCH (13:07)
[2019-12-18] MEDS: MAG-OX PO SCH (13:07)
[2019-12-18] MEDS: COENZYME Q10 PO SCH (13:07)
[2019-12-18] MEDS: FLOMAX PO SCH ×2 (13:07→20:26)
--- NOTE | 2019-12-18 13:46 | PROGRESS NOTE ---
DATE: 12/18/2019 SUBJECTIVE: The patient is sleepy this morning. I have talked with the daughter, who was at bedside, about his clinical situation and progression of his illness. OBJECTIVE: Vital Signs: Temperature 98.3 degrees, heart rate 74, respiratory rate 18, blood pressure 196/84, O2 saturation 98% on room air. General: This is a chronically ill-looking, 78- year-old male, lying in bed, in no acute distress. Cardiovascular: S1, S2 heard. No murmurs, gallops, or rubs. Regular rate and rhythm. Respiratory: Chest tube in the right hemithorax under water-seal, and rhonchi is noted in the posterior left lung. GI: The abdomen is soft, nondistended, nontender to palpation. Bowel sounds present. No organomegaly. Extremities: No clubbing, cyanosis, or edema. Peripheral pulses present in both legs. Neurological: The patient is sleepy this morning. Does not follow commands but moves all 4 extremities spontaneously. LABORATORY DATA: White cell count is 7.69, hemoglobin 11.4, hematocrit 35.7, platelets 393,000. BMP reveals potassium is 3.3. ASSESSMENT AND PLAN: 1. Large right hemothorax. X-ray is basically stable and revealed still a small apical pneumothorax. During the last 24 hours, it seems like he has drained 160 mL of pleural fluid. At this point, we will continue following recommendations from General Surgery. 2. Altered mental status in a patient with background history of dementia. We will continue with Ativan p.r.n. 3. T11, T12, and L1 compression fracture after mechanical fall. Aware. We will continue with pain medications. 4. History of presbyesophagus with delayed swallowing. The patient continues to be on aspiration precautions. 5. Disposition. At this point, we will continue to monitor this patient closely. General Surgery managing the chest tube. cc: Luis Auguste MD MTDD
--- NOTE | 2019-12-18 15:56 | GENERAL SURGERY PROGRESS NOTE ---
DATE: 12/18/2019 SUBJECTIVE: No events. He is quite somnolent. No fevers. No tachycardia. Oxygen saturation 90% on room air. OBJECTIVE: General: He is arousable but not really conversant. Cardiovascular: Normal rate. Pulmonary: Right chest tube is in place. There is no air leak. There is serous drainage. It looks like 160 mL was recorded but I reviewed his x-ray. It shows a small residual right pneumothorax, less subcu air. The sentinel hole is approximating in the chest wall, but seems to be within the chest. ASSESSMENT/PLAN: 78-year-old gentleman with right-sided hemothorax status post chest tube placement, small apical pneumothorax. We will repeat his x-ray tomorrow. I suspect we can remove his tube in the next 24-48 hours. cc: Mustapha Gibbons MD
[2019-12-18] MEDS: PROSCAR PO SCH (20:27)
--- NOTE | 2019-12-19 07:13 | Diag Imaging Result Doc PS360 ---
EXAM: CHEST-PORTABLE 12/19/2019 HISTORY: Rchest tube TECHNIQUE: AP portable at 0559 COMMENT: There is a right chest tube. There is still some soft tissue emphysema in the right chest wall and there is a small apical pneumothorax currently measuring slightly over 9 mm at the apex. There continues to the right lower lobe atelectatic opacity. Some residual pleural thickening is present on the right. IMPRESSION: Slightly diminished or stable pneumothorax. Electronically signed by Malik Tovar 12/19/2019 7:10 AM
[2019-12-19 08:18] LABS: AGAP 9; ALBUMIN 2.5 g/dL (3.5-5.0); BUN 12 mg/dL (8-22); CALCIUM 8.5 mg/dL (8.8-10.2); CHLORIDE 105 mmol/L (98-107); COSMO 280; CREATININE 0.8 mg/dL (0.7-1.2); ESTIMATED GFR > 60; GLUCOSE 115 mg/dL (70-104); PHOSPHORUS 2.1 mg/dL (2.7-4.5); POTASSIUM 3.5 mmol/L (3.5-5.1); SODIUM 140 mmol/L (136-145); TCO2 26 mmol/L (25-35)
[2019-12-19] MEDS: COENZYME Q10 PO SCH (08:47)
[2019-12-19] MEDS: CENTRUM SILVER PO SCH (08:47)
[2019-12-19] MEDS: COZAAR PO SCH (08:48)
[2019-12-19] MEDS: MAG-OX PO SCH (08:48)
[2019-12-19] MEDS: MIRALAX PO SCH (08:48)
[2019-12-19] MEDS: FLOMAX PO SCH ×2 (08:48→21:56)
[2019-12-19] MEDS: ZOLOFT PO SCH (08:48)
[2019-12-19] MEDS: NORVASC PO SCH ×2 (08:49→21:56)
[2019-12-19] MEDS: VITAMIN D PO SCH (08:49)
[2019-12-19] MEDS: TENORMIN PO SCH (08:49)
[2019-12-19] MEDS: PERIDEX MT SCH ×2 (08:49→21:56)
[2019-12-19] MEDS ORDERED: SODIUM PHOSPHATE 35 MMOL in NS 250 ML IV ONE (09:30)
--- NOTE | 2019-12-19 10:30 | PROGRESS NOTE ---
DATE: 12/19/2019 SUBJECTIVE: This morning, he is definitely more awake today. Talking with his family. No complaints at this time. OBJECTIVE: Vital Signs: Temperature 97.9 degrees, heart rate 80, respiratory rate 16, blood pressure 156/78, O2 saturation 98% on room air. General Examination: This is a 78-year-old, male, lying in bed, in no acute distress. Cardiovascular Examination: S1 and S2 heard. No murmurs, gallops, or rubs. Regular rate and rhythm. Respiratory System: Clear bilaterally to auscultation. There is a chest tube in the right hemithorax under water seal. Rhonchi noted in the posterior left lung. The patient is not using any accessory muscles or having work of breathing. Abdomen: Soft, nontender to palpation. Bowel sounds present. No organomegaly. Extremities: No clubbing, cyanosis, or edema. Peripheral pulses present in both legs. Neurological Examination: The patient is definitely more awake today. Followed commands. Laboratory Data: Reviewed. ASSESSMENT AND PLAN: 1. Large right hemothorax. X-ray shows basically improvement in that condition. He had drained during the last 24 hours just 50 mL per hour. General surgery is following this patient. We will see when they decide to remove the tube. 2. Altered mental status in a patient with background history of dementia. We will continue with Ativan as needed. 3. T11, T12, and L1 compression fracture after mechanical fall. Aware. We will continue with pain medications. 4. History of presbyesophagus with delayed swallowing. Patient continues to be on aspiration precautions. We will continue to monitor. 5. Disposition. I think, after chest tube removal, we came start sending this patient to a rehab facility. cc: Luis Auguste MD
[2019-12-19] MEDS: NEUTRA-PHOS PO SCH ×3 (13:05→21:56)
[2019-12-19] MEDS: NORCO-5 PO PRN (14:42)
--- NOTE | 2019-12-19 15:04 | GENERAL SURGERY PROGRESS NOTE ---
DATE: 12/19/2019 SUBJECTIVE: No respiratory complaints. No fevers. No tachycardia. He is on 95% room air. OBJECTIVE: General, he is more alert this morning, conversant. Cardiovascular normal rate. His right chest tube is in place. No air leak. Minimal serosanguineous drainage. Reviewed his labs and reviewed his x-ray. Persistent small apical pneumothorax. ASSESSMENT AND PLAN: A 78-year-old gentleman status post chest tube placement for hemothorax related to a fall and rib fractures, small apical pneumothorax. We will place it back to suction to see if we can get this to expand prior to chest tube removal. Otherwise, from an effusion standpoint, I think this has been adequately drained. cc: Mustapha Gibbons MD
--- NOTE | 2019-12-19 18:41 | Diag Imaging Result Doc PS360 ---
EXAM: CHEST-PORTABLE 12/19/2019 HISTORY: Bruising to left side rib area/chest tube in right TECHNIQUE: AP portable at 1831 COMMENT: The right chest tube remains in place. There is a residual right apical pneumothorax measuring 11 mm. This is slightly larger than at the time the previous study at 0559. There is also slightly more soft tissue emphysema in the right chest wall. There are multiple right rib fractures. IMPRESSION: Slightly worsened pneumothorax and soft tissue emphysema. This may indicate a persistent air leak. Electronically signed by Malik Tovar 12/19/2019 6:39 PM
[2019-12-19] MEDS: PROSCAR PO SCH (21:56)
--- NOTE | 2019-12-20 06:06 | GENERAL SURGERY PROGRESS NOTE ---
DATE: 12/20/2019 SUBJECTIVE: Patient seems to be doing okay by the nursing staff. Reviewed notes from the weekend. He had a worsening pneumothorax. OBJECTIVE: Vital Signs: Patient is currently afebrile. His vital signs are stable. General: No acute distress. Cardiovascular: Regular rate and rhythm. Lungs: No air leak noted. Chest tube to suction. Abdomen: Soft and nontender. ASSESSMENT AND PLAN: An 79-year-old gentleman with a right-sided hemopneumothorax. Hemopneumothorax. At this time, he has had a worsening pneumothorax. I suspect it is related to him pulling on his chest tubes because it looked like it was sitting in a hole on his previous chest tube on the chest x-ray, and is slowly coming out. We will need to see what this morning's x-ray shows. If he continues to have a pneumothorax, and his chest tube continues to be dislodged, we may need to place another one in. We could potentially place a PneumoDart, but we will need to follow. If it is only small, we may need to consider just pulling the chest tube and monitoring him. cc: Augie Asencio MD
[2019-12-20 08:46] LABS: AGAP 13; ALBUMIN 2.7 g/dL (3.5-5.0); BUN 12 mg/dL (8-22); CALCIUM 8.3 mg/dL (8.8-10.2); CHLORIDE 105 mmol/L (98-107); COSMO 276; CREATININE 0.8 mg/dL (0.7-1.2); ESTIMATED GFR > 60; GLUCOSE 80 mg/dL (70-104); PHOSPHORUS 2.8 mg/dL (2.7-4.5); POTASSIUM 4.1 mmol/L (3.5-5.1); SODIUM 139 mmol/L (136-145); TCO2 21 mmol/L (25-35)
--- NOTE | 2019-12-20 09:35 | Diag Imaging Result Doc PS360 ---
EXAM: CHEST-PORTABLE HISTORY: pneumothorax TECHNIQUE: Single view COMPARISON: 12/19/2019 FINDINGS: There is a right-sided chest tube. There is a small apical pneumothorax. This has not increased in size and may is slightly smaller. There are multiple right rib fractures. The left lung remains well expanded and clear. IMPRESSION: Slight interval improvement Electronically signed by Darci Bowles 12/20/2019 9:33 AM
[2019-12-20] MEDS: PERIDEX MT SCH ×3 (09:57→23:28)
[2019-12-20] MEDS: VITAMIN D PO SCH (09:57)
[2019-12-20] MEDS: MAG-OX PO SCH (09:57)
[2019-12-20] MEDS: COZAAR PO SCH (09:57)
[2019-12-20] MEDS: MIRALAX PO SCH (09:57)
[2019-12-20] MEDS: FLOMAX PO SCH ×2 (09:57→23:05)
[2019-12-20] MEDS: NORVASC PO SCH ×2 (09:57→23:05)
[2019-12-20] MEDS: CENTRUM SILVER PO SCH (09:57)
[2019-12-20] MEDS: ZOLOFT PO SCH (09:58)
[2019-12-20] MEDS: TENORMIN PO SCH (09:58)
[2019-12-20] MEDS: NEUTRA-PHOS PO SCH ×4 (09:58→23:05)
[2019-12-20] MEDS: COENZYME Q10 PO SCH (09:58)
--- NOTE | 2019-12-20 12:28 | PROGRESS NOTE ---
DATE: 12/20/2019 SUBJECTIVE: The patient is confused today. No other issues noted as per nursing staff. OBJECTIVE: Vital Signs: Temperature 98.3 degrees, heart rate 73, respiratory rate 18, blood pressure 145/79, O2 saturation 96% on room air. General Examination: This is a 78-year-old, male, lying in bed, confused, in no acute distress. Cardiovascular Examination: S1 and S2 heard. No murmurs, gallops, or rubs. Regular rate and rhythm. Respiratory Examination: Chest tube in the right hemithorax. There is water-seal, rhonchi noted in the posterior left lung. The patient is not using any accessory muscles or having work of breathing. Abdomen: Soft. Nontender to palpation. Bowel sounds present. No organomegaly. Extremities: No clubbing, cyanosis, or edema. Peripheral pulses present in both legs. Neurological Examination: The patient is more alert and awake. Follows commands. Laboratory: Reviewed. ASSESSMENT AND PLAN: 1. Large right hemopneumothorax. Apparently, the chest tube has gotten dislodged from its original position because this patient was trying to pull it off. General surgery is following this patient. They are waiting for results of chest x-ray today to see what will be the next step in his management. 2. Altered mental status in a patient with background history of dementia. His mental status is fluctuating. We will continue with Ativan as needed. 3. T11, T12, and L1 compression fractures after a mechanical fall. Aware. We will continue home medications. 4. History of presbyesophagus with delayed swallowing. The patient continues to be on aspiration precautions. We will continue to monitor. 5. Disposition. Following lead from general surgery regarding management of chest tube and hemopneumothorax. cc: Luis Auguste MD MTDD
[2019-12-20] MEDS: NORCO-5 PO PRN (18:41)
[2019-12-20] MEDS: PROSCAR PO SCH (23:05)
--- NOTE | 2019-12-21 06:52 | GENERAL SURGERY PROGRESS NOTE ---
DATE: 12/21/2019 SUBJECTIVE: Patient seems to be more interactive today. His chest x-ray yesterday showed still with a small apical pneumothorax. Chest tubes had 100 recorded out today. OBJECTIVE: Vital Signs: Patient is currently afebrile. His vital signs are stable. General: No acute distress. Cardiovascular: Regular rate and rhythm. Lungs: No air leak noted on chest tube. Abdomen: Soft, nontender, nondistended. ASSESSMENT AND PLAN: An 79-year-old gentleman status post fall with rib fractures and associated hemopneumothorax. Hemopneumothorax: At this time, he has a small apical pneumothorax. We will put his chest tube to water seal and see what it looks like. He is slowly having his chest tube pulled out I think secondary to agitation, but we will see what his chest x-ray looks like today and may even consider pulling it later today if not tomorrow based off the chest x-ray today. We will continue to follow while he is here. cc: Augie Asencio MD
--- NOTE | 2019-12-21 07:19 | Diag Imaging Result Doc PS360 ---
EXAM: CHEST-PORTABLE INDICATION: follow up pneumothorax TECHNIQUE: One view COMPARISON: 12/20/2019 FINDINGS: The right chest tube is in stable position. There is a small right pneumothorax at the right lower lung zone as opposed to the apical pneumothorax seen on the previous study. It appears slightly larger but this is probably due to differences in positioning. There is vague atelectasis at the right lower lung zone. The left lung remains clear. Cardiac silhouette is stable. IMPRESSION: Questionable marginal increase in the small right pneumothorax. Stable chest, otherwise. Electronically signed by Kennedy Quezada 12/21/2019 7:17 AM
--- NOTE | 2019-12-21 07:36 | PROGRESS NOTE ---
DATE: 12/21/2019 SUBJECTIVE: The patient is a little bit more awake this morning. He answered basic questions but then he got confused in place and time. OBJECTIVE: Vital Signs: Temperature 98.1, heart rate 72, respiratory rate 21, blood pressure 131/76, O2 saturation 95% on room air. General Examination: This is a chronically ill-appearing, 79-year-old, male lying in bed, in no acute distress. Cardiovascular Examination: S1 and S2 heard. No murmurs, gallops, or rubs. Regular rate and rhythm. Respiratory Examination: Chest tube in the right hemithorax, water seal. Rhonchi is noted in the posterior left lung. Patient is not using any accessory muscles or having work of breathing. Abdomen: Soft, nontender to palpation. Bowel sounds present. No organomegaly. Extremities: No clubbing, cyanosis, or edema. Peripheral pulses present in both legs. Neurological Examination: The patient is awake but pleasantly confused. Followed basic commands. Laboratory Data: Reviewed. ASSESSMENT AND PLAN: 1. Right hemopneumothorax. At this point, following the lead from general surgery. We do not have the results of the x-ray from today but we will check with surgery, what they are planning to do. 2. Altered mental status in a patient with background history of dementia. Mental status continues to fluctuate. Apparently, he had been more calmed down yesterday. A couple days ago, trying to pull out chest tube. At this point, we will continue with current management. 3. T11, T12, and L1 compression fractures after a mechanical fall. Aware. We will continue with home medications. 4. History of presbyesophagus with delayed swallowing. Will continue to be on aspiration precautions. The patient is doing fine. 5. Disposition. At this point, following lead from general surgery. Once he is cleared by them, then we will send this patient to a rehab facility. cc: Luis Auguste MD
[2019-12-21 07:46] LABS: AGAP 7; ALBUMIN 2.7 g/dL (3.5-5.0); BUN 15 mg/dL (8-22); CALCIUM 8.2 mg/dL (8.8-10.2); CHLORIDE 101 mmol/L (98-107); COSMO 276; CREATININE 0.9 mg/dL (0.7-1.2); ESTIMATED GFR > 60; GLUCOSE 93 mg/dL (70-104); PHOSPHORUS 2.7 mg/dL (2.7-4.5); POTASSIUM 3.5 mmol/L (3.5-5.1); SODIUM 138 mmol/L (136-145); TCO2 30 mmol/L (25-35)
[2019-12-21] MEDS: COZAAR PO SCH (08:29)
[2019-12-21] MEDS: COENZYME Q10 PO SCH (08:30)
[2019-12-21] MEDS: NORVASC PO SCH ×2 (08:30→21:37)
[2019-12-21] MEDS: ZOLOFT PO SCH (08:30)
[2019-12-21] MEDS: CENTRUM SILVER PO SCH (08:30)
[2019-12-21] MEDS: NEUTRA-PHOS PO SCH (08:30)
[2019-12-21] MEDS: FLOMAX PO SCH ×2 (08:30→21:37)
[2019-12-21] MEDS: TENORMIN PO SCH (08:30)
[2019-12-21] MEDS: VITAMIN D PO SCH (08:30)
[2019-12-21] MEDS: PERIDEX MT SCH ×2 (08:31→21:41)
[2019-12-21] MEDS: MIRALAX PO SCH (08:31)
[2019-12-21] MEDS: MAG-OX PO SCH (08:31)
[2019-12-21] MEDS: PROSCAR PO SCH (21:36)
[2019-12-21] MEDS: NORCO-5 PO PRN (21:37)
[2019-12-22 07:28] LABS: AGAP 7; ALBUMIN 2.6 g/dL (3.5-5.0); BUN 16 mg/dL (8-22); CALCIUM 8.7 mg/dL (8.8-10.2); CHLORIDE 103 mmol/L (98-107); COSMO 278; CREATININE 0.9 mg/dL (0.7-1.2); ESTIMATED GFR > 60; GLUCOSE 91 mg/dL (70-104); PHOSPHORUS 2.4 mg/dL (2.7-4.5); SODIUM 139 mmol/L (136-145); TCO2 29 mmol/L (25-35)
--- NOTE | 2019-12-22 08:06 | PROGRESS NOTE ---
DATE: 12/22/2019 SUBJECTIVE: The patient appeared more awake but is still pleasantly confused. He answered some basic questions. He denies any pain where the chest tube is placed. OBJECTIVE: Vital Signs: Temperature 98.0 degrees, heart rate 77, respiratory rate 18, blood pressure 156/70, O2 saturation 97% on room air. General Examination: This is a chronically ill- looking, 79-year-old, male, lying in bed, in no acute distress. Cardiovascular Examination: S1 and S2 heard. No murmurs, gallops, or rubs. Regular rate and rhythm. Respiratory Examination: Chest tube in the right hemothorax to water seal. Rhonchi noted in the posterior left lung. Patient is not using any accessory muscles or having work of breathing. Abdomen: Soft. Nontender to palpation. Bowel sounds present. No organomegaly. Extremities: No clubbing, cyanosis, or edema. Peripheral pulses present in both legs. Neurological Examination: The patient is awake and alert but pleasantly confused. Followed basic commands. Laboratory Data: Pending at the time of dictation. ASSESSMENT AND PLAN: 1. Right hemopneumothorax. X-ray from yesterday showed questionable marginal increase of the small right pneumothorax. At this point, we will follow recommendations from Dr. Asencio from general surgery. According to what has been documented in the chart, the chest tube has been 100 mL for the last 24 hours. 2. Altered mental status in a patient with a background history of dementia. At this point, the patient is more stable. We will continue to monitor. 3. T11, T12, and L1 compression fractures after a mechanical fall. Aware. We will continue with pain medications. 4. History of presbyesophagus with delayed swallowing. We will continue aspiration precautions. 5. Disposition. Following lead from general surgery. Once he is cleared by them, the patient will go to a rehab facility. cc: Luis Auguste MD
[2019-12-22] MEDS: TENORMIN PO SCH (08:14)
[2019-12-22] MEDS: FLOMAX PO SCH ×2 (08:14→22:25)
[2019-12-22] MEDS: PERIDEX MT SCH ×2 (08:14→22:26)
[2019-12-22] MEDS: COENZYME Q10 PO SCH (08:14)
[2019-12-22] MEDS: VITAMIN D PO SCH (08:14)
[2019-12-22] MEDS: CENTRUM SILVER PO SCH (08:15)
[2019-12-22] MEDS: MAG-OX PO SCH (08:15)
[2019-12-22] MEDS: ZOLOFT PO SCH (08:15)
[2019-12-22] MEDS: MIRALAX PO SCH (08:15)
[2019-12-22] MEDS: NORVASC PO SCH ×2 (08:15→22:25)
[2019-12-22] MEDS: COZAAR PO SCH (08:15)
--- NOTE | 2019-12-22 09:34 | GENERAL SURGERY PROGRESS NOTE ---
DATE: 12/22/2019 SUBJECTIVE: Patient seems to be doing okay. He seems a little more agitated this morning. OBJECTIVE: Vital Signs: Patient is currently afebrile. His vital signs are stable. General: No acute distress. Cardiovascular: Regular rate and rhythm. Lungs: No air leak noted but chest tube had over 300 out in the last 24 hours. Abdomen: Soft, nontender. ASSESSMENT AND PLAN: An 79-year-old gentleman status post right chest tube placement for hemopneumothorax. Chest tube. At this time, chest x-ray seems a little bit better, but he had 300 out in the last 24 hours, still a little bit high to remove it. If we can get his chest tube output to decrease a little bit, I would consider removing it, but at this point, I am concerned that he would reaccumulate fluid relatively fast. We will continue to monitor. cc: Augie Asencio MD
--- NOTE | 2019-12-22 10:34 | Diag Imaging Result Doc PS360 ---
CHEST-1 VIEW - 12/22/2019 INDICATION: PULLED CHEST TUBE OUT COMPARISON: 12/21/2019 FINDINGS: The right chest tube has been removed. There is no pneumothorax. No significant pleural effusion. There is some stable patchy atelectasis in the right midlung. No new infiltrates. Stable moderate cardiomegaly. IMPRESSION: Chest tube removed. Otherwise no complication or change from prior. Electronically signed by Damien Crow 12/22/2019 10:32 AM
[2019-12-22] MEDS: PROSCAR PO SCH (22:26)
[2019-12-22] MEDS: NORCO-5 PO PRN (23:54)
[2019-12-23 08:16] LABS: AGAP 8; ALBUMIN 2.4 g/dL (3.5-5.0); BUN 15 mg/dL (8-22); CALCIUM 8.4 mg/dL (8.8-10.2); CHLORIDE 106 mmol/L (98-107); COSMO 280; CREATININE 0.9 mg/dL (0.7-1.2); ESTIMATED GFR > 60; GLUCOSE 87 mg/dL (70-104); PHOSPHORUS 2.6 mg/dL (2.7-4.5); POTASSIUM 3.1 mmol/L (3.5-5.1); SODIUM 140 mmol/L (136-145); TCO2 26 mmol/L (25-35)
[2019-12-23] MEDS ORDERED: SODIUM PHOSPHATE 35 MMOL in NS 250 ML IV ONE (08:48)
[2019-12-23] MEDS ORDERED: KLOR-CON PO ONE (08:48)
--- NOTE | 2019-12-23 09:13 | GENERAL SURGERY PROGRESS NOTE ---
DATE: 12/23/2019 SUBJECTIVE: Patient was agitated yesterday and pulled out his chest tube. Nursing staff responded appropriately and placed an occlusive dressing. We got a chest x-ray, and there did not appear to be an obvious pneumothorax. The patient seems to be resting okay through the night. OBJECTIVE: Vital Signs: Patient is currently afebrile. His vital signs are stable. General exam: No acute distress. HEENT: Normocephalic, atraumatic. Pupils equal, round, reactive to light. Mucous membranes moist. Oropharynx benign. Neck: Supple. Trachea midline. Cardiovascular: Regular rate and rhythm. Lungs: No increased labored breathing. Abdomen: Soft, nontender. Extremities: Seems to move all extremities. Neurologic: Resting. Skin: No signs of jaundice. Vascular: All extremities perfused. LABORATORY: None. X-RAY: Chest x-ray after we pulled the chest tube reviewed from yesterday. Chest x-ray from this morning pending. ASSESSMENT AND PLAN: An 79-year-old gentleman status post removal of chest tube for right hemopneumothorax. 1. Hemopneumothorax: At this time, we will get a chest x-ray to see if there is any reaccumulation of the pneumothorax, but otherwise may be close to be able to get discharged back to his facility. cc: Augie Asencio MD
--- NOTE | 2019-12-23 09:54 | Diag Imaging Result Doc PS360 ---
EXAM: CHEST-PORTABLE HISTORY: follow up pneumothorax TECHNIQUE: Single view COMPARISON: 12/22/2019 FINDINGS: There are multiple right rib fractures. No pneumothorax. Small contusion remains. The left lung remains well expanded and clear. IMPRESSION: Stable exam. No right-sided pneumothorax. Electronically signed by Darci Bowles 12/23/2019 9:52 AM
--- NOTE | 2019-12-23 10:34 | DISCHARGE SUMMARY ---
ADMISSION DATE: 12/12/2019 DISCHARGE DATE: 12/23/2019 DIAGNOSES: 1. Right pleural effusion and hemothorax, status post chest tube placement 12/12/2019 and removal 12/22/2019. 2. Rib fractures. 3. T12 and L1 compression fracture. 4. Hypertension. 5. Enlarged prostate. 6. Dementia with frequent falls. 7. Constipation with fecal impaction, resolved. 8. History of presbyesophagus. The patient is on aspiration precautions. 9. Generalized weakness and deconditioning. DIAGNOSTICS: 1. 12/12/2019: CT of the abdomen and pelvis revealed rib fractures with moderate large right effusion and right lower lobe atelectasis. Compression fractures of T12 and L1 of less than 50%. Fecal impaction and renal cyst. 2. 12/12/2019: Chest x-ray revealed placement of right-sided chest tube with decreased size of the right effusion. 3. 12/13/2019: Chest x-ray revealed multiple rib fractures. Minimal right basilar atelectasis. 4. 12/14/2019: Chest x-ray reveals small right apical pneumothorax with worsening atelectasis in the right lower lobe. 5. 12/16/2019: Chest x-ray reveals no change from prior. 6. 12/17/2019: Chest x-ray reveals stable chest. No change of the chest tube. There is a tiny apical pneumothorax. Heart remains mildly enlarged. There are infiltrates or contusion in the right lung with multiple rib fractures. The left lung remains clear. 7. 12/18/2019: Chest x-ray reveals small residual right pneumothorax. 8. 12/19/2019: Chest x-ray reveals slightly diminished or stable pneumothorax. 9. 12/22/2019: Chest x-ray reveals chest tube removed. There is no pneumothorax. No significant pleural effusion. There is some patchy atelectasis in the right middle lung. No new infiltrates. Stable cardiomegaly. MICROBIOLOGY: 1. Blood cultures x2 revealed no growth after 5 days. 2. Stool for occult blood. CONSULTANTS: Dr. Augie Asencio. PROCEDURES: 12/12/2019: Right chest tube insertion. HOSPITAL COURSE: Mr. Watkins presented to the emergency room after falling, having swelling to the right side of his body. He was found to have a right effusion and right hemothorax. Chest tube was placed on the . It was discontinued on the . Pneumothorax has resolved. He was followed by General Surgery throughout the hospitalization. He is back to his baseline mentation. He has had episodes of agitation throughout the hospitalization, which is normal for his dementia. In regards to his presbyesophagus and delayed swallowing, we continued aspiration precautions. DISCHARGE VITAL SIGNS: Blood pressure is 137/61, heart rate of 76, respirations 17, temperature is 97.6 degrees oral with room air saturations 95 to 97 percent. DISCHARGE PHYSICAL EXAM: General: This is an 79-year-old gentleman who is sitting up in the bed confused. He is not oriented, but he is at his baseline mentation. HEENT: Head is normocephalic, atraumatic. Pupils equal, round, react to light. Sclerae are anicteric. Mucous membranes are moist. Neck: Supple with trachea midline. Cardiovascular: Regular rate and rhythm. S1 and S2 appreciated. Peripheral pulses palpable x4 extremities. Pulmonary: Breath sounds are clear. Chest rises and falls symmetric with respiration. Chest wall is nontender to palpation. Gastrointestinal: Abdomen is soft, nontender, nondistended with bowel sounds in all 4 quadrants. Skin: Skin is warm and dry. DISCHARGE MEDICATIONS: 1. Flomax 0.4 mg p.o. b.i.d. 2. Co-Q 10 one capsule daily. 3. Zoloft 100 mg p.o. daily. 4. MiraLAX 1 dose daily. 5. Centrum Silver 1 daily. 6. Magnesium 400 mg p.o. daily. 7. Cozaar 100 mg daily. 8. Lidoderm patch as directed. 9. [place] 7.5 one q. 4 hours p.r.n. 10. Fish oil 1 p.o. daily. 11. Proscar 5 p.o. at bedtime. 12. Vitamin B 12 1000 mcg sublingual daily. 13. Vitamin D 3 5000 daily. 14. Atenolol 50 mg p.o. daily. 15. Aspirin 81 mg p.o. daily. 16. Vitamin C 500 mg p.o. daily. 17. Tylenol 650 q. 6 hours p.r.n. FOLLOWUP: Dr. Augie Asencio in 1 week. He is being discharged in transfer to [facility] to complete rehab in stable condition with family members present. TIME SPENT: This is a greater than 30 minute discharge. Dictated by DALLAS Orona for Luis Auguste MD cc: DALLAS Orona MD
[2019-12-23] MEDS: CENTRUM SILVER PO SCH (10:57)
[2019-12-23] MEDS: COZAAR PO SCH (10:57)
[2019-12-23] MEDS: PERIDEX MT SCH (10:58)
[2019-12-23] MEDS: COENZYME Q10 PO SCH (10:58)
[2019-12-23] MEDS: ZOLOFT PO SCH (10:58)
[2019-12-23] MEDS: FLOMAX PO SCH (10:58)
[2019-12-23] MEDS: TENORMIN PO SCH (10:58)
[2019-12-23] MEDS: MAG-OX PO SCH (10:59)
[2019-12-23] MEDS: NORVASC PO SCH (10:59)
[2019-12-23] MEDS: MIRALAX PO SCH (10:59)
[2019-12-23] MEDS: VITAMIN D PO SCH (11:00)
[2019-12-23 12:04] VITALS: BP 151/86
[2019-12-23] MEDS ORDERED: NEUTRA-PHOS PO ONE (14:21)
== END 2019-12-23 15:49 | DRG 199 ==
LOC: SUPCPDRO → ED 11:15 → SUATTDRO 18:40 → 4N 18:40
PROVIDERS: ATTEND Internal Medicine